=== PATIENT | male | born 1955 | race Two or more races ===

== ENCOUNTER 2018-06-04 16:06 | Inpatient (IN) | payer MEDICAID ==
[~2018-06-04] VITALS: Ht 185.4 cm; Wt 94.8 kg
[2018-06-04 16:08] VITALS: BP 119/82
[2018-06-04] MEDS: Albuterol ud Inhalation HHN SCH ×2 (16:28→17:05)
[2018-06-04] MEDS: Ipratropium 0.02% Inh Soln 2.5ml UD HHN SCH ×2 (16:28→17:05)
--- NOTE | 2018-06-04 16:36 | Emergency Room Report ---
History of Present Illness General Chief Complaint: Dyspnea/Respdistress Source: Patient, EMS Present Illness HPI 63-year-old male with a history of ESRD on Friday HD and COPD presents with shortness of breath for 1 week with associated cough with sputum production, reports it was worse during his dialysis session today, and he only received 2 hours worth of HD. He is actively getting a breathing treatment here with albuterol and ipratropium and feels improvement already. Allergies: Coded Allergies: PENICILLINS (Verified Allergy, Unknown, 06/04/18) Patient History Past Medical History: see triage record Reviewed Nursing Documentation: PMH: Agreed; PSxH: Agreed Nursing Documentation-PMH Hx Hypertension: Yes Hx Asthma: Yes Hx Dialysis: Yes Review of Systems All Other Systems: negative except mentioned in HPI Physical Exam Vital Signs Date Time Temp Pulse Resp B/P (MAP) Pulse Ox O2 Delivery O2 Flow Rate FiO2 06/04/18 16:02 86 24 117/86 100 Nasal Cannula 2.0 06/04/18 16:20 32 Sp02 EP Interpretation: reviewed, abnormal General Appearance: alert, non-toxic, mild distress Head: normocephalic Eyes: bilateral eye normal inspection, bilateral eye PERRL, bilateral eye EOMI ENT: normal ENT inspection, hearing grossly normal, normal pharynx, no angioedema, normal voice, moist mucus membranes Neck: normal inspection, full range of motion, supple, supple/symm/no masses Respiratory: chest non-tender, no rhonchi, no wheezing, decreased breath sounds , accessory muscle use, chest symmetrical, palpation of chest normal Cardiovascular #1: normal peripheral pulses, regular rate, rhythm, JVD, edema - 1+ B/L LE edema Cardiovascular #2: 2+ radial (R), 2+ radial (L) Gastrointestinal: normal inspection, non tender, soft, no mass, no guarding, no rebound Rectal: deferred Genitourinary: normal inspection, no CVA tenderness Musculoskeletal: back normal, gait/station normal, normal range of motion, non- tender, no calf tenderness Neurologic: alert, responsive, 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 Patient has long-standing tobacco use history of 40 pack/years in the past, and reports he's been diagnosed with COPD when I ask him, but he does not have a recorded documented history of this in our EMR. however, his ABG on nasal cannula oxygen reveals hyperoxia and slight metabolic acidosis with over compensatory respiratory alkalosis versus hyperventilation syndrome, inconsistent with COPD or CO2 retention, therefore steroids were not given. He may also just be fluid overloaded in need of further volume removal from HD or have CHF, will be admitted. Troponin negative but BNP elevated. NO chest pain. EKG Diagnostic Results EKG Time: 16:18 EP Interpretation: no st-t changes, LVH and TWI in lateral limb leads Rate: normal Rhythm: NSR ST Segments: no acute changes ASA given to the pt in ED: No Rhythm Strip Diag. Results Rhythm Strip Time: 16:36 EP Interpretation: yes Rate: 75 Rhythm: NSR, no PVC's, no ectopy Chest X-Ray Diagnostic Results Chest X-Ray Diagnostic Results : Chest X-Ray Ordered: Yes # of Views/Limited/Complete: 1 View Indication: Shortness of Breath EP Interpretation: Yes PA Xray: Interpretation reviewed Interpretation: no pneumothorax, other - +bibasilar opacities/effusion L>R Impression: Other - pna, effusion Electronically Signed by: Fuad Snowden MD Last Vital Signs Date Time Temp Pulse Resp B/P (MAP) Pulse Ox O2 Delivery O2 Flow Rate FiO2 06/04/18 16:31 32 06/04/18 16:20 77 20 99 Nasal Cannula 3.0 06/04/18 16:08 119/82 FUAD SNOWDEN M.D Jun 04, 2018 16:36
[2018-06-04 16:50] LABS: BASOPHILS % (AUTO) 1.7 % (0.0-2.0); EOSINOPHILS % (AUTO) 3.6 % (0.0-3.0); HEMATOCRIT 42.5 % (42.0-52.0); HEMOGLOBIN 13.4 G/DL (14.2-18.0); LYMPHOCYTES % (AUTO) 25.1 % (20.0-45.0); MEAN CORPUSCULAR VOLUME 99 FL (80-99); MONOCYTES % (AUTO) 15.6 % (1.0-10.0); NEUTROPHILS % (AUTO) 54.1 % (45.0-75.0); PLATELET COUNT 175 K/UL (150-450); RED BLOOD COUNT 4.27 M/UL (4.70-6.10); RED CELL DISTRIBUTION WIDTH 20.1 % (11.6-14.8); WHITE BLOOD COUNT 4.9 K/UL (4.8-10.8)
[2018-06-04 17:01] LABS: ANION GAP 10 mmol/L (5-15); BLOOD UREA NITROGEN 31 mg/dL (7-18); CALCIUM 8.8 MG/DL (8.5-10.1); CARBON DIOXIDE 20 MMOL/L (21-32); CHLORIDE 104 MMOL/L (98-107); CREATININE 3.9 MG/DL (0.55-1.30); POTASSIUM 5.1 MMOL/L (3.5-5.1); SODIUM 134 MMOL/L (136-145)
[2018-06-04 17:07] LABS: INR 1.1 (0.9-1.1)
[2018-06-04] MEDS ORDERED: Aspirin Baby 81mg ORAL ONE (17:15)
[2018-06-04 17:18] LABS: ALANINE AMINOTRANSFERASE 11 U/L (12-78); ALBUMIN 2.7 G/DL (3.4-5.0); ALBUMIN/GLOBULIN RATIO 0.6 (1.0-2.7); ALKALINE PHOSPHATASE 64 U/L (46-116); ASPARTATE AMINO TRANSFERASE 19 U/L (15-37); BILIRUBIN,TOTAL 0.3 MG/DL (0.2-1.0); CREATINE KINASE 43 U/L (26-308)
--- NOTE | 2018-06-04 17:28 | Diagnostic Imaging Report ---
Indication: Shortness of Technique: One view of the chest Comparison: none Findings: There are bilateral pleural effusions. There is right lung volume loss. There is mild interstitial congestion. There is atelectasis of the left lung base there is a tunneled dialysis catheter in place. The heart is enlarged. Impression: Cardiomegaly Evidence of congestive heart failure with interstitial edema and bilateral pleural effusions
[2018-06-04 18:16] VITALS: BP 111/58
[2018-06-04] MEDS ORDERED: CALCIUM ACETAT667 M1 PO (20:48)
[2018-06-04] MEDS ORDERED: VITAMIN D250000 UNI1 ORAL (20:48)
[2018-06-04] MEDS ORDERED: AZITHROMYCIN500 MG ORAL (20:48)
[2018-06-04] MEDS ORDERED: PREDNISONE20 MG ORAL (20:48)
[2018-06-04] MEDS ORDERED: RENAGEL800 MG ORAL (20:48)
[2018-06-04] MEDS ORDERED: SILVADENE20 GM TP (20:48)
[2018-06-04] MEDS ORDERED: ARANESP200 MCG/1 IV (20:48)
[2018-06-04] MEDS ORDERED: HYDRALAZIN20 MG/1 ML IVP (20:48)
[2018-06-04] MEDS ORDERED: TYLENOL EXTRA500 MG ORAL (20:48)
[2018-06-04] MEDS ORDERED: AQUAPHOR99 GM TP (20:48)
[2018-06-04] MEDS ORDERED: BUMETANIDE2 MG ORAL (20:48)
[2018-06-04] MEDS ORDERED: IPRATROPIU0.2 MG/1 M HHN (20:48)
[2018-06-04] MEDS ORDERED: HEPARIN SO5000 UNIT2 SUBQ (20:48)
[2018-06-04] MEDS ORDERED: DEPAKOTE500 MG PO (20:48)
[2018-06-04] MEDS ORDERED: ALBUTEROL2.5 MG/3 M INH (20:48)
[2018-06-04] MEDS ORDERED: HALOPERIDOL5 MG/1 M2 IM (20:48)
[2018-06-04 21:40] VITALS: BP 123/68
[2018-06-04 22:15] VITALS: BP 103/80
[2018-06-05] VITALS: BP 115/79
[2018-06-05] MEDS: Albuterol/Ipratropium 3ml neb HHN PRN ×2 (02:25→15:38)
[2018-06-05 04:00] VITALS: BP 123/87
[2018-06-05] MEDS: NovoLOG Insulin Flexpen SUBQ SCH ×4 (05:57→20:23)
[2018-06-05 08:00] VITALS: BP 118/76
[2018-06-05] MEDS: Docusate 100mg cap ORAL SCH ×2 (08:25→17:13)
[2018-06-05] MEDS: Heparin 5000 units/ml inj SUBQ SCH ×2 (08:28→20:24)
[2018-06-05 09:47] LABS: ALANINE AMINOTRANSFERASE 11 U/L (12-78); ALBUMIN 2.5 G/DL (3.4-5.0); ALBUMIN/GLOBULIN RATIO 0.6 (1.0-2.7); ALKALINE PHOSPHATASE 59 U/L (46-116); ANION GAP 13 mmol/L (5-15); ASPARTATE AMINO TRANSFERASE 13 U/L (15-37); BILIRUBIN,TOTAL 0.2 MG/DL (0.2-1.0); BLOOD UREA NITROGEN 49 mg/dL (7-18); CALCIUM 8.9 MG/DL (8.5-10.1); CARBON DIOXIDE 20 MMOL/L (21-32); CHLORIDE 104 MMOL/L (98-107); CHOLESTEROL 116 MG/DL (< 200); CREATININE 5.2 MG/DL (0.55-1.30); HDL CHOLESTEROL 41 MG/DL (40-60); POTASSIUM 5.4 MMOL/L (3.5-5.1); SODIUM 137 MMOL/L (136-145); TRIGLYCERIDES 50 MG/DL (30-150)
[2018-06-05 09:53] LABS: BASOPHILS % (AUTO) 1.8 % (0.0-2.0); EOSINOPHILS % (AUTO) 1.8 % (0.0-3.0); HEMATOCRIT 41.5 % (42.0-52.0); HEMOGLOBIN 12.8 G/DL (14.2-18.0); MEAN CORPUSCULAR VOLUME 101 FL (80-99); MONOCYTES % (AUTO) 15.2 % (1.0-10.0); NEUTROPHILS % (AUTO) 58.2 % (45.0-75.0); PLATELET COUNT 181 K/UL (150-450); RED BLOOD COUNT 4.12 M/UL (4.70-6.10); RED CELL DISTRIBUTION WIDTH 20.2 % (11.6-14.8)
[2018-06-05 12:00] VITALS: BP_SYST 121; BP_SYST 146; BP_DIAS 60; BP_DIAS 77
--- NOTE | 2018-06-05 12:04 | Consultation ---
Consult Note Assessment/Plan Renal consult dictated # [id number] Robert Lemons MD Jun 05, 2018 12:04
[2018-06-05] MEDS ORDERED: LORazepam 0.5mg tab ORAL PRN (13:30)
[2018-06-05] MEDS ORDERED: Acetaminophen 500mg (ES) tab ORAL PRN (13:30)
--- NOTE | 2018-06-05 15:38 | Consultation ---
Consult Note Consult Note DICT # [id number] Conrado Cantrell MD Jun 05, 2018 15:38
[2018-06-05 16:00] VITALS: BP_SYST 123; BP_SYST 146; BP_DIAS 60; BP_DIAS 83
[2018-06-05] MEDS ORDERED: Azithromycin 250mg tab ORAL SCH (16:00)
[2018-06-05] MEDS: Bumetanide 1mg tab ORAL SCH (17:13)
--- NOTE | 2018-06-05 18:45 | Consultation ---
DATE OF CONSULTATION: 06/05/2018 NEPHROLOGY CONSULTATION CONSULTING PHYSICIAN: Robert Lemons M.D. REFERRING PHYSICIAN: Luís Baumann M.D. REASON FOR CONSULTATION: End-stage renal disease, requiring hemodialysis. HISTORY OF PRESENT ILLNESS: This is a 63-year-old male with history of end-stage renal disease, on hemodialysis every Friday, , and Friday. I saw him during dialysis on the day of admission. He was complaining shortness of breath. He states that he has been getting short of breath for about a week and was increasing. It was thought maybe he was fluid overloaded. However even after removal more than 2.5 liters of fluid, he was still short of breath. Around 2.5 hours into dialysis, paramedics were called. The patient was brought into the emergency room. He was admitted with acute respiratory failure. PAST MEDICAL HISTORY: The patient does have history of COPD and hypertension and is on dialysis as I mentioned. SOCIAL HISTORY: The patient used to smoke a pack a day for many years, then he went to alf and he had to stop smoking. This is about 10 months ago. He lives in a [employer] and [facility]. ALLERGIES: Penicillin. REVIEW OF SYSTEMS: Complaining of dry cough and shortness of breath. PHYSICAL EXAMINATION: GENERAL: The patient is a 63-year-old male, in no acute distress. VITALS SIGNS: Blood pressure is 118/76, pulse 74, temperature 97.5, respiratory rate 20. HEENT: [place] conjunctivae. Anicteric sclerae. NECK: Supple. LUNGS: Coarse breath sounds bilaterally. HEART: S1 and S2 without murmurs or rubs ABDOMEN: Soft, nontender. EXTREMITIES: No cyanosis or edema. LABORATORY FINDINGS: CBC shows a WBC of 5000, hematocrit 41.5, hemoglobin is 12.8, and platelet is 181,000. Chemistry panel shows a serum sodium 134, potassium 5.4, chloride 104, CO2 20, BUN 49, creatinine 5.2, glucose 76. ASSESSMENT: This is a 64-year-old male, who was admitted shortness of breath, possibly chronic obstructive pulmonary disease exacerbation. The patient may have also acute bronchitis. I doubt fluid overload since ultrafiltration yesterday really did not improve his symptoms. He has history of hypertension. PLAN: The patient will be dialyzed again tomorrow. He needs to be on bronchodilators. Pulmonary consultation will be obtained. Labs will be followed and adjustment will be made in the patient's regimen. Thank you very much, Dr. Baumann for this consultation. Robert Lemons M.D. DR: Nirav JOB#: [id number] CC:
[2018-06-05] MEDS ORDERED: Albuterol ud Inhalation HHN SCH (19:00)
[2018-06-05] MEDS ORDERED: Albuterol ud Inhalation HHN PRN (19:00)
[2018-06-05] MEDS: Albuterol/Ipratropium 3ml neb HHN SCH ×2 (19:20→23:46)
[2018-06-05 20:00] VITALS: BP 125/83
--- NOTE | 2018-06-05 20:05 | Cardiology Progress Note ---
Assessment/Plan Assessment/Plan [id number] probably dcm copd on home osygen per hs esrd on hd acei if ok with renal need more uf bb if ok with pulm onc acute chf imporves entresto non a good option iwht esrd Objective Last 24 Hour Vital Signs Date Time Temp Pulse Resp B/P (MAP) Pulse Ox O2 Delivery O2 Flow Rate FiO2 06/05/18 19:20 Nasal Cannula 3.0 32 06/05/18 19:20 83 18 96 Nasal Cannula 3.0 32 06/05/18 19:20 96 Nasal Cannula 3.0 32 06/05/18 16:00 82 06/05/18 16:00 98.0 79 20 123/83 (96) 96 06/05/18 15:48 82 22 98 Nasal Cannula 3.0 32 06/05/18 15:38 84 25 97 Nasal Cannula 3.0 32 06/05/18 12:00 97.5 81 21 121/77 (92) 100 06/05/18 12:00 79 06/05/18 09:00 Nasal Cannula 2.0 Nasal Cannula 2.0 06/05/18 08:15 Nasal Cannula 2.0 28 06/05/18 08:15 95 Nasal Cannula 2.0 28 06/05/18 08:15 74 21 Nasal Cannula 2.0 28 06/05/18 08:00 97.5 76 20 118/76 (90) 97 06/05/18 08:00 74 06/05/18 04:00 74 06/05/18 04:00 96.8 81 19 123/87 (99) 97 06/05/18 02:30 89 20 99 Nasal Cannula 3.0 32 06/05/18 02:13 75 20 96 Nasal Cannula 3.0 32 06/05/18 00:00 97.3 73 18 115/79 (91) 99 06/05/18 00:00 74 06/04/18 22:23 Nasal Cannula 3.0 06/04/18 22:15 97.5 70 18 103/80 (88) 98 06/04/18 22:12 71 06/04/18 22:00 98.5 74 20 123/68 100 Nasal Cannula 2.0 87 06/04/18 21:40 98.5 87 20 123/68 100 Nasal Cannula 2.0 Intake and Output 06/04/18 06/05/18 19:00 07:00 Intake Total 150 ml 240 ml Balance 150 ml 240 ml Intake Oral 240 ml IV Total 150 ml # Voids 1 2 # Bowel Movements 1 Laboratory Tests Test 06/05/18 07:20 White Blood Count 5.0 K/UL (4.8-10.8) Red Blood Count 4.12 M/UL (4.70-6.10) L Hemoglobin 12.8 G/DL (14.2-18.0) L Hematocrit 41.5 % (42.0-52.0) L Mean Corpuscular Volume 101 FL (80-99) H Mean Corpuscular Hemoglobin 31.0 PG (27.0-31.0) Mean Corpuscular Hemoglobin Concent 30.8 G/DL (32.0-36.0) L Red Cell Distribution Width 20.2 % (11.6-14.8) H Platelet Count 181 K/UL (150-450) Mean Platelet Volume 7.6 FL (6.5-10.1) Neutrophils (%) (Auto) 58.2 % (45.0-75.0) Lymphocytes (%) (Auto) 23.0 % (20.0-45.0) Monocytes (%) (Auto) 15.2 % (1.0-10.0) H Eosinophils (%) (Auto) 1.8 % (0.0-3.0) Basophils (%) (Auto) 1.8 % (0.0-2.0) Sodium Level 137 MMOL/L (136-145) Potassium Level 5.4 MMOL/L (3.5-5.1) H Chloride Level 104 MMOL/L (98-107) Carbon Dioxide Level 20 MMOL/L (21-32) L Anion Gap 13 mmol/L (5-15) Blood Urea Nitrogen 49 mg/dL (7-18) H Creatinine 5.2 MG/DL (0.55-1.30) H Estimat Glomerular Filtration Rate 11.3 mL/min (>60) Glucose Level 76 MG/DL (74-106) Hemoglobin A1c 5.3 % (4.3-6.0) Calcium Level 8.9 MG/DL (8.5-10.1) Total Bilirubin 0.2 MG/DL (0.2-1.0) Aspartate Amino Transf (AST/SGOT) 13 U/L (15-37) L Alanine Aminotransferase (ALT/SGPT) 11 U/L (12-78) L Alkaline Phosphatase 59 U/L (46-116) Pro-B-Type Natriuretic Peptide > 99294 pg/mL (0-125) H Total Protein 6.9 G/DL (6.4-8.2) Albumin 2.5 G/DL (3.4-5.0) L Globulin 4.4 g/dL Albumin/Globulin Ratio 0.6 (1.0-2.7) L Triglycerides Level 50 MG/DL (30-150) Cholesterol Level 116 MG/DL (< 200) LDL Cholesterol 73 mg/dL (<100) HDL Cholesterol 41 MG/DL (40-60) Cholesterol/HDL Ratio 2.8 (3.3-4.4) L Thyroid Stimulating Hormone (TSH) 3.097 uiU/mL (0.358-3.740) aBldo Mcneill MD Jun 05, 2018 20:05
[2018-06-05] MEDS ORDERED: Valproic Acid 250mg/5ml Liquid ORAL SCH (21:00)
--- NOTE | 2018-06-05 21:45 | Consultation ---
DATE OF CONSULTATION: 06/05/2018 CARDIOLOGY CONSULTATION CONSULTING PHYSICIAN: Baldo Mcneill M.D. REQUESTING PHYSICIAN: Luís Baumann M.D. REASON FOR REFERRAL: Congestive heart failure. HISTORY OF PRESENT ILLNESS: This is an elderly gentleman, who has presented to the hospital because of shortness of breath. Basically, he has history of end-stage renal disease and has been on dialysis for the past 8 months to about a year or so. He has been getting increasing shortness of breath. He has several medical problems including chronic obstructive pulmonary disease for which he is on home oxygen therapy, but more recently he has had increasing episodes of shortness of breath. He is not able to lay down at home and he has 2 pillow usage dyspnea on exertion to the point that he has stopped really moving around much even with his oxygen that he has been using for some time. He had one episode of chest pain, sharp sensation in the left side of the chest that only lasted a second, otherwise, he does not have any shortness of breath. He uses 2 pillows. He does not really have any dizziness or lightheadedness on standing and he has occasional palpitations. PAST MEDICAL HISTORY: Positive for high blood pressure. Positive for end-stage renal disease, on hemodialysis. No history of heart attack. No cancer. No stroke. No hepatitis or tuberculosis. He does have asthma and emphysema as mentioned. No ulcers. He has no liver problems, thyroid problems, anemia, arthritis, HIV, or blood clots. ALLERGIES: He is allergic to penicillin. SOCIAL HISTORY: He used to smoke. He quit approximately 10 months ago. Does not drink alcoholic beverages. He denies any drug use. REVIEW OF SYSTEMS: GASTROINTESTINAL: He has had some constipation. GENITOURINARY: He still makes some urine. He is on hemodialysis 3 times a week. CONSTITUTIONAL: Negative. NEUROLOGICAL: Negative. PHYSICAL EXAMINATION: GENERAL: Shows to be elderly gentleman, in no respiratory distress, although he is somewhat tachypneic. NECK: Supple. No jugular venous distention. LUNGS: Decreased breath sounds noted bilaterally. There is decreased air movement also noted bilaterally. There are some crackles noted on the right base. CARDIAC: Regular rate and rhythm. No heaves or thrills noted. There is a faint holosystolic regurgitant murmur noted at the apex. ABDOMEN: Soft and nontender. Positive bowel sounds. EXTREMITIES: There is no clubbing, cyanosis, or edema. NEUROLOGIC: He is awake, alert, responsive, and in no apparent respiratory distress. LABORATORY VALUES: He has got a chest x-ray that shows evidence of pulmonary edema and congestive heart failure. White count of 5, hemoglobin 12.8, and platelet count of 181,000. Blood gases, pH is 7.33, pCO2 32, pO2 of 200, bicarb was 18, and 97% saturation. INR 1.1 and PTT of 56. Sodium is 137, potassium 5.4, chloride 104, bicarb 20, BUN of 49, creatinine 5.2, and a glucose of 76. Liver function tests are normal. Troponin 0.07. ProBNP is greater than 35,000. Albumin of 2.4. TSH is 3.097. Total cholesterol 116 with LDL of 73 and HDL of 43. His electrocardiogram shows sinus rhythm. The voltage criteria for left ventricular hypertrophy requires QRS widening. There is a right bundle-branch conduction defect. There is a T-wave inversion in 1 and aVL as well as V1 and V2. Thus, the left anterior fascicular block may be present. Echocardiogram shows preliminary severe LV enlargement, global hypokinesis, ejection fraction 50%, moderate right ventricular enlargement, severe mitral regurgitation, and diastolic relaxation abnormalities and pulmonary pressures in the 50s. ASSESSMENT/PLAN: 1. Congestive heart failure. 2. Chronic obstructive pulmonary disease. 3. End-stage renal disease. On hemodialysis. 4. Home oxygen therapy. 5. Probable dilated cardiomyopathy. 6. History of hypertension. PLAN: This patient was seen in cardiac consultation. Echocardiogram has been performed. Need to be confirmed. The patient has increasing shortness of breath over the past few weeks and this is not an acute event. Nevertheless, he has had increasing shortness of breath on top of his chronic obstructive pulmonary disease for which he uses oxygen that makes it difficult for him to be comfortable. He should be, at this time, treated with a combination of medications including VINCE inhibitors, if okay with Nephrology and if once his congestive heart failure resolves, he should be receiving some beta-blockers if not contraindicated from the Pulmonary point of view. Interests are unlikely to be adequate level in this patient with end-stage renal disease, and he is getting diuretics today here in the hospital with 2 mg 3 times a day although I suspect he may require more ultrafiltration to help him with that. An ischemia evaluation may be an appropriate test to do to exclude an underlying coronary disease, however, that would require further discussion. Cardiac enzymes will be checked as a matter of routine. Baldo Mcneill M.D. DR: CHRISTOS JOB#: [id number] CC:
--- NOTE | 2018-06-05 22:45 | Consultation ---
DATE OF CONSULTATION: 06/05/2018 PULMONARY CONSULTATION CONSULTING PHYSICIAN: Conrado Cantrell M.D. REFERRING PHYSICIAN: Luís Baumann M.D. REASON FOR CONSULTATION: Chronic obstructive pulmonary disease exacerbation. HISTORY OF PRESENT ILLNESS: The patient is a 63-year-old male, former smoker with a history of end-stage renal disease, on dialysis, and chronic obstructive pulmonary disease, who presented with cough, congestion, and shortness of breath for a week. Since presenting to the ER, he was afebrile with T-max 98.5, and he has been saturating well on about 2 liters of oxygen. He has otherwise been hemodynamically stable. Chest x-ray in the emergency department demonstrated mild pulmonary vascular congestion with bilateral effusions. The patient has been seen by renal and the plan for dialysis are underway. He actually states he feels better. He is not a good historian himself and some of his history is obtained from . His blood gas, 7.33///16. White count 5, hemoglobin of 12, and platelet count of 181, bicarb is 20 on the chemistry and he had a proBNP of greater than 35,000. PAST MEDICAL HISTORY: 1. End-stage renal disease on dialysis. 2. Chronic obstructive pulmonary disease. 3. Congestive heart failure. 4. Hypertension. 5. Some underlying psychiatric disorder. ALLERGIES: Penicillin. MEDICATIONS: Prior to admission medications reviewed. Current medications reviewed. SOCIAL HISTORY: He is a former smoker. Denies any current tobacco use. No drug or alcohol use per the patient. FAMILY HISTORY: Noncontributory. REVIEW OF SYSTEMS: Negative other than the history of present illness. PHYSICAL EXAMINATION: VITAL SIGNS: Temperature 97.5, pulse 76, blood pressure 118/76, respiratory 20, and saturating 97% on room air. GENERAL: He is a frail male, appears older than stated age. HEENT: Normocephalic and atraumatic. Oropharynx is clear with poor dentition. NECK: Supple without lymphadenopathy or jugular venous distention. CHEST: Distant, faint. Scattered rhonchi, fairly clear, otherwise good air movement. HEART: Regular rate and rhythm. ABDOMEN: Soft, nontender, and nondistended. EXTREMITIES: No cyanosis, clubbing. Mild edema at the ankles. ANCILLARY DATA: White count 5.9, hemoglobin 12.8, and platelet count 181. ABG 7.338/31/199/16/97. INR 1.1. Sodium 137, potassium 5.4, chloride 104, bicarbonate 20, BUN 29, creatinine 5.2, glucose 76. Hemoglobin A1c 5.3, calcium 8.9. Total bilirubin 0.2, AST 13, ALT 11, alkaline phosphatase 59. BNP greater than 35,000. Troponin negative. Albumin 2.5. Total protein 6.9. Globulin 4.4. Chest x-ray, pulmonary vascular congestion, small bilateral effusions. ASSESSMENT: The patient is a 63-year-old male, former smoker with underlying psychiatric disorder, chronic obstructive pulmonary disease, end-stage renal disease on dialysis, hypertension, presenting with shortness of breath in the setting of chronic obstructive pulmonary disease exacerbation and volume overload, plus or minus an antecedent viral URI/tracheobronchitis. PROBLEM LIST: 1. Chronic obstructive pulmonary disease with acute exacerbation. 2. Viral URI versus tracheobronchitis. 3. Hypoxemia. 4. End-stage renal disease on dialysis. 5. Likely decompensated heart failure. 6. Small bilateral pleural effusion secondary to above. 7. Prior smoker. 8. History of psychiatric disorder. TREATMENT PLAN: 1. Optimize pulmonary hygiene/mobilize as tolerated. 2. Titrate down FiO2 to keep saturations greater than 90%. 3. Mfzoo-ypg-nicaq and p.r.n. bronchodilators. 4. Prednisone 60 mg p.o. daily (today is day #1). 5. We will start azithromycin p.o. for chronic obstructive pulmonary disease exacerbation. 6. Monitor for signs of respiratory infection. 7. Monitor volumes and renal function, Bumex and dialysis per Renal. 8. Monitor effusions. 9. Aspiration precautions. 10. DVT prophylaxis with heparin subcutaneous. 11. The patient should have outpatient pulmonary evaluation to optimize inhaler regimen. Dr. Baumann, thank you for allowing me to assist in the care of your patient. If I may be of any assistance in the future, please do not hesitate to ask. Conrado Cantrell M.D. DR: Celestine JOB#: [id number] CC:
[2018-06-06] VITALS: BP 128/93
--- NOTE | 2018-06-06 | History and Physical Report ---
DATE OF ADMISSION: 06/04/2018 HISTORY: The patient is a 63-year-old gentleman with a history of end-stage renal disease, on dialysis and history of chronic obstructive pulmonary disease, who is followed by Dr. Lemons, his primary, for his dialysis. Apparently after removing 4 liters yesterday, the patient still felt short of breath and was transferred to the ER for further evaluation. He admits to increasing shortness of breath and cough over the past week although he has been afebrile. Upon evaluation in the ER, he was noted to have mild pulmonary vascular congestion and bilateral effusions. He denies any fevers or chills. No headaches. No sore throat. No abdominal pain. PAST MEDICAL HISTORY: Includes a history of end-stage renal disease, history of chronic obstructive pulmonary disease, history of congestive heart failure, history of hypertension, and history of underlying psychiatric disorder. MEDICATIONS: Please see his reconciled med list. ALLERGIES: Penicillin. SOCIAL HISTORY: The patient used to smoke for many years. Does not smoke or drink any alcohol or use any drugs currently. FAMILY HISTORY: Noncontributory. REVIEW OF SYSTEMS: A 12-point review of systems reviewed and negative except for above. PHYSICAL EXAMINATION: GENERAL: He is well developed, well nourished, currently in no apparent distress. VITAL SIGNS: Blood pressure 118/76, pulse 76, temperature 97.5, respirations 20, and saturations 97% on room air. HEENT: Head is normocephalic and atraumatic. Pupils are equal and reactive to light. Extraocular muscles are intact. Eyes are anicteric. Neck is supple. No JVP. No bruits. Throat, mucous membranes are dry . He has got poor dentition. LUNGS: He has distant breath sounds, scattered rhonchi, and crackles at the bases. HEART: Regular rate and rhythm. ABDOMEN: Soft. Positive bowel sounds. Nondistended. Nontender. EXTREMITIES: No clubbing or cyanosis. He has got trace 1+ edema in bilateral ankles. NEURO: Nonfocal. PSYCH: Normal mood and affect. LABORATORY DATA: White count 5.9, hemoglobin 12.8, and platelet count 181,000. Sodium 137, potassium 5.4, chloride 104, bicarb 20, BUN 29, creatinine 5.2, and glucose 76. BNP is greater than 35,000. Troponin was negative. Albumin 2.4. Total protein 6.9. Chest x-ray, pulmonary vascular congestion and bilateral pleural effusions. EKG noted. ASSESSMENT AND PLAN: The patient is a 63-year-old gentleman with history of congestive heart failure, chronic obstructive pulmonary disease, and end-stage renal disease, on dialysis, presents with increased shortness of breath despite taking 4 liters off dialysis per discussion with Dr. Lemons. The patient is noted to be in pulmonary vascular congestion and bilateral effusions. Also, has a history of chronic obstructive pulmonary disease. The patient will be admitted to a monitored bed. We will obtain a 2D echo and follow-up troponins. We will ask Cardiology consultation to see him. We will monitor effusions. Consider thoracentesis. I will ask also Pulmonary consultation to see him given respiratory treatments and bronchodilators. Empirically started him on Zithromax. Consider giving him some steroids as well. The patient should be on DVT and ulcer prophylaxis. Luís Baumann M.D. DR: NADINE JOB#: [id number] CC:
[2018-06-06 04:00] VITALS: BP 113/83
[2018-06-06] MEDS: ALPRAZolam 0.25mg tab ORAL PRN ×2 (05:53→17:48)
[2018-06-06] MEDS: NovoLOG Insulin Flexpen SUBQ SCH ×4 (05:55→20:50)
[2018-06-06] MEDS: Albuterol/Ipratropium 3ml neb HHN SCH ×3 (07:49→19:31)
[2018-06-06 08:00] VITALS: BP 121/82
[2018-06-06 08:35] LABS: BASOPHILS % (AUTO) 1.4 % (0.0-2.0); HEMATOCRIT 39.2 % (42.0-52.0); HEMOGLOBIN 12.3 G/DL (14.2-18.0); LYMPHOCYTES % (AUTO) 27.2 % (20.0-45.0); MEAN CORPUSCULAR VOLUME 100 FL (80-99); MONOCYTES % (AUTO) 15.3 % (1.0-10.0); NEUTROPHILS % (AUTO) 53.1 % (45.0-75.0); PLATELET COUNT 171 K/UL (150-450); RED BLOOD COUNT 3.91 M/UL (4.70-6.10); RED CELL DISTRIBUTION WIDTH 20.2 % (11.6-14.8)
[2018-06-06 08:58] LABS: ANION GAP 12 mmol/L (5-15); BLOOD UREA NITROGEN 73 mg/dL (7-18); CALCIUM 8.7 MG/DL (8.5-10.1); CARBON DIOXIDE 20 MMOL/L (21-32); CHLORIDE 103 MMOL/L (98-107); CREATININE 6.9 MG/DL (0.55-1.30); POTASSIUM 5.7 MMOL/L (3.5-5.1); SODIUM 135 MMOL/L (136-145)
[2018-06-06] MEDS ORDERED: Vitamin D 1000 IU Tab ORAL SCH (09:00)
[2018-06-06] MEDS: Docusate 100mg cap ORAL SCH ×2 (09:42→17:42)
[2018-06-06] MEDS: Bumetanide 1mg tab ORAL SCH ×2 (09:42→13:49)
[2018-06-06] MEDS: Azithromycin 250mg tab ORAL SCH (09:42)
[2018-06-06] MEDS: Heparin 5000 units/ml inj SUBQ SCH ×2 (09:44→20:56)
--- NOTE | 2018-06-06 10:33 | Pulmonology Progress Note ---
Assessment/Plan Problems: (1) Psychiatric disorder (2) ESRD on hemodialysis (3) CHF (congestive heart failure) (4) Acute decompensated heart failure (5) COPD exacerbation Assessment/Plan ASSESSMENT: The patient is a 63-year-old male, former smoker with underlying psychiatric disorder, chronic obstructive pulmonary disease, end-stage renal disease on dialysis, hypertension, presenting with shortness of breath in the setting of chronic obstructive pulmonary disease exacerbation and volume overload, plus or minus an antecedent viral URI/ tracheobronchitis. PROBLEM LIST: 1. Chronic obstructive pulmonary disease with acute exacerbation. 2. Viral URI versus tracheobronchitis. 3. Hypoxemia. 4. End-stage renal disease on dialysis. 5. CHF with severe systolic dysfunction (EF 15%) and ADHF 6. Small bilateral pleural effusion secondary to above. 7. Prior smoker. 8. History of psychiatric disorder. TREATMENT PLAN: 1. Optimize pulmonary hygiene/mobilize as tolerated. 2. Titrate down FiO2 to keep saturations greater than 90%. 3. Xzijd-vfj-qkanv and p.r.n. bronchodilators. 4. Prednisone 60 mg p.o. daily (D2). 5. PO azithromycin (D2) 6. F/U cardiology recs, medical management, plan for ischemia evaluation, ? life vest 7. Monitor volumes and renal function, Bumex and dialysis per Renal --> Plan for HD today 8. Monitor effusions. 9. Aspiration precautions. 10. DVT prophylaxis with heparin subcutaneous. 11. The patient should have outpatient pulmonary evaluation to optimize inhaler regimen. Subjective Allergies: Coded Allergies: PENICILLINS (Verified Allergy, Unknown, 06/04/18) Subjective LVEF 15% AFVSS, stable on 3L + cough + SOB no CP no F/C Objective Last 24 Hour Vital Signs Date Time Temp Pulse Resp B/P (MAP) Pulse Ox O2 Delivery O2 Flow Rate FiO2 06/06/18 09:00 Nasal Cannula 2.0 Nasal Cannula 2.0 06/06/18 08:00 91 06/06/18 08:00 97.1 91 22 121/82 (95) 100 06/06/18 07:58 84 18 98 Nasal Cannula 3.0 32 06/06/18 07:49 Nasal Cannula 3.0 32 06/06/18 07:49 82 20 97 Nasal Cannula 3.0 32 06/06/18 07:49 98 Nasal Cannula 3.0 32 12/1/18 04:00 97.8 87 20 113/83 (93) 98 06/06/18 04:00 86 06/06/18 00:00 85 06/06/18 00:00 98.8 94 20 128/93 (105) 96 06/05/18 23:56 87 18 98 Nasal Cannula 3.0 32 06/05/18 23:46 86 20 95 Nasal Cannula 3.0 32 06/05/18 21:00 Nasal Cannula 2.0 06/05/18 20:00 98.1 85 22 125/83 (97) 97 06/05/18 20:00 87 06/05/18 19:30 86 20 98 Nasal Cannula 3.0 32 06/05/18 19:20 Nasal Cannula 3.0 32 06/05/18 19:20 83 18 96 Nasal Cannula 3.0 32 06/05/18 19:20 96 Nasal Cannula 3.0 32 06/05/18 16:00 82 06/05/18 16:00 98.0 79 20 123/83 (96) 96 06/05/18 15:48 82 22 98 Nasal Cannula 3.0 32 06/05/18 15:38 84 25 97 Nasal Cannula 3.0 32 06/05/18 12:00 97.5 81 21 121/77 (92) 100 06/05/18 12:00 79 Intake and Output 06/05/18 06/06/18 19:00 07:00 Intake Total 400 ml Output Total 300 ml Balance 100 ml Intake Oral 400 ml Output Urine Total 300 ml # Voids 5 # Bowel Movements 1 1 General Appearance: no acute distress HEENT: normocephalic, atraumatic, anicteric, mucous membranes moist Respiratory/Chest: chest wall non-tender, crackles/rales Cardiovascular: normal peripheral pulses, normal rate, regular rhythm Abdomen: normal bowel sounds, soft, non tender, no organomegaly, non distended , no mass Extremities: no cyanosis, no clubbing, no edema Laboratory Tests 06/06/18 06:15: White Blood Count 5.0, Red Blood Count 3.91L, Hemoglobin 12.3L, Hematocrit 39.2L , Mean Corpuscular Volume 100H, Mean Corpuscular Hemoglobin 31.4H, Mean Corpuscular Hemoglobin Concent 31.3L, Red Cell Distribution Width 20.2H, Platelet Count 171, Mean Platelet Volume 6.8, Neutrophils (%) (Auto) 53.1, Lymphocytes (%) (Auto) 27.2, Monocytes (%) (Auto) 15.3H, Eosinophils (%) (Auto) 3.0, Basophils (%) (Auto) 1.4, Sodium Level 135L, Potassium Level 5.7H, Chloride Level 103, Carbon Dioxide Level 20L, Anion Gap 12, Blood Urea Nitrogen 73H, Creatinine 6.9H, Estimat Glomerular Filtration Rate 8.2, Glucose Level 118H , Calcium Level 8.7, Pro-B-Type Natriuretic Peptide > 11535M Current Medications Medications (Trade) Dose Ordered Sig/Cynthia Route PRN Reason Start Time Stop Time Status Last Admin Dose Admin Acetaminophen (Tylenol) 500 mg Q6H PRN ORAL Mild Pain/Temp > 100.5 06/05/18 13:30 07/05/18 13:29 06/05/18 13:52 Al Hydroxide/Mg Hydroxide (Mylanta) 30 ml BID PRN ORAL Dyspepsia 06/04/18 23:45 07/04/18 23:44 Albuterol/ Ipratropium (Albuterol/ Ipratropium) 3 ml Q4H PRN HHN Shortness of Breath 06/04/18 23:45 06/09/18 23:44 06/05/18 15:38 Albuterol/ Ipratropium (Albuterol/ Ipratropium) 3 ml Q6HRT HHN 06/05/18 19:00 06/10/18 18:59 06/06/18 07:49 Alprazolam (Xanax) 0.25 mg BID PRN ORAL For Anxiety 06/04/18 23:45 06/11/18 23:44 06/06/18 05:53 Azithromycin (Zithromax) 250 mg DAILY ORAL 06/06/18 09:00 06/13/18 08:59 06/06/18 09:42 Bumetanide (Bumex) 2 mg TID ORAL 06/05/18 18:00 07/05/18 17:59 06/06/18 09:42 Dextrose (Dextrose 50%) 25 ml Q30M PRN IV Hypoglycemia 06/04/18 23:45 07/04/18 23:44 Dextrose (Dextrose 50%) 50 ml Q30M PRN IV Hypoglycemia 06/04/18 23:45 07/04/18 23:44 Docusate Sodium (Colace) 100 mg TWICE A DAY ORAL 06/05/18 09:00 07/05/18 08:59 06/06/18 09:42 Ferrous Sulfate (Feosol) 325 mg THREE TIMES A DAY ORAL 06/05/18 18:00 07/05/18 17:59 06/06/18 09:42 Folic Acid (Folate) 1 mg DAILY ORAL 06/06/18 09:00 07/06/18 08:59 06/06/18 09:42 Heparin Sodium (Porcine) (Heparin 5000 units/ml) 5,000 units EVERY 12 HOURS SUBQ 06/05/18 09:00 07/05/18 08:59 06/06/18 09:44 Insulin Aspart (NovoLOG) BEFORE MEALS AND HS SUBQ 06/05/18 06:30 07/05/18 06:29 06/05/18 20:23 Lorazepam (Ativan) 0.5 mg HSPRN PRN ORAL For anxiety causing insomnia 06/05/18 13:30 06/12/18 13:29 06/05/18 20:24 Pantoprazole (Protonix) 40 mg DAILY ORAL 06/05/18 09:00 07/05/18 08:59 06/06/18 09:42 Prednisone (predniSONE) 60 mg DAILY ORAL 06/06/18 09:00 07/06/18 08:59 06/06/18 09:42 Risperidone (RisperDAL) 0.5 mg DAILYPRN PRN ORAL Agitation 06/05/18 13:30 07/05/18 13:29 Sevelamer Carbonate (Renvela) 800 mg THREE TIMES A DAY ORAL 06/05/18 18:00 07/05/18 17:59 06/06/18 09:42 Valproic Acid (Depakene) 15 mg EVERY 12 HOURS ORAL 06/05/18 21:00 07/05/18 20:59 UNV Vitamin D (Vitamin D) 5,000 intlu DAILY ORAL 06/06/18 09:00 07/06/18 08:59 Conrado Cantrell MD Jun 06, 2018 10:33
[2018-06-06] MEDS: Vitamin D 1000 IU Tab ORAL SCH (10:35)
[2018-06-06 12:00] VITALS: BP 126/83
--- NOTE | 2018-06-06 14:40 | Cardiology Report ---
APPROVED REPORT EXAM: Two-dimensional and M-mode echocardiogram with Doppler and color Doppler. INDICATION Shortness of breath M-Mode DIMENSIONS IVSd1.7 (0.7-1.1cm)Left Atrium (MM)3.3 (1.6-4.0cm) LVDd6.7 (3.5-5.6cm)Aortic Root3.7 (2.0-3.7cm) PWd1.5 (0.7-1.1cm)Aortic Cusp Exc.2.3 (1.5-2.0cm) LVDs6.5 (2.5-4.0cm) PWs1.9 cm Technically difficult study due to poor acoustic windows. Study quality precludes accurate assessment of regional wall motion. Severe left ventricular enlargement. Global left ventricular hypokinesis. Left ventricular ejection fraction is estimated to be 15%. Mild left ventricular hypertrophy. Large posterior pleural effusion. Mild bi-atrial enlargement. Moderate right ventricular enlargement. Mild focal aortic valve sclerosis with adequate cusp excursion. Mildly thickened mitral valve leaflets with normal excursion. Mild mitral annulus and aortic root calcification. Pulmonic valve not visualized. Normal tricuspid valve structure. IVC dilated at 2.3 cm without physiological collapse, suggestive of increased RA pressure (15 mmHg). A color flow and spectral Doppler study was performed and revealed: No aortic insufficiency. Severe eccentric mitral regurgitation. Mitral diastolic velocities suggest left ventricularpseudo-normal pattern consistent with moderate LV diastolic dysfunction (Grade II). Moderate tricuspid regurgitation. Tricuspid systolic velocities suggests peak right ventricular systolic pressure of 55 mmHg, consistent with moderate pulmonary hypertension.
--- NOTE | 2018-06-06 14:55 | Cardiology Report ---
APPROVED REPORT EKG Measurement Heart [id number] Normal sinus rhythm Left axis deviation Left ventricular hypertrophy with repolarization abnormality Consider septal wall infarct, age indeterminate. Abnormal ECG
[2018-06-06 16:00] VITALS: BP 130/89
--- NOTE | 2018-06-06 17:09 | Nephrology Progress Note ---
Assessment/Plan Problem List: (1) ESRD on hemodialysis (2) COPD exacerbation (3) CHF (congestive heart failure) (4) Acute bronchitis Plan HD tomorrow bronchodilators steroids abxs ischemic evaluation ? Subjective Subjective C/O anxiety Objective Objective Last 24 Hour Vital Signs Date Time Temp Pulse Resp B/P (MAP) Pulse Ox O2 Delivery O2 Flow Rate FiO2 06/06/18 16:00 97.3 87 18 130/89 (103) 95 06/06/18 16:00 94 06/06/18 13:31 86 20 98 Nasal Cannula 3.0 32 06/06/18 13:24 86 18 96 Nasal Cannula 3.0 32 06/06/18 12:00 97.0 83 20 126/83 (97) 98 06/06/18 12:00 79 06/06/18 09:00 Nasal Cannula 2.0 Nasal Cannula 2.0 06/06/18 08:00 91 06/06/18 08:00 97.1 91 22 121/82 (95) 100 06/06/18 07:58 84 18 98 Nasal Cannula 3.0 32 06/06/18 07:49 Nasal Cannula 3.0 32 06/06/18 07:49 82 20 97 Nasal Cannula 3.0 32 06/06/18 07:49 98 Nasal Cannula 3.0 32 06/06/18 04:00 97.8 87 20 113/83 (93) 98 06/06/18 04:00 86 06/06/18 00:00 85 06/06/18 00:00 98.8 94 20 128/93 (105) 96 06/05/18 23:56 87 18 98 Nasal Cannula 3.0 32 06/05/18 23:46 86 20 95 Nasal Cannula 3.0 32 06/05/18 21:00 Nasal Cannula 2.0 06/05/18 20:00 98.1 85 22 125/83 (97) 97 06/05/18 20:00 87 06/05/18 19:30 86 20 98 Nasal Cannula 3.0 32 06/05/18 19:20 Nasal Cannula 3.0 32 06/05/18 19:20 83 18 96 Nasal Cannula 3.0 32 06/05/18 19:20 96 Nasal Cannula 3.0 32 Intake and Output 06/05/18 06/06/18 19:00 07:00 Intake Total 400 ml Output Total 300 ml Balance 100 ml Intake Oral 400 ml Output Urine Total 300 ml # Voids 5 # Bowel Movements 1 1 Laboratory Tests 06/06/18 06:15: White Blood Count 5.0, Red Blood Count 3.91L, Hemoglobin 12.3L, Hematocrit 39.2L , Mean Corpuscular Volume 100H, Mean Corpuscular Hemoglobin 31.4H, Mean Corpuscular Hemoglobin Concent 31.3L, Red Cell Distribution Width 20.2H, Platelet Count 171, Mean Platelet Volume 6.8, Neutrophils (%) (Auto) 53.1, Lymphocytes (%) (Auto) 27.2, Monocytes (%) (Auto) 15.3H, Eosinophils (%) (Auto) 3.0, Basophils (%) (Auto) 1.4, Sodium Level 135L, Potassium Level 5.7H, Chloride Level 103, Carbon Dioxide Level 20L, Anion Gap 12, Blood Urea Nitrogen 73H, Creatinine 6.9H, Estimat Glomerular Filtration Rate 8.2, Glucose Level 118H , Calcium Level 8.7, Pro-B-Type Natriuretic Peptide > 44888C Height (Feet): 6 Height (Inches): 1.00 Weight (Pounds): 192 Cardiovascular: normal rate Respiratory/Chest: other - coarse BSs Robert Lemons MD Jun 06, 2018 17:09
[2018-06-06] MEDS ORDERED: Heparin Sod 1000 units/ml 10ml IV PRN (17:13)
--- NOTE | 2018-06-06 17:29 | Cardiology Progress Note ---
Assessment/Plan Assessment/Plan congestive heart failure, acute on chronic, with severe systolic LV dysfunction , plus COPD, smoker in the past he is on dialysis probably will need ischemia work up not a candidate for ACEI due to ESRD and not for b-blockers due ot severe COPD Subjective Subjective the patient is still short of breath, but less than yesterday has less cough denies chest pain Objective Last 24 Hour Vital Signs Date Time Temp Pulse Resp B/P (MAP) Pulse Ox O2 Delivery O2 Flow Rate FiO2 06/06/18 16:00 97.3 87 18 130/89 (103) 95 06/06/18 16:00 94 06/06/18 13:31 86 20 98 Nasal Cannula 3.0 32 06/06/18 13:24 86 18 96 Nasal Cannula 3.0 32 06/06/18 12:00 97.0 83 20 126/83 (97) 98 06/06/18 12:00 79 06/06/18 09:00 Nasal Cannula 2.0 Nasal Cannula 2.0 06/06/18 08:00 91 06/06/18 08:00 97.1 91 22 121/82 (95) 100 06/06/18 07:58 84 18 98 Nasal Cannula 3.0 32 06/06/18 07:49 Nasal Cannula 3.0 32 06/06/18 07:49 82 20 97 Nasal Cannula 3.0 32 06/06/18 07:49 98 Nasal Cannula 3.0 32 06/06/18 04:00 97.8 87 20 113/83 (93) 98 06/06/18 04:00 86 06/06/18 00:00 85 06/06/18 00:00 98.8 94 20 128/93 (105) 96 06/05/18 23:56 87 18 98 Nasal Cannula 3.0 32 06/05/18 23:46 86 20 95 Nasal Cannula 3.0 32 06/05/18 21:00 Nasal Cannula 2.0 06/05/18 20:00 98.1 85 22 125/83 (97) 97 06/05/18 20:00 87 06/05/18 19:30 86 20 98 Nasal Cannula 3.0 32 06/05/18 19:20 Nasal Cannula 3.0 32 06/05/18 19:20 83 18 96 Nasal Cannula 3.0 32 06/05/18 19:20 96 Nasal Cannula 3.0 32 General Appearance: moderate distress EENT: PERRL/EOMI Neck: JVD Rhythm: NSR Cardiovascular: systolic murmur - on LSB Respiratory/Chest: crackles/rales Abdomen: non tender Extremities: no swelling Intake and Output 06/05/18 06/06/18 18:59 06:59 Intake Total 400 ml Output Total 300 ml Balance 100 ml Intake Oral 400 ml Output Urine Total 300 ml # Voids 5 # Bowel Movements 1 1 Laboratory Tests Test 06/06/18 06:15 White Blood Count 5.0 K/UL (4.8-10.8) Red Blood Count 3.91 M/UL (4.70-6.10) L Hemoglobin 12.3 G/DL (14.2-18.0) L Hematocrit 39.2 % (42.0-52.0) L Mean Corpuscular Volume 100 FL (80-99) H Mean Corpuscular Hemoglobin 31.4 PG (27.0-31.0) H Mean Corpuscular Hemoglobin Concent 31.3 G/DL (32.0-36.0) L Red Cell Distribution Width 20.2 % (11.6-14.8) H Platelet Count 171 K/UL (150-450) Mean Platelet Volume 6.8 FL (6.5-10.1) Neutrophils (%) (Auto) 53.1 % (45.0-75.0) Lymphocytes (%) (Auto) 27.2 % (20.0-45.0) Monocytes (%) (Auto) 15.3 % (1.0-10.0) H Eosinophils (%) (Auto) 3.0 % (0.0-3.0) Basophils (%) (Auto) 1.4 % (0.0-2.0) Sodium Level 135 MMOL/L (136-145) L Potassium Level 5.7 MMOL/L (3.5-5.1) H Chloride Level 103 MMOL/L (98-107) Carbon Dioxide Level 20 MMOL/L (21-32) L Anion Gap 12 mmol/L (5-15) Blood Urea Nitrogen 73 mg/dL (7-18) H Creatinine 6.9 MG/DL (0.55-1.30) H Estimat Glomerular Filtration Rate 8.2 mL/min (>60) Glucose Level 118 MG/DL (74-106) H Calcium Level 8.7 MG/DL (8.5-10.1) Pro-B-Type Natriuretic Peptide > 80668 pg/mL (0-125) H Zo Olivas MD Jun 06, 2018 17:29
--- NOTE | 2018-06-06 18:06 | General Progress Note ---
Assessment/Plan Assessment/Plan chf effusion cardiomyopathy EF 15% COPD renal failure dialysis dependent htn psyche disorder dialysis diiuresis cards fup 'pulmonary hygiene consider thoracentesis Subjective Allergies: Coded Allergies: PENICILLINS (Verified Allergy, Unknown, 06/04/18) Subjective breathing better no cp Objective Last 24 Hour Vital Signs Date Time Temp Pulse Resp B/P (MAP) Pulse Ox O2 Delivery O2 Flow Rate FiO2 06/06/18 16:00 97.3 87 18 130/89 (103) 95 06/06/18 16:00 94 06/06/18 13:31 86 20 98 Nasal Cannula 3.0 32 06/06/18 13:24 86 18 96 Nasal Cannula 3.0 32 06/06/18 12:00 97.0 83 20 126/83 (97) 98 06/06/18 12:00 79 06/06/18 09:00 Nasal Cannula 2.0 Nasal Cannula 2.0 06/06/18 08:00 91 06/06/18 08:00 97.1 91 22 121/82 (95) 100 06/06/18 07:58 84 18 98 Nasal Cannula 3.0 32 06/06/18 07:49 Nasal Cannula 3.0 32 06/06/18 07:49 82 20 97 Nasal Cannula 3.0 32 06/06/18 07:49 98 Nasal Cannula 3.0 32 06/06/18 04:00 97.8 87 20 113/83 (93) 98 06/06/18 04:00 86 06/06/18 00:00 85 06/06/18 00:00 98.8 94 20 128/93 (105) 96 06/05/18 23:56 87 18 98 Nasal Cannula 3.0 32 06/05/18 23:46 86 20 95 Nasal Cannula 3.0 32 06/05/18 21:00 Nasal Cannula 2.0 06/05/18 20:00 98.1 85 22 125/83 (97) 97 06/05/18 20:00 87 06/05/18 19:30 86 20 98 Nasal Cannula 3.0 32 06/05/18 19:20 Nasal Cannula 3.0 32 06/05/18 19:20 83 18 96 Nasal Cannula 3.0 32 06/05/18 19:20 96 Nasal Cannula 3.0 32 Intake and Output 06/05/18 06/06/18 18:59 06:59 Intake Total 400 ml Output Total 300 ml Balance 100 ml Intake Oral 400 ml Output Urine Total 300 ml # Voids 5 # Bowel Movements 1 1 Laboratory Tests 06/06/18 06:15: White Blood Count 5.0, Red Blood Count 3.91L, Hemoglobin 12.3L, Hematocrit 39.2L , Mean Corpuscular Volume 100H, Mean Corpuscular Hemoglobin 31.4H, Mean Corpuscular Hemoglobin Concent 31.3L, Red Cell Distribution Width 20.2H, Platelet Count 171, Mean Platelet Volume 6.8, Neutrophils (%) (Auto) 53.1, Lymphocytes (%) (Auto) 27.2, Monocytes (%) (Auto) 15.3H, Eosinophils (%) (Auto) 3.0, Basophils (%) (Auto) 1.4, Sodium Level 135L, Potassium Level 5.7H, Chloride Level 103, Carbon Dioxide Level 20L, Anion Gap 12, Blood Urea Nitrogen 73H, Creatinine 6.9H, Estimat Glomerular Filtration Rate 8.2, Glucose Level 118H , Calcium Level 8.7, Pro-B-Type Natriuretic Peptide > 70849H Height (Feet): 6 Height (Inches): 1.00 Weight (Pounds): 192 General Appearance: WD/WN, no apparent distress Cardiovascular: normal rate Respiratory/Chest: decreased breath sounds Abdomen: soft Objective 1 plus edema bilaterally Luís Baumann MD Jun 06, 2018 18:06
[2018-06-06 20:00] VITALS: BP 136/79
[2018-06-06] MEDS: Valproic Acid 250mg/5ml Liquid ORAL SCH (20:53)
[2018-06-07] VITALS: BP 131/72
[2018-06-07] MEDS: Albuterol/Ipratropium 3ml neb HHN SCH ×4 (01:36→18:55)
[2018-06-07 04:00] VITALS: BP 127/82
[2018-06-07] MEDS: NovoLOG Insulin Flexpen SUBQ SCH ×4 (06:28→20:34)
[2018-06-07 08:00] VITALS: BP 117/81
[2018-06-07 08:15] LABS: BASOPHILS % (AUTO) 0.6 % (0.0-2.0); EOSINOPHILS % (AUTO) 0.2 % (0.0-3.0); HEMATOCRIT 40.2 % (42.0-52.0); HEMOGLOBIN 12.7 G/DL (14.2-18.0); MEAN CORPUSCULAR VOLUME 101 FL (80-99); MONOCYTES % (AUTO) 11.1 % (1.0-10.0); NEUTROPHILS % (AUTO) 73.2 % (45.0-75.0); PLATELET COUNT 167 K/UL (150-450); RED BLOOD COUNT 3.99 M/UL (4.70-6.10); RED CELL DISTRIBUTION WIDTH 20.3 % (11.6-14.8); WHITE BLOOD COUNT 5.4 K/UL (4.8-10.8)
[2018-06-07 09:04] LABS: ANION GAP 15 mmol/L (5-15); BLOOD UREA NITROGEN 97 mg/dL (7-18); CALCIUM 8.9 MG/DL (8.5-10.1); CARBON DIOXIDE 17 MMOL/L (21-32); CHLORIDE 103 MMOL/L (98-107); CREATININE 8.2 MG/DL (0.55-1.30); PHOSPHORUS 6.1 MG/DL (2.5-4.9); SODIUM 135 MMOL/L (136-145)
[2018-06-07 09:09] LABS: POTASSIUM 6.1 MMOL/L (3.5-5.1)
--- NOTE | 2018-06-07 10:42 | Pulmonology Progress Note ---
Assessment/Plan Problems: (1) Psychiatric disorder (2) ESRD on hemodialysis (3) CHF (congestive heart failure) (4) Acute decompensated heart failure (5) COPD exacerbation Assessment/Plan ASSESSMENT: The patient is a 63-year-old male, former smoker with underlying psychiatric disorder, chronic obstructive pulmonary disease, end-stage renal disease on dialysis, hypertension, presenting with shortness of breath in the setting of chronic obstructive pulmonary disease exacerbation and volume overload, plus or minus an antecedent viral URI/ tracheobronchitis. PROBLEM LIST: 1. Chronic obstructive pulmonary disease with acute exacerbation. 2. Viral URI versus tracheobronchitis. 3. Hypoxemia. 4. End-stage renal disease on dialysis. 5. CHF with severe systolic dysfunction (EF 15%) and ADHF 6. Small bilateral pleural effusion secondary to above. 7. Prior smoker. 8. History of psychiatric disorder. TREATMENT PLAN: 1. Optimize pulmonary hygiene/mobilize as tolerated. 2. Titrate down FiO2 to keep saturations greater than 90%. 3. Qdllq-qpe-bddrs and p.r.n. bronchodilators. 4. Prednisone 60 mg p.o. daily (D3). 5. PO azithromycin (D3) 6. F/U cardiology recs, medical management, ? plan for ischemia evaluation, ? life vest - NO PULMONARY CONTRAINDICATION TO B-AGGIE USE FOR HF 7. Monitor volumes and renal function, Bumex and dialysis per Renal 8. Monitor effusions. CXR in am 9. Aspiration precautions. 10. DVT prophylaxis with heparin subcutaneous. 11. The patient should have outpatient pulmonary evaluation to optimize inhaler regimen. Subjective Allergies: Coded Allergies: PENICILLINS (Verified Allergy, Unknown, 06/04/18) Subjective Seen during HD, getting 3L off AFVSS, stable on 3L Less cough + SOB no CP no F/C Objective Last 24 Hour Vital Signs Date Time Temp Pulse Resp B/P (MAP) Pulse Ox O2 Delivery O2 Flow Rate FiO2 06/07/18 09:00 Nasal Cannula 2.0 Nasal Cannula 2.0 06/07/18 08:00 96.0 79 22 117/81 (93) 99 06/07/18 08:00 77 06/07/18 07:34 97 Nasal Cannula 3.0 32 06/07/18 07:34 Nasal Cannula 3.0 32 06/07/18 07:15 79 18 98 Nasal Cannula 3.0 32 06/07/18 07:11 74 20 98 Nasal Cannula 3.0 32 06/07/18 04:00 79 06/07/18 04:00 97.1 79 22 127/82 (97) 98 06/07/18 01:47 80 20 99 Nasal Cannula 3.0 32 06/07/18 01:36 72 18 98 Nasal Cannula 3.0 32 06/07/18 00:00 76 06/07/18 00:00 98.1 85 18 131/72 (91) 97 81 06/06/18 21:00 Nasal Cannula 2.0 Nasal Cannula 2.0 06/06/18 20:00 84 06/06/18 20:00 97.3 95 19 136/79 (98) 95 06/06/18 19:45 86 20 97 Nasal Cannula 3.0 32 06/06/18 19:31 87 18 96 Nasal Cannula 3.0 32 06/06/18 19:31 96 Nasal Cannula 3.0 32 06/06/18 19:31 Nasal Cannula 3.0 32 06/06/18 16:00 97.3 87 18 130/89 (103) 95 06/06/18 16:00 94 06/06/18 13:31 86 20 98 Nasal Cannula 3.0 32 06/06/18 13:24 86 18 96 Nasal Cannula 3.0 32 06/06/18 12:00 97.0 83 20 126/83 (97) 98 06/06/18 12:00 79 Intake and Output 06/06/18 06/07/18 19:00 07:00 Intake Total 680 ml 240 ml Output Total 1100 ml 800 ml Balance -420 ml -560 ml Intake Oral 680 ml 240 ml Output Urine Total 1100 ml 800 ml # Voids 8 5 # Bowel Movements 1 General Appearance: no acute distress, cachetic HEENT: normocephalic, atraumatic, anicteric, mucous membranes moist Respiratory/Chest: chest wall non-tender, lungs clear, normal breath sounds - but decreased @ bases, other - R CS tunneled cath Cardiovascular: normal peripheral pulses, normal rate, regular rhythm Abdomen: normal bowel sounds, soft, non tender, no organomegaly, non distended , no mass Extremities: no cyanosis, no clubbing, no edema Microbiology Date/Time Source Procedure Growth Status 06/04/18 17:22 Rectum VRE Culture - Final Enterococcus Faecalis - Vre Complete 06/04/18 17:22 Rectum - Final NO CARBAPENEM-RESISTANT ENTEROBACTERI... Complete Laboratory Tests 06/07/18 06:30: White Blood Count 5.4, Red Blood Count 3.99L, Hemoglobin 12.7L, Hematocrit 40.2L , Mean Corpuscular Volume 101H, Mean Corpuscular Hemoglobin 31.8H, Mean Corpuscular Hemoglobin Concent 31.6L, Red Cell Distribution Width 20.3H, Platelet Count 167, Mean Platelet Volume 7.3, Neutrophils (%) (Auto) 73.2, Lymphocytes (%) (Auto) 15.0L, Monocytes (%) (Auto) 11.1H, Eosinophils (%) (Auto ) 0.2, Basophils (%) (Auto) 0.6, Sodium Level 135L, Potassium Level 6.1*H, Chloride Level 103, Carbon Dioxide Level 17L, Anion Gap 15, Blood Urea Nitrogen 97H, Creatinine 8.2H, Estimat Glomerular Filtration Rate 6.7, Glucose Level 101 , Calcium Level 8.9, Phosphorus Level 6.1H Current Medications Medications (Trade) Dose Ordered Sig/Cynthia Route PRN Reason Start Time Stop Time Status Last Admin Dose Admin Acetaminophen (Tylenol) 500 mg Q6H PRN ORAL Mild Pain/Temp > 100.5 06/05/18 13:30 07/05/18 13:29 06/05/18 13:52 Al Hydroxide/Mg Hydroxide (Mylanta) 30 ml BID PRN ORAL Dyspepsia 06/04/18 23:45 07/04/18 23:44 Albumin Human 100 ml @ 200 mls/hr PRN PRN IV sbp<90 during hd 06/06/18 17:13 06/08/18 23:59 Albuterol/ Ipratropium (Albuterol/ Ipratropium) 3 ml Q4H PRN HHN Shortness of Breath 06/04/18 23:45 06/09/18 23:44 06/05/18 15:38 Albuterol/ Ipratropium (Albuterol/ Ipratropium) 3 ml Q6HRT HHN 06/05/18 19:00 06/10/18 18:59 06/07/18 07:34 Alprazolam (Xanax) 0.25 mg BID PRN ORAL For Anxiety 06/04/18 23:45 12/6/18 23:44 06/06/18 17:48 Azithromycin (Zithromax) 250 mg DAILY ORAL 06/06/18 09:00 06/13/18 08:59 06/06/18 09:42 Dextrose (Dextrose 50%) 25 ml Q30M PRN IV Hypoglycemia 06/04/18 23:45 07/04/18 23:44 Dextrose (Dextrose 50%) 50 ml Q30M PRN IV Hypoglycemia 06/04/18 23:45 07/04/18 23:44 Docusate Sodium (Colace) 100 mg TWICE A DAY ORAL 06/05/18 09:00 07/05/18 08:59 06/06/18 17:42 Ferrous Sulfate (Feosol) 325 mg THREE TIMES A DAY ORAL 06/05/18 18:00 07/05/18 17:59 06/06/18 17:42 Folic Acid (Folate) 1 mg DAILY ORAL 06/06/18 09:00 07/06/18 08:59 06/06/18 09:42 Heparin Sodium (Porcine) (Heparin 5000 units/ml) 5,000 units EVERY 12 HOURS SUBQ 06/05/18 09:00 07/05/18 08:59 06/06/18 20:56 Heparin Sodium (Porcine) (Heparin Sod 1000 units/ml 10ml) 2,000 unit ONCE PRN IV DIALYSIS 06/06/18 17:13 06/08/18 23:59 Insulin Aspart (NovoLOG) BEFORE MEALS AND HS SUBQ 06/05/18 06:30 07/05/18 06:29 06/06/18 17:45 Lorazepam (Ativan) 0.5 mg HSPRN PRN ORAL For anxiety causing insomnia 06/05/18 13:30 06/12/18 13:29 06/05/18 20:24 Pantoprazole (Protonix) 40 mg DAILY ORAL 06/05/18 09:00 07/05/18 08:59 06/06/18 09:42 Prednisone (predniSONE) 60 mg DAILY ORAL 06/06/18 09:00 07/06/18 08:59 06/06/18 09:42 Risperidone (RisperDAL) 0.5 mg DAILYPRN PRN ORAL Agitation 06/05/18 13:30 07/05/18 13:29 Sevelamer Carbonate (Renvela) 800 mg THREE TIMES A DAY ORAL 06/05/18 18:00 07/05/18 17:59 06/06/18 17:42 Valproic Acid (Depakene) 750 mg EVERY 12 HOURS ORAL 06/06/18 21:00 07/05/18 20:59 06/06/18 20:53 Vitamin D (Vitamin D) 5,000 intlu DAILY ORAL 06/06/18 09:00 07/06/18 08:59 06/06/18 10:35 Conrado Cantrell MD Jun 07, 2018 10:41
--- NOTE | 2018-06-07 11:43 | Nephrology Progress Note ---
Assessment/Plan Problem List: (1) ESRD on hemodialysis (2) COPD exacerbation (3) CHF (congestive heart failure) (4) Acute bronchitis Plan HD again on friday bronchodilators steroids abxs ischemic evaluation ? Brooks inhibitors are not contraindicated in ESRD pts Discussed with HD RN----> 3 lit removed Subjective Subjective feels better just had HD Objective Objective Last 24 Hour Vital Signs Date Time Temp Pulse Resp B/P (MAP) Pulse Ox O2 Delivery O2 Flow Rate FiO2 06/07/18 09:00 Nasal Cannula 2.0 Nasal Cannula 2.0 06/07/18 08:00 96.0 79 22 117/81 (93) 99 06/07/18 08:00 77 06/07/18 07:34 97 Nasal Cannula 3.0 32 06/07/18 07:34 Nasal Cannula 3.0 32 06/07/18 07:15 79 18 98 Nasal Cannula 3.0 32 06/07/18 07:11 74 20 98 Nasal Cannula 3.0 32 06/07/18 04:00 79 06/07/18 04:00 97.1 79 22 127/82 (97) 98 06/07/18 01:47 80 20 99 Nasal Cannula 3.0 32 06/07/18 01:36 72 18 98 Nasal Cannula 3.0 32 06/07/18 00:00 76 06/07/18 00:00 98.1 85 18 131/72 (91) 97 81 06/06/18 21:00 Nasal Cannula 2.0 Nasal Cannula 2.0 06/06/18 20:00 84 06/06/18 20:00 97.3 95 19 136/79 (98) 95 06/06/18 19:45 86 20 97 Nasal Cannula 3.0 32 06/06/18 19:31 87 18 96 Nasal Cannula 3.0 32 06/06/18 19:31 96 Nasal Cannula 3.0 32 06/06/18 19:31 Nasal Cannula 3.0 32 06/06/18 16:00 97.3 87 18 130/89 (103) 95 06/06/18 16:00 94 06/06/18 13:31 86 20 98 Nasal Cannula 3.0 32 06/06/18 13:24 86 18 96 Nasal Cannula 3.0 32 06/06/18 12:00 97.0 83 20 126/83 (97) 98 06/06/18 12:00 79 Intake and Output 06/06/18 06/07/18 19:00 07:00 Intake Total 680 ml 240 ml Output Total 1100 ml 800 ml Balance -420 ml -560 ml Intake Oral 680 ml 240 ml Output Urine Total 1100 ml 800 ml # Voids 8 5 # Bowel Movements 1 Laboratory Tests 06/07/18 06:30: White Blood Count 5.4, Red Blood Count 3.99L, Hemoglobin 12.7L, Hematocrit 40.2L , Mean Corpuscular Volume 101H, Mean Corpuscular Hemoglobin 31.8H, Mean Corpuscular Hemoglobin Concent 31.6L, Red Cell Distribution Width 20.3H, Platelet Count 167, Mean Platelet Volume 7.3, Neutrophils (%) (Auto) 73.2, Lymphocytes (%) (Auto) 15.0L, Monocytes (%) (Auto) 11.1H, Eosinophils (%) (Auto ) 0.2, Basophils (%) (Auto) 0.6, Sodium Level 135L, Potassium Level 6.1*H, Chloride Level 103, Carbon Dioxide Level 17L, Anion Gap 15, Blood Urea Nitrogen 97H, Creatinine 8.2H, Estimat Glomerular Filtration Rate 6.7, Glucose Level 101 , Calcium Level 8.9, Phosphorus Level 6.1H Height (Feet): 6 Height (Inches): 1.00 Weight (Pounds): 195 Cardiovascular: normal rate Respiratory/Chest: lungs clear Extremities: trace edema Robert Lemons MD Jun 07, 2018 11:43
[2018-06-07] MEDS: Azithromycin 250mg tab ORAL SCH (11:54)
[2018-06-07] MEDS: Vitamin D 1000 IU Tab ORAL SCH (11:54)
[2018-06-07] MEDS: Valproic Acid 250mg/5ml Liquid ORAL SCH ×2 (11:55→20:41)
[2018-06-07] MEDS: Docusate 100mg cap ORAL SCH ×2 (11:55→17:38)
[2018-06-07] MEDS: Heparin 5000 units/ml inj SUBQ SCH ×2 (11:56→20:46)
[2018-06-07 12:00] VITALS: BP 133/63
[2018-06-07] MEDS: ALPRAZolam 0.25mg tab ORAL PRN ×2 (12:02→20:41)
--- NOTE | 2018-06-07 14:07 | Cardiology Progress Note ---
Assessment/Plan Assessment/Plan congestive heart failure, acute on chronic, with severe systolic LV dysfunction , plus COPD, smoker in the past he is on dialysis probably will need ischemia work up not a candidate for ACEI due to ESRD and not for b-blockers due ot severe COPD will d/w Dr Mcneill if non invasive ischemic work up should be ordered ( stress nuclear) Subjective Subjective the patient is still short of breath, but less than yesterday has less cough still has orthopnea very weak Objective Last 24 Hour Vital Signs Date Time Temp Pulse Resp B/P (MAP) Pulse Ox O2 Delivery O2 Flow Rate FiO2 06/07/18 12:54 73 16 98 Nasal Cannula 3.0 32 06/07/18 12:47 82 18 97 Nasal Cannula 3.0 32 06/07/18 12:00 96.0 68 22 133/63 (86) 94 06/07/18 12:00 78 06/07/18 09:00 Nasal Cannula 2.0 Nasal Cannula 2.0 06/07/18 08:00 96.0 79 22 117/81 (93) 99 06/07/18 08:00 77 06/07/18 07:34 97 Nasal Cannula 3.0 32 06/07/18 07:34 Nasal Cannula 3.0 32 06/07/18 07:15 79 18 98 Nasal Cannula 3.0 32 06/07/18 07:11 74 20 98 Nasal Cannula 3.0 32 06/07/18 04:00 79 06/07/18 04:00 97.1 79 22 127/82 (97) 98 06/07/18 01:47 80 20 99 Nasal Cannula 3.0 32 06/07/18 01:36 72 18 98 Nasal Cannula 3.0 32 06/07/18 00:00 76 06/07/18 00:00 98.1 85 18 131/72 (91) 97 81 06/06/18 21:00 Nasal Cannula 2.0 Nasal Cannula 2.0 06/06/18 20:00 84 06/06/18 20:00 97.3 95 19 136/79 (98) 95 06/06/18 19:45 86 20 97 Nasal Cannula 3.0 32 06/06/18 19:31 87 18 96 Nasal Cannula 3.0 32 06/06/18 19:31 96 Nasal Cannula 3.0 32 06/06/18 19:31 Nasal Cannula 3.0 32 06/06/18 16:00 97.3 87 18 130/89 (103) 95 06/06/18 16:00 94 General Appearance: other - ill appearing EENT: PERRL/EOMI Neck: JVD Rhythm: NSR Cardiovascular: regular rhythm Respiratory/Chest: crackles/rales, rhonchi - bilaterally Abdomen: soft Intake and Output 06/06/18 06/07/18 19:00 07:00 Intake Total 680 ml 240 ml Output Total 1100 ml 800 ml Balance -420 ml -560 ml Intake Oral 680 ml 240 ml Output Urine Total 1100 ml 800 ml # Voids 8 5 # Bowel Movements 1 Laboratory Tests Test 06/07/18 06:30 White Blood Count 5.4 K/UL (4.8-10.8) Red Blood Count 3.99 M/UL (4.70-6.10) L Hemoglobin 12.7 G/DL (14.2-18.0) L Hematocrit 40.2 % (42.0-52.0) L Mean Corpuscular Volume 101 FL (80-99) H Mean Corpuscular Hemoglobin 31.8 PG (27.0-31.0) H Mean Corpuscular Hemoglobin Concent 31.6 G/DL (32.0-36.0) L Red Cell Distribution Width 20.3 % (11.6-14.8) H Platelet Count 167 K/UL (150-450) Mean Platelet Volume 7.3 FL (6.5-10.1) Neutrophils (%) (Auto) 73.2 % (45.0-75.0) Lymphocytes (%) (Auto) 15.0 % (20.0-45.0) L Monocytes (%) (Auto) 11.1 % (1.0-10.0) H Eosinophils (%) (Auto) 0.2 % (0.0-3.0) Basophils (%) (Auto) 0.6 % (0.0-2.0) Sodium Level 135 MMOL/L (136-145) L Potassium Level 6.1 MMOL/L (3.5-5.1) *H Chloride Level 103 MMOL/L (98-107) Carbon Dioxide Level 17 MMOL/L (21-32) L Anion Gap 15 mmol/L (5-15) Blood Urea Nitrogen 97 mg/dL (7-18) H Creatinine 8.2 MG/DL (0.55-1.30) H Estimat Glomerular Filtration Rate 6.7 mL/min (>60) Glucose Level 101 MG/DL (74-106) Calcium Level 8.9 MG/DL (8.5-10.1) Phosphorus Level 6.1 MG/DL (2.5-4.9) H Microbiology Date/Time Source Procedure Growth Status 06/04/18 17:22 Nasal Nares MRSA Culture - Final NO METHICILLIN RESISTANT STAPH AUREUS... Complete 06/04/18 17:22 Rectum VRE Culture - Final Enterococcus Faecalis - Vre Complete 06/04/18 17:22 Rectum - Final NO CARBAPENEM-RESISTANT ENTEROBACTERI... Complete Zo Olivas MD Jun 07, 2018 14:07
[2018-06-07] MEDS ORDERED: Tubing IV Secondary IV ONE (15:15)
[2018-06-07 16:00] VITALS: BP 130/81
[2018-06-07 20:00] VITALS: BP 127/78
--- NOTE | 2018-06-07 20:52 | General Progress Note ---
Assessment/Plan Assessment/Plan chf effusion cardiomyopathy EF 15% COPD renal failure dialysis dependent htn psyche disorder dialysis diiuresis cards fup 'pulmonary hygiene dvt and ulcer prophylaxis Subjective Allergies: Coded Allergies: PENICILLINS (Verified Allergy, Unknown, 06/04/18) Subjective breathing better no chest paingetting dialysis Objective Last 24 Hour Vital Signs Date Time Temp Pulse Resp B/P (MAP) Pulse Ox O2 Delivery O2 Flow Rate FiO2 06/07/18 19:11 96 Nasal Cannula 3.0 32 06/07/18 19:11 Nasal Cannula 3.0 32 06/07/18 19:11 74 18 97 Nasal Cannula 3.0 32 06/07/18 18:55 91 18 95 Nasal Cannula 3.0 32 06/07/18 16:00 97.6 94 20 130/81 (97) 99 06/07/18 16:00 96 06/07/18 12:54 73 16 98 Nasal Cannula 3.0 32 06/07/18 12:47 82 18 97 Nasal Cannula 3.0 32 06/07/18 12:00 96.0 68 22 133/63 (86) 94 06/07/18 12:00 78 06/07/18 09:00 Nasal Cannula 2.0 Nasal Cannula 2.0 06/07/18 08:00 96.0 79 22 117/81 (93) 99 06/07/18 08:00 77 06/07/18 07:34 97 Nasal Cannula 3.0 32 06/07/18 07:34 Nasal Cannula 3.0 32 06/07/18 07:15 79 18 98 Nasal Cannula 3.0 32 06/07/18 07:11 74 20 98 Nasal Cannula 3.0 32 06/07/18 04:00 79 06/07/18 04:00 97.1 79 22 127/82 (97) 98 06/07/18 01:47 80 20 99 Nasal Cannula 3.0 32 06/07/18 01:36 72 18 98 Nasal Cannula 3.0 32 06/07/18 00:00 76 06/07/18 00:00 98.1 85 18 131/72 (91) 97 81 06/06/18 21:00 Nasal Cannula 2.0 Nasal Cannula 2.0 Intake and Output 06/06/18 06/07/18 18:59 06:59 Intake Total 680 ml 240 ml Output Total 1100 ml 800 ml Balance -420 ml -560 ml Intake Oral 680 ml 240 ml Output Urine Total 1100 ml 800 ml # Voids 8 5 # Bowel Movements 1 Laboratory Tests 06/07/18 06:30: White Blood Count 5.4, Red Blood Count 3.99L, Hemoglobin 12.7L, Hematocrit 40.2L , Mean Corpuscular Volume 101H, Mean Corpuscular Hemoglobin 31.8H, Mean Corpuscular Hemoglobin Concent 31.6L, Red Cell Distribution Width 20.3H, Platelet Count 167, Mean Platelet Volume 7.3, Neutrophils (%) (Auto) 73.2, Lymphocytes (%) (Auto) 15.0L, Monocytes (%) (Auto) 11.1H, Eosinophils (%) (Auto ) 0.2, Basophils (%) (Auto) 0.6, Sodium Level 135L, Potassium Level 6.1*H, Chloride Level 103, Carbon Dioxide Level 17L, Anion Gap 15, Blood Urea Nitrogen 97H, Creatinine 8.2H, Estimat Glomerular Filtration Rate 6.7, Glucose Level 101 , Calcium Level 8.9, Phosphorus Level 6.1H Height (Feet): 6 Height (Inches): 1.00 Weight (Pounds): 195 General Appearance: WD/WN, no apparent distress Neck: supple Cardiovascular: normal rate Respiratory/Chest: lungs clear Abdomen: soft Objective 1 plus edema bilaterally Luís Baumann MD Jun 07, 2018 20:52
[2018-06-07] MEDS: Lexiscan 0.4mg/5ml syringe IV SCH (21:30)
[2018-06-08] VITALS: BP 131/81
[2018-06-08] MEDS: Albuterol/Ipratropium 3ml neb HHN SCH ×4 (01:18→19:38)
[2018-06-08 04:00] VITALS: BP 112/64
[2018-06-08] MEDS: NovoLOG Insulin Flexpen SUBQ SCH ×4 (06:29→21:00)
[2018-06-08 08:00] VITALS: BP 120/72
[2018-06-08] MEDS: Azithromycin 250mg tab ORAL SCH (09:04)
[2018-06-08] MEDS: Docusate 100mg cap ORAL SCH ×2 (09:04→17:03)
[2018-06-08] MEDS: Valproic Acid 250mg/5ml Liquid ORAL SCH ×2 (09:04→20:57)
[2018-06-08] MEDS: Heparin 5000 units/ml inj SUBQ SCH ×2 (09:06→21:01)
--- NOTE | 2018-06-08 09:29 | Pulmonology Progress Note ---
Assessment/Plan Problems: (1) Psychiatric disorder (2) ESRD on hemodialysis (3) CHF (congestive heart failure) (4) Acute decompensated heart failure (5) COPD exacerbation Assessment/Plan ASSESSMENT: The patient is a 63-year-old male, former smoker with underlying psychiatric disorder, chronic obstructive pulmonary disease, end-stage renal disease on dialysis, hypertension, presenting with shortness of breath in the setting of chronic obstructive pulmonary disease exacerbation and volume overload, plus or minus an antecedent viral URI/ tracheobronchitis. PROBLEM LIST: 1. Chronic obstructive pulmonary disease with acute exacerbation. 2. Viral URI versus tracheobronchitis. 3. Hypoxemia. 4. End-stage renal disease on dialysis. 5. CHF with severe systolic dysfunction (EF 15%) and ADHF 6. Small bilateral pleural effusion secondary to above. 7. Prior smoker. 8. History of psychiatric disorder. TREATMENT PLAN: 1. Optimize pulmonary hygiene/mobilize as tolerated. 2. Titrate down FiO2 to keep saturations greater than 90%. 3. Tpgkr-peo-eqily and p.r.n. bronchodilators. 4. Prednisone 60 mg p.o. daily (D4). 5. PO azithromycin (D4) 6. F/U cardiology recs, medical management, plan for NM stress test if patient amenable, ? life vest - NO PULMONARY CONTRAINDICATION TO B-AGGIE USE FOR HF 7. Monitor volumes and renal function, Bumex and dialysis per Renal 8. Monitor effusions. CXR pending 9. Aspiration precautions. 10. DVT prophylaxis with heparin subcutaneous. 11. The patient should have outpatient pulmonary evaluation to optimize inhaler regimen. Subjective Allergies: Coded Allergies: PENICILLINS (Verified Allergy, Unknown, 06/04/18) Subjective IO inaccurate, fluid removed during HD not reported AFVSS, stable on 3L Less cough + SOB no CP no F/C Planned for NM stress test but declining Objective Last 24 Hour Vital Signs Date Time Temp Pulse Resp B/P (MAP) Pulse Ox O2 Delivery O2 Flow Rate FiO2 06/08/18 07:53 82 18 99 Nasal Cannula 3.0 32 06/08/18 07:41 80 18 99 Nasal Cannula 3.0 32 06/08/18 07:40 Nasal Cannula 3.0 32 06/08/18 07:40 99 Nasal Cannula 3.0 32 06/08/18 04:00 98.4 95 20 112/64 (80) 96 12/3/18 04:00 84 06/08/18 01:35 87 18 98 Nasal Cannula 3.0 32 06/08/18 01:18 87 18 97 Nasal Cannula 3.0 32 06/08/18 00:00 87 06/08/18 00:00 97.7 87 22 131/81 (98) 96 06/07/18 21:00 Nasal Cannula 2.0 Nasal Cannula 2.0 06/07/18 20:00 97.5 104 20 127/78 (94) 98 06/07/18 20:00 104 06/07/18 19:11 96 Nasal Cannula 3.0 32 06/07/18 19:11 Nasal Cannula 3.0 32 06/07/18 19:11 74 18 97 Nasal Cannula 3.0 32 06/07/18 18:55 91 18 95 Nasal Cannula 3.0 32 06/07/18 16:00 97.6 94 20 130/81 (97) 99 06/07/18 16:00 96 06/07/18 12:54 73 16 98 Nasal Cannula 3.0 32 06/07/18 12:47 82 18 97 Nasal Cannula 3.0 32 06/07/18 12:00 96.0 68 22 133/63 (86) 94 06/07/18 12:00 78 Intake and Output 06/07/18 06/08/18 19:00 07:00 Intake Total 240 ml 400 ml Output Total 800 ml Balance -560 ml 400 ml Intake Oral 240 ml 400 ml Output Urine Total 800 ml # Voids 5 # Bowel Movements 1 General Appearance: no acute distress, cachetic HEENT: normocephalic, atraumatic, anicteric, mucous membranes moist Respiratory/Chest: chest wall non-tender, lungs clear - but decreased @ bases, normal breath sounds, no respiratory distress Cardiovascular: normal peripheral pulses, normal rate, regular rhythm Abdomen: normal bowel sounds, soft, non tender, no organomegaly, non distended , no mass Extremities: no cyanosis, no clubbing, no edema Laboratory Tests 06/07/18 23:05: Troponin I 0.031 Current Medications Medications (Trade) Dose Ordered Sig/Cynthia Route PRN Reason Start Time Stop Time Status Last Admin Dose Admin Acetaminophen (Tylenol) 500 mg Q6H PRN ORAL Mild Pain/Temp > 100.5 06/05/18 13:30 07/05/18 13:29 06/05/18 13:52 Al Hydroxide/Mg Hydroxide (Mylanta) 30 ml BID PRN ORAL Dyspepsia 06/04/18 23:45 07/04/18 23:44 Albumin Human 100 ml @ 200 mls/hr PRN PRN IV sbp<90 during hd 06/06/18 17:13 06/08/18 23:59 Albuterol/ Ipratropium (Albuterol/ Ipratropium) 3 ml Q4H PRN HHN Shortness of Breath 06/04/18 23:45 06/09/18 23:44 06/05/18 15:38 Albuterol/ Ipratropium (Albuterol/ Ipratropium) 3 ml Q6HRT HHN 06/05/18 19:00 06/10/18 18:59 06/08/18 01:18 Alprazolam (Xanax) 0.25 mg BID PRN ORAL For Anxiety 06/04/18 23:45 06/11/18 23:44 06/07/18 20:41 Azithromycin (Zithromax) 250 mg DAILY ORAL 06/06/18 09:00 06/13/18 08:59 06/08/18 09:04 Dextrose (Dextrose 50%) 25 ml Q30M PRN IV Hypoglycemia 06/04/18 23:45 07/04/18 23:44 Dextrose (Dextrose 50%) 50 ml Q30M PRN IV Hypoglycemia 06/04/18 23:45 07/04/18 23:44 Docusate Sodium (Colace) 100 mg TWICE A DAY ORAL 06/05/18 09:00 07/05/18 08:59 06/08/18 09:04 Ferrous Sulfate (Feosol) 325 mg THREE TIMES A DAY ORAL 06/05/18 18:00 07/05/18 17:59 06/08/18 09:04 Folic Acid (Folate) 1 mg DAILY ORAL 06/06/18 09:00 07/06/18 08:59 06/08/18 09:03 Heparin Sodium (Porcine) (Heparin 5000 units/ml) 5,000 units EVERY 12 HOURS SUBQ 06/05/18 09:00 07/05/18 08:59 06/08/18 09:06 Heparin Sodium (Porcine) (Heparin Sod 1000 units/ml 10ml) 2,000 unit ONCE PRN IV DIALYSIS 06/06/18 17:13 06/08/18 23:59 Insulin Aspart (NovoLOG) BEFORE MEALS AND HS SUBQ 06/05/18 06:30 07/05/18 06:29 06/06/18 17:45 Lorazepam (Ativan) 0.5 mg HSPRN PRN ORAL For anxiety causing insomnia 06/05/18 13:30 06/12/18 13:29 06/05/18 20:24 Pantoprazole (Protonix) 40 mg DAILY ORAL 06/05/18 09:00 07/05/18 08:59 06/08/18 09:04 Prednisone (predniSONE) 60 mg DAILY ORAL 06/06/18 09:00 07/06/18 08:59 06/08/18 09:04 Regadenoson (Lexiscan) 0.4 mg ONCE IV 06/07/18 21:30 06/08/18 23:59 Risperidone (RisperDAL) 0.5 mg DAILYPRN PRN ORAL Agitation 06/05/18 13:30 07/05/18 13:29 Sevelamer Carbonate (Renvela) 800 mg THREE TIMES A DAY ORAL 06/05/18 18:00 07/05/18 17:59 06/08/18 09:04 Valproic Acid (Depakene) 750 mg EVERY 12 HOURS ORAL 06/06/18 21:00 07/05/18 20:59 06/08/18 09:04 Vitamin D (Vitamin D) 5,000 intlu DAILY ORAL 06/06/18 09:00 07/06/18 08:59 06/07/18 11:54 Conrado Cantrell MD Jun 08, 2018 09:29
[2018-06-08] MEDS: ALPRAZolam 0.25mg tab ORAL PRN ×2 (09:48→21:01)
[2018-06-08] MEDS: Vitamin D 1000 IU Tab ORAL SCH (09:48)
--- NOTE | 2018-06-08 11:32 | Diagnostic Imaging Report ---
Indication: Shortness of breath Technique: One view of the chest Comparison: 06/04/2018 Findings: Bilateral pleural effusions persist, may be slightly greater on the right. Right lung volume loss persists. Right jugular tunneled dialysis catheter is again demonstrated. Cardiomegaly persists. Borderline interstitial congestive changes appear slightly improved Impression: Over 4 days, suggestion of increasing left pleural effusion, unchanged right pleural effusion. Improved minimal interstitial congestion Cardiomegaly
--- NOTE | 2018-06-08 11:55 | Nephrology Progress Note ---
Assessment/Plan Problem List: (1) ESRD on hemodialysis (2) COPD exacerbation (3) CHF (congestive heart failure) (4) Acute bronchitis Plan HD in AM bronchodilators steroids abxs ischemic evaluation ? Add benazepril Subjective Subjective feels better but still SOB Objective Objective Last 24 Hour Vital Signs Date Time Temp Pulse Resp B/P (MAP) Pulse Ox O2 Delivery O2 Flow Rate FiO2 06/08/18 09:00 Nasal Cannula 2.0 Nasal Cannula 2.0 06/08/18 08:00 97.9 78 24 120/72 (88) 96 06/08/18 07:53 82 18 99 Nasal Cannula 3.0 32 06/08/18 07:41 80 18 99 Nasal Cannula 3.0 32 06/08/18 07:40 Nasal Cannula 3.0 32 06/08/18 07:40 99 Nasal Cannula 3.0 32 06/08/18 04:00 98.4 95 20 112/64 (80) 96 06/08/18 04:00 84 06/08/18 01:35 87 18 98 Nasal Cannula 3.0 32 06/08/18 01:18 87 18 97 Nasal Cannula 3.0 32 06/08/18 00:00 87 06/08/18 00:00 97.7 87 22 131/81 (98) 96 06/07/18 21:00 Nasal Cannula 2.0 Nasal Cannula 2.0 06/07/18 20:00 97.5 104 20 127/78 (94) 98 06/07/18 20:00 104 06/07/18 19:11 96 Nasal Cannula 3.0 32 06/07/18 19:11 Nasal Cannula 3.0 32 06/07/18 19:11 74 18 97 Nasal Cannula 3.0 32 06/07/18 18:55 91 18 95 Nasal Cannula 3.0 32 06/07/18 16:00 97.6 94 20 130/81 (97) 99 06/07/18 16:00 96 06/07/18 12:54 73 16 98 Nasal Cannula 3.0 32 06/07/18 12:47 82 18 97 Nasal Cannula 3.0 32 06/07/18 12:00 96.0 68 22 133/63 (86) 94 06/07/18 12:00 78 Intake and Output 06/07/18 06/08/18 19:00 07:00 Intake Total 240 ml 400 ml Output Total 800 ml Balance -560 ml 400 ml Intake Oral 240 ml 400 ml Output Urine Total 800 ml # Voids 5 # Bowel Movements 1 Laboratory Tests 06/07/18 23:05: Troponin I 0.031 Height (Feet): 6 Height (Inches): 1.00 Weight (Pounds): 197 Cardiovascular: normal rate Respiratory/Chest: lungs clear, rhonchi - bilaterally Extremities: other - no edema Robert Lemons MD Jun 08, 2018 11:55
[2018-06-08] MEDS ORDERED: Heparin Sod 1000 units/ml 10ml IV PRN (11:59)
[2018-06-08 12:00] VITALS: BP 126/77
[2018-06-08] MEDS ORDERED: Heparin 5000 units/ml inj INJ PRN (12:00)
[2018-06-08] MEDS: Benazepril 10mg tab ORAL SCH (12:22)
--- NOTE | 2018-06-08 13:09 | Diagnostic Imaging Report ---
APPROVED REPORT CPT Code: 31654 Present Symptoms Comments: BILATERAL LEGS PAIN. BILATERAL: Imaging reveals a patent deep venous system bilaterally. There is no evidence of thrombus within the femoral, popliteal or tibial segments. The greater saphenous veins are also within normal limits. Doppler indicates normal spontaneous flow within these segments.
[2018-06-08 16:00] VITALS: BP 113/67
--- NOTE | 2018-06-08 19:30 | Cardiology Progress Note ---
Assessment/Plan Assessment/Plan 1. Congestive heart failure. 2. Chronic obstructive pulmonary disease. 3. End-stage renal disease. On hemodialysis. 4. Home oxygen therapy. 5. Probable dilated cardiomyopathy. 6. History of hypertension. 7. Sig MR now on acei refused lexiscan perfusion imaging will start on coreg 3.125 mg bid dialysis fluid adn na restriction in future if he agrees needs ischemia eval Subjective Cardiovascular: Denies: chest pain, lightheadedness, palpitations Respiratory: Denies: shortness of breath - better Gastrointestinal/Abdominal: Denies: abdominal pain Genitourinary: Denies: burning Objective Last 24 Hour Vital Signs Date Time Temp Pulse Resp B/P (MAP) Pulse Ox O2 Delivery O2 Flow Rate FiO2 06/08/18 16:00 97.5 81 21 113/67 (82) 94 06/08/18 16:00 89 06/08/18 14:31 80 18 99 Nasal Cannula 3.0 32 06/08/18 14:20 93 18 96 Nasal Cannula 3.0 32 06/08/18 12:22 126/77 06/08/18 12:00 97.5 92 21 126/77 (93) 96 06/08/18 12:00 83 06/08/18 09:00 Nasal Cannula 2.0 Nasal Cannula 2.0 06/08/18 08:00 97.9 78 24 120/72 (88) 96 06/08/18 08:00 82 06/08/18 07:53 82 18 99 Nasal Cannula 3.0 32 06/08/18 07:41 80 18 99 Nasal Cannula 3.0 32 06/08/18 07:40 Nasal Cannula 3.0 32 06/08/18 07:40 99 Nasal Cannula 3.0 32 06/08/18 04:00 98.4 95 20 112/64 (80) 96 06/08/18 04:00 84 06/08/18 01:35 87 18 98 Nasal Cannula 3.0 32 06/08/18 01:18 87 18 97 Nasal Cannula 3.0 32 06/08/18 00:00 87 06/08/18 00:00 97.7 87 22 131/81 (98) 96 06/07/18 21:00 Nasal Cannula 2.0 Nasal Cannula 2.0 06/07/18 20:00 97.5 104 20 127/78 (94) 98 06/07/18 20:00 104 General Appearance: no apparent distress, alert Neck: supple Cardiovascular: regular rhythm Respiratory/Chest: lungs clear Abdomen: normal bowel sounds, non tender, soft Extremities: non-tender, no swelling Intake and Output 06/07/18 06/08/18 19:00 07:00 Intake Total 240 ml 400 ml Output Total 800 ml Balance -560 ml 400 ml Intake Oral 240 ml 400 ml Output Urine Total 800 ml # Voids 5 # Bowel Movements 1 Laboratory Tests Test 06/07/18 23:05 Troponin I 0.031 ng/mL (0.000-0.056) Baldo Mcneill MD Jun 08, 2018 19:30
[2018-06-08 20:00] VITALS: BP 120/80
[2018-06-08] MEDS: Lexiscan 0.4mg/5ml syringe IV SCH (21:30)
--- NOTE | 2018-06-08 23:35 | General Progress Note ---
Assessment/Plan Assessment/Plan chf effusion cardiomyopathy EF 15% COPD renal failure dialysis dependent htn psyche disorder dialysis diiuresis cards fup stress test today consider lifepack on discharge 'pulmonary hygiene on abx on steroids dvt and ulcer prophylaxis Subjective Allergies: Coded Allergies: PENICILLINS (Verified Allergy, Unknown, 06/04/18) Subjective breathing better no chest pain to get stress test today Objective Last 24 Hour Vital Signs Date Time Temp Pulse Resp B/P (MAP) Pulse Ox O2 Delivery O2 Flow Rate FiO2 06/08/18 20:57 80 113/67 06/08/18 20:00 80 06/08/18 19:45 95 20 99 Nasal Cannula 3.0 32 06/08/18 19:40 94 20 98 Nasal Cannula 3.0 32 06/08/18 19:38 Nasal Cannula 3.0 32 06/08/18 19:34 98 Nasal Cannula 3.0 32 06/08/18 16:00 97.5 81 21 113/67 (82) 94 06/08/18 16:00 89 06/08/18 14:31 80 18 99 Nasal Cannula 3.0 32 06/08/18 14:20 93 18 96 Nasal Cannula 3.0 32 06/08/18 12:22 126/77 06/08/18 12:00 97.5 92 21 126/77 (93) 96 06/08/18 12:00 83 06/08/18 09:00 Nasal Cannula 2.0 Nasal Cannula 2.0 06/08/18 08:00 97.9 78 24 120/72 (88) 96 06/08/18 08:00 82 06/08/18 07:53 82 18 99 Nasal Cannula 3.0 32 06/08/18 07:41 80 18 99 Nasal Cannula 3.0 32 06/08/18 07:40 Nasal Cannula 3.0 32 06/08/18 07:40 99 Nasal Cannula 3.0 32 06/08/18 04:00 98.4 95 20 112/64 (80) 96 06/08/18 04:00 84 06/08/18 01:35 87 18 98 Nasal Cannula 3.0 32 06/08/18 01:18 87 18 97 Nasal Cannula 3.0 32 06/08/18 00:00 87 06/08/18 00:00 97.7 87 22 131/81 (98) 96 Intake and Output 06/07/18 06/08/18 18:59 06:59 Intake Total 240 ml 400 ml Output Total 800 ml Balance -560 ml 400 ml Intake Oral 240 ml 400 ml Output Urine Total 800 ml # Voids 5 # Bowel Movements 1 Height (Feet): 6 Height (Inches): 1.00 Weight (Pounds): 197 General Appearance: WD/WN, no apparent distress Cardiovascular: normal rate Respiratory/Chest: lungs clear Objective 1 plus edema bilaterally Luís Baumann MD Jun 08, 2018 23:35
[2018-06-09] VITALS: BP 125/80
[2018-06-09] MEDS: Albuterol/Ipratropium 3ml neb HHN SCH ×4 (00:56→19:38)
[2018-06-09 04:00] VITALS: BP 113/74
[2018-06-09] MEDS: NovoLOG Insulin Flexpen SUBQ SCH ×4 (06:02→20:53)
[2018-06-09 07:06] LABS: BASOPHILS % (AUTO) 0.4 % (0.0-2.0); HEMATOCRIT 37.9 % (42.0-52.0); HEMOGLOBIN 12.2 G/DL (14.2-18.0); MEAN CORPUSCULAR VOLUME 100 FL (80-99); MONOCYTES % (AUTO) 7.6 % (1.0-10.0); PLATELET COUNT 195 K/UL (150-450); RED BLOOD COUNT 3.77 M/UL (4.70-6.10); RED CELL DISTRIBUTION WIDTH 19.9 % (11.6-14.8); WHITE BLOOD COUNT 6.4 K/UL (4.8-10.8)
[2018-06-09 07:09] LABS: ANION GAP 10 mmol/L (5-15); BLOOD UREA NITROGEN 104 mg/dL (7-18); CALCIUM 8.3 MG/DL (8.5-10.1); CARBON DIOXIDE 21 MMOL/L (21-32); CHLORIDE 103 MMOL/L (98-107); CREATININE 7.1 MG/DL (0.55-1.30); PHOSPHORUS 6.8 MG/DL (2.5-4.9); SODIUM 135 MMOL/L (136-145)
[2018-06-09 07:16] LABS: POTASSIUM 6.4 MMOL/L (3.5-5.1)
[2018-06-09 08:00] VITALS: BP 113/69
[2018-06-09] MEDS: Heparin 5000 units/ml inj SUBQ SCH ×2 (09:00→21:05)
[2018-06-09] MEDS: Benazepril 10mg tab ORAL SCH (09:00)
[2018-06-09] MEDS: Azithromycin 250mg tab ORAL SCH (09:09)
[2018-06-09] MEDS: Docusate 100mg cap ORAL SCH ×2 (09:09→17:24)
[2018-06-09] MEDS: ALPRAZolam 0.25mg tab ORAL PRN ×2 (09:10→21:00)
[2018-06-09] MEDS: Vitamin D 1000 IU Tab ORAL SCH (09:11)
[2018-06-09] MEDS: Valproic Acid 250mg/5ml Liquid ORAL SCH ×2 (09:14→20:58)
--- NOTE | 2018-06-09 11:25 | Consultation ---
Consult Note Consult Note Cardiac EP Full consult dictated #[id number] Oliva Etienne MD Jun 09, 2018 11:25
[2018-06-09 12:00] VITALS: BP 118/88
--- NOTE | 2018-06-09 14:26 | Nephrology Progress Note ---
Assessment/Plan Problem List: (1) ESRD on hemodialysis (2) COPD exacerbation (3) CHF (congestive heart failure) (4) Acute bronchitis Assessment hyperkalemia Plan HD today bronchodilators steroids abxs Discussed with Dr Mcneill. refused stress test. Discussed with WILLIAM low K diet Subjective Subjective feels better Objective Objective Last 24 Hour Vital Signs Date Time Temp Pulse Resp B/P (MAP) Pulse Ox O2 Delivery O2 Flow Rate FiO2 06/09/18 13:01 69 18 99 Nasal Cannula 3.0 32 06/09/18 12:48 73 18 95 Nasal Cannula 3.0 32 06/09/18 12:00 97.3 74 18 118/88 (98) 99 06/09/18 12:00 68 06/09/18 09:16 65 113/69 06/09/18 09:00 113/69 06/09/18 09:00 Nasal Cannula 2.0 Nasal Cannula 2.0 06/09/18 08:00 97.6 65 20 113/69 (84) 94 06/09/18 08:00 73 06/09/18 06:57 Nasal Cannula 06/09/18 06:57 Nasal Cannula 06/09/18 06:56 98 Nasal Cannula 3.0 32 06/09/18 06:56 Nasal Cannula 3.0 32 06/09/18 04:00 98.1 74 20 113/74 (87) 99 06/09/18 04:00 79 06/09/18 01:03 77 20 99 Nasal Cannula 3.0 32 06/09/18 00:55 76 20 97 Nasal Cannula 3.0 32 06/09/18 00:00 73 06/09/18 00:00 97.6 76 20 125/80 (95) 98 06/08/18 21:00 Nasal Cannula 2.0 Nasal Cannula 2.0 06/08/18 20:57 80 113/67 06/08/18 20:00 97.5 82 22 120/80 (93) 96 06/08/18 20:00 80 06/08/18 19:45 95 20 99 Nasal Cannula 3.0 32 06/08/18 19:40 94 20 98 Nasal Cannula 3.0 32 06/08/18 19:38 Nasal Cannula 3.0 32 06/08/18 19:34 98 Nasal Cannula 3.0 32 06/08/18 16:00 97.5 81 21 113/67 (82) 94 12/3/18 16:00 89 06/08/18 14:31 80 18 99 Nasal Cannula 3.0 32 Intake and Output 06/08/18 06/09/18 19:00 07:00 Intake Total 400 ml Output Total 750 ml Balance -750 ml 400 ml Intake Oral 400 ml Output Urine Total 750 ml # Voids 3 # Bowel Movements 1 Laboratory Tests 06/09/18 05:20: White Blood Count 6.4, Red Blood Count 3.77L, Hemoglobin 12.2L, Hematocrit 37.9L , Mean Corpuscular Volume 100H, Mean Corpuscular Hemoglobin 32.3H, Mean Corpuscular Hemoglobin Concent 32.2, Red Cell Distribution Width 19.9H, Platelet Count 195, Mean Platelet Volume 6.7, Neutrophils (%) (Auto) 78.0H, Lymphocytes (%) (Auto) 14.0L, Monocytes (%) (Auto) 7.6, Eosinophils (%) (Auto) 0.0, Basophils (%) (Auto) 0.4, Sodium Level 135L, Potassium Level 6.4*H, Chloride Level 103, Carbon Dioxide Level 21, Anion Gap 10, Blood Urea Nitrogen 104H, Creatinine 7.1H, Estimat Glomerular Filtration Rate 7.9, Glucose Level 89 , Calcium Level 8.3L, Phosphorus Level 6.8H Height (Feet): 6 Height (Inches): 1.00 Weight (Pounds): 199 Cardiovascular: normal rate Respiratory/Chest: other - coarse BSs Robert Lemons MD Jun 09, 2018 14:26
--- NOTE | 2018-06-09 14:55 | Pulmonology Progress Note ---
Assessment/Plan Problems: (1) Psychiatric disorder (2) ESRD on hemodialysis (3) CHF (congestive heart failure) (4) Acute decompensated heart failure (5) COPD exacerbation Assessment/Plan ASSESSMENT: The patient is a 63-year-old male, former smoker with underlying psychiatric disorder, chronic obstructive pulmonary disease, end-stage renal disease on dialysis, hypertension, presenting with shortness of breath in the setting of chronic obstructive pulmonary disease exacerbation and volume overload, plus or minus an antecedent viral URI/ tracheobronchitis. PROBLEM LIST: 1. Chronic obstructive pulmonary disease with acute exacerbation. 2. Viral URI versus tracheobronchitis. 3. Hypoxemia. 4. End-stage renal disease on dialysis. 5. CHF with severe systolic dysfunction (EF 15%) and ADHF 6. Small bilateral pleural effusion secondary to above. 7. Prior smoker. 8. History of psychiatric disorder. TREATMENT PLAN: 1. Optimize pulmonary hygiene/mobilize as tolerated. 2. Titrate down FiO2 to keep saturations greater than 90%. 3. [id number] and p.r.n. bronchodilators. 4. Complete Prednisone 60 mg p.o. daily (D5). 5. Complete PO azithromycin (D5) 6. F/U cardiology recs, medical management, declines NM stress test if patient amenable, ? life vest - NO PULMONARY CONTRAINDICATION TO B-AGGIE USE FOR HF 7. Monitor volumes and renal function, Bumex and dialysis per Renal 8. Monitor effusions 9. Aspiration precautions. 10. DVT prophylaxis with heparin subcutaneous. 11. The patient should have outpatient pulmonary evaluation to optimize inhaler regimen. Subjective Allergies: Coded Allergies: PENICILLINS (Verified Allergy, Unknown, 06/04/18) Subjective IO inaccurate, awaiting HD, refused stress test AFVSS, stable on 3L Less cough + SOB no CP no F/C Objective Last 24 Hour Vital Signs Date Time Temp Pulse Resp B/P (MAP) Pulse Ox O2 Delivery O2 Flow Rate FiO2 06/09/18 13:01 69 18 99 Nasal Cannula 3.0 32 06/09/18 12:48 73 18 95 Nasal Cannula 3.0 32 06/09/18 12:00 97.3 74 18 118/88 (98) 99 06/09/18 12:00 68 06/09/18 09:16 65 113/69 06/09/18 09:00 113/69 06/09/18 09:00 Nasal Cannula 2.0 Nasal Cannula 2.0 06/09/18 08:00 97.6 65 20 113/69 (84) 94 06/09/18 08:00 73 06/09/18 06:57 Nasal Cannula 06/09/18 06:57 Nasal Cannula 06/09/18 06:56 98 Nasal Cannula 3.0 32 06/09/18 06:56 Nasal Cannula 3.0 32 06/09/18 04:00 98.1 74 20 113/74 (87) 99 06/09/18 04:00 79 06/09/18 01:03 77 20 99 Nasal Cannula 3.0 32 06/09/18 00:55 76 20 97 Nasal Cannula 3.0 32 06/09/18 00:00 73 06/09/18 00:00 97.6 76 20 125/80 (95) 98 06/08/18 21:00 Nasal Cannula 2.0 Nasal Cannula 2.0 06/08/18 20:57 80 113/67 06/08/18 20:00 97.5 82 22 120/80 (93) 96 06/08/18 20:00 80 06/08/18 19:45 95 20 99 Nasal Cannula 3.0 32 06/08/18 19:40 94 20 98 Nasal Cannula 3.0 32 06/08/18 19:38 Nasal Cannula 3.0 32 06/08/18 19:34 98 Nasal Cannula 3.0 32 06/08/18 16:00 97.5 81 21 113/67 (82) 94 06/08/18 16:00 89 Intake and Output 06/08/18 06/09/18 19:00 07:00 Intake Total 400 ml Output Total 750 ml Balance -750 ml 400 ml Intake Oral 400 ml Output Urine Total 750 ml # Voids 3 # Bowel Movements 1 General Appearance: WD/WN, no acute distress HEENT: normocephalic, atraumatic, anicteric, mucous membranes moist Respiratory/Chest: chest wall non-tender, lungs clear, normal breath sounds, no respiratory distress, no accessory muscle use Cardiovascular: normal peripheral pulses, normal rate, regular rhythm Abdomen: normal bowel sounds, soft, non tender, no organomegaly, non distended , no mass Extremities: no cyanosis, no clubbing, no edema Laboratory Tests 06/09/18 05:20: White Blood Count 6.4, Red Blood Count 3.77L, Hemoglobin 12.2L, Hematocrit 37.9L , Mean Corpuscular Volume 100H, Mean Corpuscular Hemoglobin 32.3H, Mean Corpuscular Hemoglobin Concent 32.2, Red Cell Distribution Width 19.9H, Platelet Count 195, Mean Platelet Volume 6.7, Neutrophils (%) (Auto) 78.0H, Lymphocytes (%) (Auto) 14.0L, Monocytes (%) (Auto) 7.6, Eosinophils (%) (Auto) 0.0, Basophils (%) (Auto) 0.4, Sodium Level 135L, Potassium Level 6.4*H, Chloride Level 103, Carbon Dioxide Level 21, Anion Gap 10, Blood Urea Nitrogen 104H, Creatinine 7.1H, Estimat Glomerular Filtration Rate 7.9, Glucose Level 89 , Calcium Level 8.3L, Phosphorus Level 6.8H Current Medications Medications (Trade) Dose Ordered Sig/Cynthia Route PRN Reason Start Time Stop Time Status Last Admin Dose Admin Acetaminophen (Tylenol) 500 mg Q6H PRN ORAL Mild Pain/Temp > 100.5 06/05/18 13:30 07/05/18 13:29 06/05/18 13:52 Al Hydroxide/Mg Hydroxide (Mylanta) 30 ml BID PRN ORAL Dyspepsia 06/04/18 23:45 07/04/18 23:44 Albuterol/ Ipratropium (Albuterol/ Ipratropium) 3 ml Q4H PRN HHN Shortness of Breath 06/04/18 23:45 06/09/18 23:44 06/05/18 15:38 Albuterol/ Ipratropium (Albuterol/ Ipratropium) 3 ml Q6HRT HHN 06/05/18 19:00 06/10/18 18:59 06/09/18 12:48 Alprazolam (Xanax) 0.25 mg BID PRN ORAL For Anxiety 06/04/18 23:45 06/11/18 23:44 06/09/18 09:10 Azithromycin (Zithromax) 250 mg DAILY ORAL 06/06/18 09:00 06/13/18 08:59 06/09/18 09:09 Benazepril HCl (Lotensin) 10 mg DAILY ORAL 06/08/18 11:58 07/08/18 11:57 06/08/18 12:22 Carvedilol (Coreg) 3.125 mg EVERY 12 HOURS ORAL 06/08/18 21:00 07/08/18 20:59 06/09/18 09:16 Dextrose (Dextrose 50%) 25 ml Q30M PRN IV Hypoglycemia 06/04/18 23:45 07/04/18 23:44 Dextrose (Dextrose 50%) 50 ml Q30M PRN IV Hypoglycemia 06/04/18 23:45 07/04/18 23:44 Docusate Sodium (Colace) 100 mg TWICE A DAY ORAL 06/05/18 09:00 07/05/18 08:59 06/09/18 09:09 Ferrous Sulfate (Feosol) 325 mg THREE TIMES A DAY ORAL 06/05/18 18:00 07/05/18 17:59 06/09/18 14:19 Folic Acid (Folate) 1 mg DAILY ORAL 06/06/18 09:00 07/06/18 08:59 06/09/18 09:09 Heparin Sodium (Porcine) (Heparin 5000 units/ml) 5,000 units EVERY 12 HOURS SUBQ 06/05/18 09:00 07/05/18 08:59 06/08/18 21:01 Heparin Sodium (Porcine) (Heparin 5000 units/ml) 5,000 units POSTHD PRN INJ POST HD 06/08/18 12:00 06/09/18 23:59 Heparin Sodium (Porcine) (Heparin Sod 1000 units/ml 10ml) 2,000 unit ONCE PRN IV DIALYSIS 06/08/18 11:59 06/09/18 23:59 Insulin Aspart (NovoLOG) BEFORE MEALS AND HS SUBQ 06/05/18 06:30 07/05/18 06:29 06/06/18 17:45 Lorazepam (Ativan) 0.5 mg HSPRN PRN ORAL For anxiety causing insomnia 06/05/18 13:30 06/12/18 13:29 06/05/18 20:24 Pantoprazole (Protonix) 40 mg DAILY ORAL 06/05/18 09:00 07/05/18 08:59 06/09/18 09:11 Prednisone (predniSONE) 60 mg DAILY ORAL 06/06/18 09:00 07/06/18 08:59 06/09/18 09:10 Risperidone (RisperDAL) 0.5 mg DAILYPRN PRN ORAL Agitation 06/05/18 13:30 07/05/18 13:29 Sevelamer Carbonate (Renvela) 800 mg THREE TIMES A DAY ORAL 06/05/18 18:00 07/05/18 17:59 06/09/18 09:12 Sodium Chloride 1,000 ml @ 500 mls/hr Q2H PRN IVLG sbp<90 during hd 06/08/18 11:59 06/10/18 23:59 Valproic Acid (Depakene) 750 mg EVERY 12 HOURS ORAL 06/06/18 21:00 07/05/18 20:59 06/09/18 09:14 Vitamin D (Vitamin D) 5,000 intlu DAILY ORAL 06/06/18 09:00 07/06/18 08:59 06/09/18 09:11 Conrado Cantrell MD Jun 09, 2018 14:55
[2018-06-09 16:00] VITALS: BP 110/77
[2018-06-09 20:00] VITALS: BP 130/82
--- NOTE | 2018-06-09 20:06 | Cardiology Progress Note ---
Assessment/Plan Assessment/Plan 1. Congestive heart failure. 2. Chronic obstructive pulmonary disease. 3. End-stage renal disease. On hemodialysis. 4. Home oxygen therapy. 5. Probable dilated cardiomyopathy. 6. History of hypertension. 7. Sig MR now on acei refused lexiscan perfusion imaging yest i again discussed with him to day still declines on coreg 3.125 mg bid dialysis fluid adn na restriction in future if he agrees needs ischemia eval as outpt i asked dr james to see re icd he refused with her and still decliens with me i have explaind to help him survive sudden cardiac but he adamnently declines Subjective Cardiovascular: Denies: chest pain Respiratory: Reports: shortness of breath Gastrointestinal/Abdominal: Denies: abdominal pain Genitourinary: Denies: burning Objective Last 24 Hour Vital Signs Date Time Temp Pulse Resp B/P (MAP) Pulse Ox O2 Delivery O2 Flow Rate FiO2 06/09/18 19:45 77 20 99 Nasal Cannula 3.0 32 06/09/18 19:37 Nasal Cannula 3.0 32 06/09/18 19:37 77 20 97 Nasal Cannula 3.0 32 06/09/18 19:36 97 Nasal Cannula 3.0 32 06/09/18 16:00 97.6 61 20 110/77 (88) 98 06/09/18 16:00 64 06/09/18 13:01 69 18 99 Nasal Cannula 3.0 32 06/09/18 12:48 73 18 95 Nasal Cannula 3.0 32 06/09/18 12:00 97.3 74 18 118/88 (98) 99 06/09/18 12:00 68 06/09/18 09:16 65 113/69 06/09/18 09:00 113/69 06/09/18 09:00 Nasal Cannula 2.0 Nasal Cannula 2.0 06/09/18 08:00 97.6 65 20 113/69 (84) 94 06/09/18 08:00 73 06/09/18 06:57 Nasal Cannula 06/09/18 06:57 Nasal Cannula 06/09/18 06:56 98 Nasal Cannula 3.0 32 06/09/18 06:56 Nasal Cannula 3.0 32 06/09/18 04:00 98.1 74 20 113/74 (87) 99 06/09/18 04:00 79 06/09/18 01:03 77 20 99 Nasal Cannula 3.0 32 06/09/18 00:55 76 20 97 Nasal Cannula 3.0 32 06/09/18 00:00 73 06/09/18 00:00 97.6 76 20 125/80 (95) 98 06/08/18 21:00 Nasal Cannula 2.0 Nasal Cannula 2.0 06/08/18 20:57 80 113/67 General Appearance: no apparent distress, alert Neck: supple Cardiovascular: normal rate Respiratory/Chest: decreased breath sounds Abdomen: normal bowel sounds, non tender, soft Extremities: no swelling Intake and Output 06/08/18 06/09/18 19:00 07:00 Intake Total 400 ml Output Total 750 ml Balance -750 ml 400 ml Intake Oral 400 ml Output Urine Total 750 ml # Voids 3 # Bowel Movements 1 Laboratory Tests Test 06/09/18 05:20 White Blood Count 6.4 K/UL (4.8-10.8) Red Blood Count 3.77 M/UL (4.70-6.10) L Hemoglobin 12.2 G/DL (14.2-18.0) L Hematocrit 37.9 % (42.0-52.0) L Mean Corpuscular Volume 100 FL (80-99) H Mean Corpuscular Hemoglobin 32.3 PG (27.0-31.0) H Mean Corpuscular Hemoglobin Concent 32.2 G/DL (32.0-36.0) Red Cell Distribution Width 19.9 % (11.6-14.8) H Platelet Count 195 K/UL (150-450) Mean Platelet Volume 6.7 FL (6.5-10.1) Neutrophils (%) (Auto) 78.0 % (45.0-75.0) H Lymphocytes (%) (Auto) 14.0 % (20.0-45.0) L Monocytes (%) (Auto) 7.6 % (1.0-10.0) Eosinophils (%) (Auto) 0.0 % (0.0-3.0) Basophils (%) (Auto) 0.4 % (0.0-2.0) Sodium Level 135 MMOL/L (136-145) L Potassium Level 6.4 MMOL/L (3.5-5.1) *H Chloride Level 103 MMOL/L (98-107) Carbon Dioxide Level 21 MMOL/L (21-32) Anion Gap 10 mmol/L (5-15) Blood Urea Nitrogen 104 mg/dL (7-18) H Creatinine 7.1 MG/DL (0.55-1.30) H Estimat Glomerular Filtration Rate 7.9 mL/min (>60) Glucose Level 89 MG/DL (74-106) Calcium Level 8.3 MG/DL (8.5-10.1) L Phosphorus Level 6.8 MG/DL (2.5-4.9) H Baldo Mcneill MD Jun 09, 2018 20:06
--- NOTE | 2018-06-09 23:17 | General Progress Note ---
Assessment/Plan Assessment/Plan chf effusion cardiomyopathy EF 15% COPD renal failure dialysis dependent htn psyche disorder dialysis diiuresis cards fup patient refused stress test rulout ischemic cuae of CM consider EP evaluation for defibrillator consider lifepack on discharge 'pulmonary hygiene on abx on steroids dvt and ulcer prophylaxis Subjective Allergies: Coded Allergies: PENICILLINS (Verified Allergy, Unknown, 06/04/18) Subjective breathing better no chest pain patient refused stress test Objective Last 24 Hour Vital Signs Date Time Temp Pulse Resp B/P (MAP) Pulse Ox O2 Delivery O2 Flow Rate FiO2 06/09/18 21:00 Nasal Cannula 2.0 Nasal Cannula 2.0 06/09/18 20:58 75 130/82 06/09/18 20:00 75 06/09/18 20:00 97.3 75 19 130/82 (98) 97 06/09/18 19:45 77 20 99 Nasal Cannula 3.0 32 06/09/18 19:37 Nasal Cannula 3.0 32 06/09/18 19:37 77 20 97 Nasal Cannula 3.0 32 06/09/18 19:36 97 Nasal Cannula 3.0 32 06/09/18 16:00 97.6 61 20 110/77 (88) 98 06/09/18 16:00 64 06/09/18 13:01 69 18 99 Nasal Cannula 3.0 32 06/09/18 12:48 73 18 95 Nasal Cannula 3.0 32 06/09/18 12:00 97.3 74 18 118/88 (98) 99 06/09/18 12:00 68 06/09/18 09:16 65 113/69 06/09/18 09:00 113/69 06/09/18 09:00 Nasal Cannula 2.0 Nasal Cannula 2.0 06/09/18 08:00 97.6 65 20 113/69 (84) 94 06/09/18 08:00 73 06/09/18 06:57 Nasal Cannula 06/09/18 06:57 Nasal Cannula 06/09/18 06:56 98 Nasal Cannula 3.0 32 06/09/18 06:56 Nasal Cannula 3.0 32 06/09/18 04:00 98.1 74 20 113/74 (87) 99 06/09/18 04:00 79 06/09/18 01:03 77 20 99 Nasal Cannula 3.0 32 06/09/18 00:55 76 20 97 Nasal Cannula 3.0 32 06/09/18 00:00 73 06/09/18 00:00 97.6 76 20 125/80 (95) 98 Intake and Output 06/08/18 06/09/18 19:00 07:00 Intake Total 400 ml Output Total 750 ml Balance -750 ml 400 ml Intake Oral 400 ml Output Urine Total 750 ml # Voids 3 # Bowel Movements 1 Laboratory Tests 06/09/18 05:20: White Blood Count 6.4, Red Blood Count 3.77L, Hemoglobin 12.2L, Hematocrit 37.9L , Mean Corpuscular Volume 100H, Mean Corpuscular Hemoglobin 32.3H, Mean Corpuscular Hemoglobin Concent 32.2, Red Cell Distribution Width 19.9H, Platelet Count 195, Mean Platelet Volume 6.7, Neutrophils (%) (Auto) 78.0H, Lymphocytes (%) (Auto) 14.0L, Monocytes (%) (Auto) 7.6, Eosinophils (%) (Auto) 0.0, Basophils (%) (Auto) 0.4, Sodium Level 135L, Potassium Level 6.4*H, Chloride Level 103, Carbon Dioxide Level 21, Anion Gap 10, Blood Urea Nitrogen 104H, Creatinine 7.1H, Estimat Glomerular Filtration Rate 7.9, Glucose Level 89 , Calcium Level 8.3L, Phosphorus Level 6.8H Height (Feet): 6 Height (Inches): 1.00 Weight (Pounds): 199 General Appearance: WD/WN, no apparent distress Neck: normal inspection Cardiovascular: normal rate Respiratory/Chest: lungs clear Abdomen: soft Objective 1 plus edema bilaterally Luís Baumann MD Jun 09, 2018 23:17
[2018-06-10] VITALS (7 sets, daily range): BP systolic 111–178; BP diastolic 64–78
[2018-06-10] MEDS: Albuterol/Ipratropium 3ml neb HHN SCH ×3 (01:00→13:03)
--- NOTE | 2018-06-10 02:45 | Consultation ---
DATE OF CONSULTATION: 06/09/2018 CARDIAC ELECTROPHYSIOLOGY CONSULT CONSULTING PHYSICIAN: Oliva Etienne M.D. REQUESTING PHYSICIAN: Baldo Mcneill M.D. REASON FOR CONSULTATION: Consideration for ICD placement. HISTORY OF PRESENT ILLNESS: The patient is a 63-year-old white male with a history of longstanding hypertension, COPD, and end-stage renal disease, on hemodialysis for about the past year who was admitted on 06/04/2018 with increasing shortness of breath. He reports about a one week, history of shortness of breath with mild activity, two- to three-pillow orthopnea, and sharp left-sided chest pain. He noted minimal peripheral edema. He had no PND. He presented to the emergency room and was found to be in congestive heart failure with chest x-ray showing pulmonary edema. ProBNP greater than 35,000. Troponin was minimally elevated at 0.07 and echo showed severe left ventricular enlargement, generalized hypokinesis, and an EF of 15%. There was also moderate right ventricular enlargement. Doppler showed severe mitral regurgitation. He was admitted and he is being treated with medical therapy as well as dialysis. Cardiac electrophysiology evaluation was requested for consideration for ICD placement. PAST MEDICAL HISTORY: As noted above. History of COPD; history of end-stage renal disease, on hemodialysis for about the past year; and history of hypertension. CURRENT MEDICATIONS: Carvedilol 3.125 mg every 12 hours, subcutaneous heparin 5000 units post hemodialysis, benazepril 10 mg daily, valproic acid 750 mg q.12 h., folic acid 1 mg daily, vitamin D 5000 units daily, prednisone 60 mg daily, azithromycin 250 mg daily, albuterol and ipratropium nebulizer q.6 h. p.r.n., iron sulfate 325 mg three times daily, Renvela 800 mg three times daily, Tylenol p.r.n., Risperdal 0.5 mg daily p.r.n., Protonix 40 mg daily, Colace 100 mg twice daily, and insulin sliding scale. ALLERGIES: Penicillin. SOCIAL HISTORY: The patient has a one-half pack per day smoking history for about 40 years, but stopped smoking one year ago. He has no history of alcohol or drug abuse. FAMILY HISTORY: Negative for premature coronary artery disease. PHYSICAL EXAMINATION: VITAL SIGNS: Blood pressure is 113/69, pulse 73 and regular, respirations 20, and afebrile. GENERAL: Alert and well-developed white male, in no acute distress. HEENT: Normocephalic and atraumatic. Pupils are equal, round, and reactive to light. Sclerae anicteric. Oral mucosa are moist. Edentulous. NECK: Supple. There is no jugular venous distention. Carotid pulses are 2+ bilaterally without bruits. LUNGS: Minimal basilar crackles, left greater than right. HEART: Regular rate and rhythm. S1 and S2 with a 2/6 holosystolic murmur at the apex. No S3. PMI is laterally displaced. ABDOMEN: Soft, nontender, and nondistended. Liver edge palpable at the costal margin. EXTREMITIES: No cyanosis, clubbing, or edema. Lower extremity pulses are 2+ bilaterally. DIAGNOSTIC DATA: EKG shows sinus rhythm, rate of 70 beats per minute, axis -45 degrees and left ventricular hypertrophy with nonspecific IVCD, QRS duration 120 milliseconds. LABORATORY DATA: Hemoglobin 12, hematocrit 37, white blood count 6400, and platelets 195,000. Potassium 6.4, sodium 135, chloride 103, bicarb 21, BUN 104, creatinine 7.1, and troponin 0.031. [place] [address]. Chest x-ray shows tunneled right jugular dialysis catheter; cardiomegaly; bilateral pleural effusions, right greater than left; and interstitial edema. ASSESSMENT AND RECOMMENDATIONS: The patient is a 63-year-old man with a history of hypertension, end-stage renal disease on hemodialysis for the past year, and history of chronic obstructive pulmonary disease, was admitted with decompensated systolic congestive heart failure. The duration and etiology of his cardiomyopathy is not known. He has been started on appropriate medical therapy with VINCE inhibitors and carvedilol. He will undergo fluid removal with dialysis. A stress nuclear study has been ordered to evaluate possible ischemia as cause of his cardiomyopathy, however, he is currently refusing testing. With regard to ICD placement, he may be a candidate for a biventricular ICD given the IVCD, however, he has a new diagnosis of cardiomyopathy, he would need a trial of optimal medical therapy for three months prior to considering ICD placement. I discussed defibrillator placement with him briefly and he currently would decline this intervention even if EF remains low after a trial of a guideline-directed medical therapy. I will discuss his situation further with you. Thank you for allowing me to participate in his care. Oliva Etienne M.D. DR: RENETTA JOB#: [id number] CC:
[2018-06-10] MEDS: NovoLOG Insulin Flexpen SUBQ SCH ×4 (06:10→21:00)
[2018-06-10] MEDS: Valproic Acid 250mg/5ml Liquid ORAL SCH ×2 (08:32→21:38)
[2018-06-10] MEDS: Vitamin D 1000 IU Tab ORAL SCH (08:32)
[2018-06-10] MEDS: ALPRAZolam 0.25mg tab ORAL PRN (08:33)
[2018-06-10] MEDS: Docusate 100mg cap ORAL SCH ×2 (08:33→17:47)
[2018-06-10] MEDS: Benazepril 10mg tab ORAL SCH (08:34)
[2018-06-10] MEDS: Heparin 5000 units/ml inj SUBQ SCH ×2 (08:42→21:39)
--- NOTE | 2018-06-10 11:24 | Nephrology Progress Note ---
Assessment/Plan Problem List: (1) ESRD on hemodialysis (2) COPD exacerbation (3) CHF (congestive heart failure) (4) Acute bronchitis Assessment hyperkalemia Plan Discussed with Dr Pastor STORM today Subjective Subjective feels better Objective Objective Last 24 Hour Vital Signs Date Time Temp Pulse Resp B/P (MAP) Pulse Ox O2 Delivery O2 Flow Rate FiO2 06/10/18 09:00 Nasal Cannula 2.0 Nasal Cannula 2.0 06/10/18 08:34 122/75 06/10/18 08:33 70 122/75 06/10/18 08:00 97.1 70 20 122/75 (91) 96 06/10/18 08:00 69 06/10/18 07:11 82 18 99 Nasal Cannula 3.0 32 06/10/18 07:10 97 Nasal Cannula 3.0 32 06/10/18 07:10 Nasal Cannula 3.0 32 06/10/18 07:04 84 20 97 Nasal Cannula 3.0 32 06/10/18 04:00 98.1 70 19 130/77 (94) 97 06/10/18 04:00 70 06/10/18 01:33 Nasal Cannula 3.0 32 06/10/18 01:32 Nasal Cannula 3.0 32 06/10/18 00:00 65 06/10/18 00:00 97.0 65 18 133/78 (96) 97 06/09/18 21:00 Nasal Cannula 2.0 Nasal Cannula 2.0 06/09/18 20:58 75 130/82 06/09/18 20:00 75 06/09/18 20:00 97.3 75 19 130/82 (98) 97 06/09/18 19:45 77 20 99 Nasal Cannula 3.0 32 06/09/18 19:37 Nasal Cannula 3.0 32 06/09/18 19:37 77 20 97 Nasal Cannula 3.0 32 06/09/18 19:36 97 Nasal Cannula 3.0 32 06/09/18 16:00 97.6 61 20 110/77 (88) 98 06/09/18 16:00 64 06/09/18 13:01 69 18 99 Nasal Cannula 3.0 32 06/09/18 12:48 73 18 95 Nasal Cannula 3.0 32 06/09/18 12:00 97.3 74 18 118/88 (98) 99 06/09/18 12:00 68 Intake and Output 06/09/18 06/10/18 19:00 07:00 Intake Total 420 ml 480 ml Output Total 250 ml 600 ml Balance 170 ml -120 ml Intake Oral 420 ml Other 480 ml Output Urine Total 250 ml 600 ml # Voids 1 # Bowel Movements 2 Height (Feet): 6 Height (Inches): 1.00 Weight (Pounds): 202 Cardiovascular: normal rate Respiratory/Chest: lungs clear Robert Lemons MD Jun 10, 2018 11:24
--- NOTE | 2018-06-10 12:21 | Pulmonology Progress Note ---
Assessment/Plan Problems: (1) Psychiatric disorder (2) ESRD on hemodialysis (3) CHF (congestive heart failure) (4) Acute decompensated heart failure (5) COPD exacerbation Assessment/Plan ASSESSMENT: The patient is a 63-year-old male, former smoker with underlying psychiatric disorder, chronic obstructive pulmonary disease, end-stage renal disease on dialysis, hypertension, presenting with shortness of breath in the setting of chronic obstructive pulmonary disease exacerbation and volume overload, plus or minus an antecedent viral URI/ tracheobronchitis. PROBLEM LIST: 1. Chronic obstructive pulmonary disease with acute exacerbation. 2. Viral URI versus tracheobronchitis. 3. Hypoxemia. 4. End-stage renal disease on dialysis. 5. CHF with severe systolic dysfunction (EF 15%) and ADHF 6. Small bilateral pleural effusion secondary to above. 7. Prior smoker. 8. History of psychiatric disorder. TREATMENT PLAN: 1. Optimize pulmonary hygiene/mobilize as tolerated. 2. Titrate down FiO2 to keep saturations greater than 90%. Patient desaturates on RA to 80%, need 2L O2 via NC to keep SaO2 @ 90% 3. Phqbl-eey-ophbv and p.r.n. bronchodilators. 4. S/P PRED x 5 days, off steroids 5. S/P AZITHRO x 5 days, off Abx 6. F/U cardiology recs, medical management, declines NM stress test, awaiting life vest - NO PULMONARY CONTRAINDICATION TO B-AGGIE USE FOR HF 7. Monitor volumes and renal function, Bumex and dialysis per Renal 8. Monitor effusions 9. Aspiration precautions. 10. DVT prophylaxis with heparin subcutaneous. 11. The patient should have outpatient pulmonary evaluation to optimize inhaler regimen. Subjective Allergies: Coded Allergies: PENICILLINS (Verified Allergy, Unknown, 06/04/18) Subjective IO inaccurate, S/P HD, refused stress test AFVSS, stable on 3L Less cough + SOB no CP no F/C Objective Last 24 Hour Vital Signs Date Time Temp Pulse Resp B/P (MAP) Pulse Ox O2 Delivery O2 Flow Rate FiO2 06/10/18 09:00 Nasal Cannula 2.0 Nasal Cannula 2.0 06/10/18 08:34 122/75 06/10/18 08:33 70 122/75 06/10/18 08:00 97.1 70 20 122/75 (91) 96 06/10/18 08:00 69 12/5/18 07:11 82 18 99 Nasal Cannula 3.0 32 06/10/18 07:10 97 Nasal Cannula 3.0 32 06/10/18 07:10 Nasal Cannula 3.0 32 06/10/18 07:04 84 20 97 Nasal Cannula 3.0 32 06/10/18 04:00 98.1 70 19 130/77 (94) 97 06/10/18 04:00 70 06/10/18 01:33 Nasal Cannula 3.0 32 06/10/18 01:32 Nasal Cannula 3.0 32 06/10/18 00:00 65 06/10/18 00:00 97.0 65 18 133/78 (96) 97 06/09/18 21:00 Nasal Cannula 2.0 Nasal Cannula 2.0 06/09/18 20:58 75 130/82 06/09/18 20:00 75 06/09/18 20:00 97.3 75 19 130/82 (98) 97 06/09/18 19:45 77 20 99 Nasal Cannula 3.0 32 06/09/18 19:37 Nasal Cannula 3.0 32 06/09/18 19:37 77 20 97 Nasal Cannula 3.0 32 06/09/18 19:36 97 Nasal Cannula 3.0 32 06/09/18 16:00 97.6 61 20 110/77 (88) 98 06/09/18 16:00 64 06/09/18 13:01 69 18 99 Nasal Cannula 3.0 32 06/09/18 12:48 73 18 95 Nasal Cannula 3.0 32 Intake and Output 06/09/18 06/10/18 19:00 07:00 Intake Total 420 ml 480 ml Output Total 250 ml 600 ml Balance 170 ml -120 ml Intake Oral 420 ml Other 480 ml Output Urine Total 250 ml 600 ml # Voids 1 # Bowel Movements 2 General Appearance: no acute distress, cachetic HEENT: normocephalic, atraumatic, anicteric, mucous membranes moist Respiratory/Chest: chest wall non-tender, lungs clear, normal breath sounds, no respiratory distress, no accessory muscle use Cardiovascular: normal peripheral pulses, normal rate, regular rhythm Abdomen: normal bowel sounds, soft, non tender, no organomegaly, non distended , no mass Extremities: no cyanosis, no clubbing, no edema Current Medications Medications (Trade) Dose Ordered Sig/Cynthia Route PRN Reason Start Time Stop Time Status Last Admin Dose Admin Acetaminophen (Tylenol) 500 mg Q6H PRN ORAL Mild Pain/Temp > 100.5 06/05/18 13:30 07/05/18 13:29 06/05/18 13:52 Al Hydroxide/Mg Hydroxide (Mylanta) 30 ml BID PRN ORAL Dyspepsia 06/04/18 23:45 07/04/18 23:44 06/09/18 21:54 Albuterol/ Ipratropium (Albuterol/ Ipratropium) 3 ml Q6HRT HHN 06/05/18 19:00 06/10/18 18:59 06/10/18 07:10 Alprazolam (Xanax) 0.25 mg BID PRN ORAL For Anxiety 06/04/18 23:45 06/11/18 23:44 06/10/18 08:33 Benazepril HCl (Lotensin) 10 mg DAILY ORAL 06/08/18 11:58 07/08/18 11:57 06/10/18 08:34 Carvedilol (Coreg) 3.125 mg EVERY 12 HOURS ORAL 06/08/18 21:00 07/08/18 20:59 06/10/18 08:33 Dextrose (Dextrose 50%) 25 ml Q30M PRN IV Hypoglycemia 06/04/18 23:45 07/04/18 23:44 Dextrose (Dextrose 50%) 50 ml Q30M PRN IV Hypoglycemia 06/04/18 23:45 07/04/18 23:44 Docusate Sodium (Colace) 100 mg TWICE A DAY ORAL 06/05/18 09:00 07/05/18 08:59 06/10/18 08:33 Ferrous Sulfate (Feosol) 325 mg THREE TIMES A DAY ORAL 06/05/18 18:00 07/05/18 17:59 06/10/18 08:32 Folic Acid (Folate) 1 mg DAILY ORAL 06/06/18 09:00 07/06/18 08:59 06/10/18 08:33 Heparin Sodium (Porcine) (Heparin 5000 units/ml) 5,000 units EVERY 12 HOURS SUBQ 06/05/18 09:00 07/05/18 08:59 06/10/18 08:42 Insulin Aspart (NovoLOG) BEFORE MEALS AND HS SUBQ 06/05/18 06:30 07/05/18 06:29 06/06/18 17:45 Lorazepam (Ativan) 0.5 mg HSPRN PRN ORAL For anxiety causing insomnia 06/05/18 13:30 06/12/18 13:29 06/05/18 20:24 Pantoprazole (Protonix) 40 mg DAILY ORAL 06/05/18 09:00 07/05/18 08:59 06/10/18 08:32 Risperidone (RisperDAL) 0.5 mg DAILYPRN PRN ORAL Agitation 06/05/18 13:30 07/05/18 13:29 Sevelamer Carbonate (Renvela) 800 mg THREE TIMES A DAY ORAL 06/05/18 18:00 07/05/18 17:59 06/10/18 08:32 Sodium Chloride 1,000 ml @ 500 mls/hr Q2H PRN IVLG sbp<90 during hd 06/08/18 11:59 06/10/18 23:59 Valproic Acid (Depakene) 750 mg EVERY 12 HOURS ORAL 06/06/18 21:00 07/05/18 20:59 06/10/18 08:32 Vitamin D (Vitamin D) 5,000 intlu DAILY ORAL 06/06/18 09:00 07/06/18 08:59 06/10/18 08:32 Conrado Cantrell MD Jun 10, 2018 12:21
[2018-06-11] VITALS: BP 118/78
[2018-06-11 04:00] VITALS: BP 116/73
[2018-06-11] MEDS: NovoLOG Insulin Flexpen SUBQ SCH ×3 (06:30→16:30)
[2018-06-11 08:00] VITALS: BP 116/78
[2018-06-11] MEDS: Valproic Acid 250mg/5ml Liquid ORAL SCH (08:35)
[2018-06-11] MEDS: Docusate 100mg cap ORAL SCH ×2 (08:35→17:50)
[2018-06-11] MEDS: Vitamin D 1000 IU Tab ORAL SCH (08:36)
[2018-06-11] MEDS: Heparin 5000 units/ml inj SUBQ SCH (08:37)
[2018-06-11] MEDS: ALPRAZolam 0.25mg tab ORAL PRN ×2 (08:40→17:50)
[2018-06-11] MEDS: Benazepril 10mg tab ORAL SCH (09:00)
--- NOTE | 2018-06-11 11:25 | Pulmonology Progress Note ---
Assessment/Plan Problems: (1) Psychiatric disorder (2) ESRD on hemodialysis (3) CHF (congestive heart failure) (4) Acute decompensated heart failure (5) COPD exacerbation Assessment/Plan ASSESSMENT: The patient is a 63-year-old male, former smoker with underlying psychiatric disorder, chronic obstructive pulmonary disease, end-stage renal disease on dialysis, hypertension, presenting with shortness of breath in the setting of chronic obstructive pulmonary disease exacerbation and volume overload, plus or minus an antecedent viral URI/ tracheobronchitis. PROBLEM LIST: 1. Chronic obstructive pulmonary disease with acute exacerbation. 2. Viral URI versus tracheobronchitis. 3. Hypoxemia. 4. End-stage renal disease on dialysis. 5. CHF with severe systolic dysfunction (EF 15%) and ADHF 6. Small bilateral pleural effusion secondary to above. 7. Prior smoker. 8. History of psychiatric disorder. TREATMENT PLAN: 1. Optimize pulmonary hygiene/mobilize as tolerated. 2. Titrate down FiO2 to keep saturations greater than 90%. Patient desaturates on RA to 80%, need 2L O2 via NC to keep SaO2 @ 90% 3. Rfmsx-gzq-zqysh and p.r.n. bronchodilators. 4. S/P PRED x 5 days, off steroids 5. S/P AZITHRO x 5 days, off Abx 6. F/U cardiology recs, medical management, declines NM stress test, awaiting life vest - NO PULMONARY CONTRAINDICATION TO B-AGGIE USE FOR HF 7. Monitor volumes and renal function, Bumex and dialysis per Renal 8. Monitor effusions 9. Aspiration precautions. 10. DVT prophylaxis with heparin subcutaneous. 11. The patient should have outpatient pulmonary evaluation to optimize inhaler regimen. Subjective Allergies: Coded Allergies: PENICILLINS (Verified Allergy, Unknown, 06/04/18) Subjective IO inaccurate, awaiting HD AFVSS, stable O2 needs Less cough + SOB no CP no F/C Objective Last 24 Hour Vital Signs Date Time Temp Pulse Resp B/P (MAP) Pulse Ox O2 Delivery O2 Flow Rate FiO2 06/11/18 09:00 Nasal Cannula 2.0 06/11/18 09:00 67 116/57 06/11/18 09:00 116/57 06/11/18 08:00 97.1 63 22 116/78 (91) 94 06/11/18 08:00 67 06/11/18 04:00 63 06/11/18 04:00 97.4 63 18 116/73 (87) 97 06/11/18 00:00 97.7 73 18 118/78 (91) 97 06/11/18 00:00 73 06/10/18 21:45 64 178/75 (109) 06/10/18 21:39 63 106/73 06/10/18 21:00 Nasal Cannula 2.0 06/10/18 20:30 97.9 64 20 176/74 (108) 97 06/10/18 20:00 Nasal Cannula 3.0 32 06/10/18 20:00 96 Nasal Cannula 3.0 32 06/10/18 20:00 74 06/10/18 20:00 Nasal Cannula 3.0 32 06/10/18 20:00 Nasal Cannula 3.0 32 06/10/18 16:00 66 06/10/18 16:00 97.2 69 22 111/64 (80) 98 06/10/18 13:00 78 18 98 Nasal Cannula 3.0 32 06/10/18 12:55 76 18 96 Nasal Cannula 3.0 32 06/10/18 12:00 97.1 66 20 115/72 (86) 96 06/10/18 12:00 73 Intake and Output 06/10/18 06/11/18 18:59 06:59 Intake Total 1060 ml 240 ml Output Total 400 ml Balance 1060 ml -160 ml Intake Oral 1060 ml Other 240 ml Output Urine Total 400 ml # Voids 5 2 # Bowel Movements 2 1 General Appearance: WD/WN, no acute distress HEENT: normocephalic, atraumatic, anicteric, mucous membranes moist Respiratory/Chest: chest wall non-tender, lungs clear - but distant, normal breath sounds, no respiratory distress Cardiovascular: normal peripheral pulses, normal rate, regular rhythm Abdomen: normal bowel sounds, soft, non tender, no organomegaly, non distended , no mass Extremities: no cyanosis, no clubbing, no edema Current Medications Medications (Trade) Dose Ordered Sig/Cynthia Route PRN Reason Start Time Stop Time Status Last Admin Dose Admin Acetaminophen (Tylenol) 500 mg Q6H PRN ORAL Mild Pain/Temp > 100.5 06/05/18 13:30 07/05/18 13:29 06/05/18 13:52 Al Hydroxide/Mg Hydroxide (Mylanta) 30 ml BID PRN ORAL Dyspepsia 06/04/18 23:45 07/04/18 23:44 06/09/18 21:54 Alprazolam (Xanax) 0.25 mg BID PRN ORAL For Anxiety 06/04/18 23:45 06/11/18 23:44 06/11/18 08:40 Benazepril HCl (Lotensin) 10 mg DAILY ORAL 06/08/18 11:58 07/08/18 11:57 06/10/18 08:34 Carvedilol (Coreg) 3.125 mg EVERY 12 HOURS ORAL 06/08/18 21:00 07/08/18 20:59 06/10/18 21:39 Dextrose (Dextrose 50%) 25 ml Q30M PRN IV Hypoglycemia 06/04/18 23:45 07/04/18 23:44 Dextrose (Dextrose 50%) 50 ml Q30M PRN IV Hypoglycemia 06/04/18 23:45 07/04/18 23:44 Docusate Sodium (Colace) 100 mg TWICE A DAY ORAL 06/05/18 09:00 07/05/18 08:59 06/10/18 17:47 Ferrous Sulfate (Feosol) 325 mg THREE TIMES A DAY ORAL 06/05/18 18:00 07/05/18 17:59 06/11/18 08:36 Folic Acid (Folate) 1 mg DAILY ORAL 06/06/18 09:00 07/06/18 08:59 06/11/18 08:35 Heparin Sodium (Porcine) (Heparin 5000 units/ml) 5,000 units EVERY 12 HOURS SUBQ 06/05/18 09:00 07/05/18 08:59 06/10/18 21:39 Insulin Aspart (NovoLOG) BEFORE MEALS AND HS SUBQ 06/05/18 06:30 07/05/18 06:29 06/06/18 17:45 Lorazepam (Ativan) 0.5 mg HSPRN PRN ORAL For anxiety causing insomnia 06/05/18 13:30 06/12/18 13:29 06/05/18 20:24 Pantoprazole (Protonix) 40 mg DAILY ORAL 06/05/18 09:00 07/05/18 08:59 06/11/18 08:37 Risperidone (RisperDAL) 0.5 mg DAILYPRN PRN ORAL Agitation 06/05/18 13:30 07/05/18 13:29 Sevelamer Carbonate (Renvela) 800 mg THREE TIMES A DAY ORAL 06/05/18 18:00 07/05/18 17:59 06/11/18 08:36 Valproic Acid (Depakene) 750 mg EVERY 12 HOURS ORAL 06/06/18 21:00 07/05/18 20:59 06/11/18 08:35 Vitamin D (Vitamin D) 5,000 intlu DAILY ORAL 06/06/18 09:00 07/06/18 08:59 06/11/18 08:36 Conrado Cantrell MD Jun 11, 2018 11:25
[2018-06-11 12:00] VITALS: BP 123/70
--- NOTE | 2018-06-11 12:00 | Nephrology Progress Note ---
Assessment/Plan Problem List: (1) ESRD on hemodialysis (2) COPD exacerbation (3) CHF (congestive heart failure) (4) Acute bronchitis Assessment hyperkalemia Plan HD today DC after HD Discussed with dr Mcneill Subjective Subjective In NAD Objective Objective Last 24 Hour Vital Signs Date Time Temp Pulse Resp B/P (MAP) Pulse Ox O2 Delivery O2 Flow Rate FiO2 06/11/18 09:00 Nasal Cannula 2.0 06/11/18 09:00 67 116/57 06/11/18 09:00 116/57 06/11/18 08:00 97.1 63 22 116/78 (91) 94 06/11/18 08:00 67 06/11/18 04:00 63 06/11/18 04:00 97.4 63 18 116/73 (87) 97 06/11/18 00:00 97.7 73 18 118/78 (91) 97 06/11/18 00:00 73 06/10/18 21:45 64 178/75 (109) 06/10/18 21:39 63 106/73 06/10/18 21:00 Nasal Cannula 2.0 06/10/18 20:30 97.9 64 20 176/74 (108) 97 06/10/18 20:00 Nasal Cannula 3.0 32 06/10/18 20:00 96 Nasal Cannula 3.0 32 06/10/18 20:00 74 06/10/18 20:00 Nasal Cannula 3.0 32 06/10/18 20:00 Nasal Cannula 3.0 32 06/10/18 16:00 66 06/10/18 16:00 97.2 69 22 111/64 (80) 98 06/10/18 13:00 78 18 98 Nasal Cannula 3.0 32 06/10/18 12:55 76 18 96 Nasal Cannula 3.0 32 06/10/18 12:00 97.1 66 20 115/72 (86) 96 06/10/18 12:00 73 Intake and Output 06/10/18 06/11/18 19:00 07:00 Intake Total 1060 ml 240 ml Output Total 400 ml Balance 1060 ml -160 ml Intake Oral 1060 ml Other 240 ml Output Urine Total 400 ml # Voids 5 2 # Bowel Movements 2 1 Height (Feet): 6 Height (Inches): 1.00 Weight (Pounds): 209 Cardiovascular: normal rate Respiratory/Chest: lungs clear Extremities: other - no edema Robert Lemons MD Jun 11, 2018 12:00
[2018-06-11 16:00] VITALS: BP 109/73
[2018-06-11] MEDS ORDERED: DEPAKOTE250 MG PO (17:01)
[2018-06-11] MEDS ORDERED: BENAZEPRIL HCL5 MG ORAL (17:03)
[2018-06-11] MEDS ORDERED: COREG3.125 MG ORAL (17:04)
[2018-06-11] MEDS ORDERED: FOLIC ACID1 M1 PO (17:05)
[2018-06-11] MEDS ORDERED: ASPIRIN81 MG ORAL (17:07)
[2018-06-11] MEDS ORDERED: PANTOPRAZOLE SO40 MG ORAL (17:07)
[2018-06-11] MEDS ORDERED: CALCIUM ACETAT667 MG PO (17:08)
[2018-06-11 20:00] VITALS: BP 118/73
--- NOTE | 2018-06-11 22:07 | General Progress Note ---
Assessment/Plan Assessment/Plan chf effusion cardiomyopathy EF 15% COPD renal failure dialysis dependent htn psyche disorder dialysis diiuresis cards fup patient refused stress test rulout ischemic cause of CM seen by dr jyotsna quevedo consider lifepack on discharge 'pulmonary hygiene on abx on steroids dvt and ulcer prophylaxis dc after dialysis and life vest placement cleared by dr pb phelps and dayami Subjective Allergies: Coded Allergies: PENICILLINS (Verified Allergy, Unknown, 06/04/18) Subjective this note reflects my visit on 06/10, breathing better no chest pain patient refused stress test, dev stock patient cleared to be discharged understands risk of sudden increase morbidity and mortality by not having stress test done, awaiting life vest placment and awaiting dialysis before discahrge Objective Last 24 Hour Vital Signs Date Time Temp Pulse Resp B/P (MAP) Pulse Ox O2 Delivery O2 Flow Rate FiO2 06/11/18 20:00 97.0 73 19 118/73 (88) 98 06/11/18 20:00 68 06/11/18 16:00 97.5 72 19 109/73 (85) 98 06/11/18 16:00 73 06/11/18 12:00 97.2 67 19 123/70 (87) 94 06/11/18 12:00 75 06/11/18 09:00 Nasal Cannula 2.0 06/11/18 09:00 67 116/57 06/11/18 09:00 116/57 06/11/18 08:00 97.1 63 22 116/78 (91) 94 06/11/18 08:00 67 06/11/18 04:00 63 06/11/18 04:00 97.4 63 18 116/73 (87) 97 06/11/18 00:00 97.7 73 18 118/78 (91) 97 06/11/18 00:00 73 Intake and Output 06/10/18 06/11/18 18:59 06:59 Intake Total 1060 ml 240 ml Output Total 400 ml Balance 1060 ml -160 ml Intake Oral 1060 ml Other 240 ml Output Urine Total 400 ml # Voids 5 2 # Bowel Movements 2 1 Height (Feet): 6 Height (Inches): 1.00 Weight (Pounds): 209 General Appearance: WD/WN, no apparent distress Neck: supple Cardiovascular: normal rate Respiratory/Chest: lungs clear Objective 1 plus edema bilaterally Luís Baumann MD Jun 11, 2018 22:07
--- NOTE | 2018-06-12 12:16 | Discharge Summary ---
Discharge Summary Discharge Summary _ DATE OF ADMISSION: 06/04/2018 DATE OF DISCHARGE: 06/11/2018 CONSULTANTS: Dr. Robert Mcneill BRIEF HOSPITAL COURSE: Patient is a 63-year-old male, with history of end-stage renal disease on hemodialysis, history of chronic obstructive pulmonary disease, apparently while at the dialysis center, felt short of breath and was transferred to ED for further evaluation. He admitted to increased shortness of breath and cough for the past week. He denied fever or chills. No headache. No sore throat. No abdominal pain. On evaluation at ED, vital signs were stable. Blood work did not show any leukocytoses, hemoglobin was 13, hematocrit 42. BUN was 31, creatinine 3.9. BNP was greater than 35,000. Blood gas showed hypoxemia. Troponin was negative. EKG showed normal sinus rhythm with no acute changes. Chest x-ray showed evidence of congestive heart failure with interstitial edema and bilateral pleural effusions. He was then admitted for evaluation of pulmonary vascular congestion and bilateral pleural effusions. He was started empirically on Zithromax. He was given respiratory treatment with bronchodilators. [employer] Engineer was consulted. He was started on prednisone 60 mg daily. He was seen by artificial breeding distributor. Echocardiogram done showed ventricular hypokinesis with left ventricular ejection fraction 15%. There was severe mitral regurgitation, moderate tricuspid regurgitation, grade 2 diastolic dysfunction, and right ventricular systolic pressure of 55 consistent with moderate pulmonary hypertension. Venous duplex of lower extremity was negative for acute DVT. He was eventually started on VINCE inhibitor and Coreg. He was continued on inpatient hemodialysis. He was given Bumex. He was placed on fluid and sodium restriction. Patient was advised ischemic workup, however, refused Lexiscan perfusion imaging. Patient was counseled regarding need to undergo stress test to rule out ischemic cause of cardiomyopathy, however, patient still refused. [place] Farmer was consulted for possible ICD placement was recommended trial of optimal medical therapy for 3 months prior to ICD placement. Still patient was adamant and does not want any intervention done. Patient will need LifeVest upon discharge. LifeVest was ordered, however patient refused. Patient was cleared for discharge. Was informed about the risks of sudden and increase morbility and mortality without having the stress test, and LifeVest. FINAL DIAGNOSES: Acute decompensated heart failure with severe systolic dysfunction New onset severe cardiomyopathy Acute COPD exacerbation End-stage renal disease on hemodialysis Hypertension Psychiatric disorder Prior smoker Significant mitral regurgitation Acute bronchitis DISPOSITION: Patient was discharged back to assisted living. DISCHARGE MEDICATIONS: Refer to Discharge Medication List. DISCHARGE INSTRUCTIONS: Follow up with PCP in a week. I have been assigned to dictate discharge summary on this account, and I was not involved in the patient's management. Judy Franklin NP Jun 12, 2018 12:16
== END 2018-06-11 20:00 | DRG 194 ==
LOC: EDBD 16:06 → EMR 17:29 → 2E 17:31 → EDBEDREQ 19:12
PROC: 5A1D70Z Performance of Urinary Filtration, Intermittent, Less than 6 Hours Per Day (ICD-10-PCS; principal; 2018-06-07)
DX: I13.2 Hypertensive heart and chronic kidney disease with heart failure and with stage 5 chronic kidney disease, or end stage renal disease (principal); I27.20 Pulmonary hypertension, unspecified; I42.0 Dilated cardiomyopathy; N18.6 End stage renal disease; I36.1 Nonrheumatic tricuspid (valve) insufficiency; J44.0 Chronic obstructive pulmonary disease with (acute) lower respiratory infection; I50.23 Acute on chronic systolic (congestive) heart failure; Z99.2 Dependence on renal dialysis; Z87.891 Personal history of nicotine dependence; I34.0 Nonrheumatic mitral (valve) insufficiency; J20.9 Acute bronchitis, unspecified; F99 Mental disorder, not otherwise specified; Z88.0 Allergy status to penicillin; J44.1 Chronic obstructive pulmonary disease with (acute) exacerbation; R09.02 Hypoxemia
CPT/HCPCS: 36415; 36600; 71045; 80048; 80053; 80061; 82550; 82553; 82803; 82962; 83036; 83880; 84100; 84443; 84484; 85025; 85610; 85730; 87081; 93005; 93306; 93970; 94640; 94664; 94760; 96365; 99284; J1815; J2785; J7620

== ENCOUNTER 2018-06-22 19:27 | Inpatient (IN) | payer MEDICAID ==
[~2018-06-22] VITALS: Ht 177.8 cm; Wt 63.0 kg
[~2018-06-22 19:27] MED LIST: ALBUTEROL2.5 MG/3 M INH; AQUAPHOR99 GM TP; ARANESP200 MCG/1 IV; ASPIRIN81 MG ORAL; AZITHROMYCIN500 MG ORAL; BENAZEPRIL HCL5 MG ORAL; BUMETANIDE2 MG ORAL; CALCIUM ACETAT667 M1 PO; CALCIUM ACETAT667 MG PO; COREG3.125 MG ORAL; DEPAKOTE250 MG PO; DEPAKOTE500 MG PO; FOLIC ACID1 M1 PO; HALOPERIDOL5 MG/1 M2 IM; HEPARIN SO5000 UNIT2 SUBQ; HYDRALAZIN20 MG/1 ML IVP; IPRATROPIU0.2 MG/1 M HHN; PANTOPRAZOLE SO40 MG ORAL; PREDNISONE20 MG ORAL; RENAGEL800 MG ORAL; SILVADENE20 GM TP; TYLENOL EXTRA500 MG ORAL; VITAMIN D250000 UNI1 ORAL
[2018-06-22 19:28] VITALS: BP 109/75
--- NOTE | 2018-06-22 20:42 | Emergency Room Report ---
History of Present Illness General Chief Complaint: Chest Pain Source: Patient, EMS Present Illness HPI 63-year-old male with a history of hypertension, ESRD on Friday hemodialysis, presents with chest pain while sitting at his [facility] facility, he reports is midsternal, with decision shortness of breath, reports the pain was a gnawing type pain, nonradiating, his given aspirin and nitroglycerin prior to arrival, he does report feeling much improvement in his pain after these interventions. Eyes hemoptysis cough, syncope, any other symptoms, and reports his last dialysis session with Friday he is due for his next one tomorrow. Allergies: Coded Allergies: PENICILLINS (Verified Allergy, Unknown, 06/04/18) TOMATO (Unverified Allergy, Unknown, 06/22/18) Patient History Past Medical History: see triage record Reviewed Nursing Documentation: PMH: Agreed; PSxH: Agreed Nursing Documentation-PMH Past Medical History: No History, Except For Hx Hypertension: Yes Hx Asthma: Yes Hx COPD: Yes Hx Diabetes: Yes Hx Cancer: No Hx Gastrointestinal Problems: No Hx Dialysis: Yes - [facility] History Of Psychiatric Problem: Yes Hx Neurological Problems: No Review of Systems All Other Systems: negative except mentioned in HPI Physical Exam Vital Signs Date Time Temp Pulse Resp B/P (MAP) Pulse Ox O2 Delivery O2 Flow Rate FiO2 06/22/18 19:19 97.5 69 18 109/75 95 Room Air Sp02 EP Interpretation: reviewed, normal General Appearance: no apparent distress, alert, non-toxic Head: normocephalic Eyes: bilateral eye normal inspection, bilateral eye PERRL, bilateral eye EOMI ENT: normal ENT inspection, hearing grossly normal, normal pharynx, no angioedema, normal voice, moist mucus membranes Neck: normal inspection, full range of motion, supple, supple/symm/no masses Respiratory: chest non-tender, lungs clear, normal breath sounds, chest symmetrical, palpation of chest normal Cardiovascular #1: normal peripheral pulses, regular rate, rhythm, other - R chest vascath site c/d/i, no erythema/warmth/breakdown Cardiovascular #2: 2+ radial (R), 2+ radial (L) Gastrointestinal: normal inspection, non tender, soft, no mass, no guarding, no rebound Rectal: deferred Genitourinary: normal inspection, no CVA tenderness Musculoskeletal: back normal, gait/station normal, normal range of motion, non- tender, no calf tenderness Neurologic: alert, responsive, wedger and gluer III-XII nml as tested, motor strength/tone normal, sensory intact, speech normal Psychiatric: judgement/insight normal, memory normal, mood/affect normal Skin: normal color, no rash, warm/dry, normal turgor Lymphatic: no adenopathy Procedures Critical Care Time Critical Care Time 55 minutes of critical care time excluding all procedures due to life- threatening elevated potassium with abnormal ekg Medical Decision Making Diagnostic Impression: Primary Impression: ESRD on hemodialysis Additional Impressions: Pleural effusion Hyperkalemia ER Course Patient with multiple medical problems including ESRD, presenting with dyspnea, chest congestion, chest x-ray shows fluid overload with left-sided effusion, EKG with bifascicular block, patient not with active chest pain, did receive aspirin and nitroglycerin prior to arrival, pain is not consistent with PE, do not suspect PE, suspect fluid overload, will admit for rule out MN, possible ACS , possible fluid overload from yesterday. Given hyperkalemia treatment meds, Dr. Lemons contacted to dialyze, Dr. Baumann to admit to ICU. EKG Diagnostic Results EKG Time: 19:21 EP Interpretation: no stemi Rate: normal Rhythm: NSR ST Segments: no acute changes ASA given to the pt in ED: Yes Rhythm Strip Diag. Results Rhythm Strip Time: 20:40 EP Interpretation: yes Rate: 67 Rhythm: NSR, no PVC's, no ectopy Chest X-Ray Diagnostic Results Chest X-Ray Diagnostic Results : Chest X-Ray Ordered: Yes # of Views/Limited/Complete: 1 View Indication: Chest Pain EP Interpretation: Yes Interpretation: no consolidation, no pneumothorax, other - L sided effusion Impression: Other - L sided effusion, pulm vasc congestion Electronically Signed by: Fuad Saab Md Last Vital Signs Date Time Temp Pulse Resp B/P (MAP) Pulse Ox O2 Delivery O2 Flow Rate FiO2 06/22/18 19:28 69 18 Room Air 06/22/18 19:28 97.5 109/75 95 Disposition: ADMITTED INPATIENT Condition: Critical Signed Out To: FUAD Luo M.D Jun 22, 2018 20:42
[2018-06-22 20:44] LABS: BASOPHILS % (AUTO) 1.9 % (0.0-2.0); EOSINOPHILS % (AUTO) 5.1 % (0.0-3.0); HEMATOCRIT 36.2 % (42.0-52.0); HEMOGLOBIN 11.6 G/DL (14.2-18.0); LYMPHOCYTES % (AUTO) 22.8 % (20.0-45.0); MEAN CORPUSCULAR VOLUME 99 FL (80-99); MONOCYTES % (AUTO) 8.2 % (1.0-10.0); NEUTROPHILS % (AUTO) 61.9 % (45.0-75.0); PLATELET COUNT 161 K/UL (150-450); RED BLOOD COUNT 3.65 M/UL (4.70-6.10)
[2018-06-22 21:14] LABS: INR 1.1 (0.9-1.1)
[2018-06-22 21:30] LABS: ALANINE AMINOTRANSFERASE 61 U/L (12-78); ALBUMIN 2.6 G/DL (3.4-5.0); ALBUMIN/GLOBULIN RATIO 0.7 (1.0-2.7); ALKALINE PHOSPHATASE 89 U/L (46-116); ANION GAP 12 mmol/L (5-15); ASPARTATE AMINO TRANSFERASE 54 U/L (15-37); BILIRUBIN,TOTAL 0.4 MG/DL (0.2-1.0); BLOOD UREA NITROGEN 70 mg/dL (7-18); CALCIUM 8.4 MG/DL (8.5-10.1); CARBON DIOXIDE 21 MMOL/L (21-32); CHLORIDE 102 MMOL/L (98-107); CREATININE 6.2 MG/DL (0.55-1.30); SODIUM 135 MMOL/L (136-145)
[2018-06-22 21:36] LABS: POTASSIUM 6.7 MMOL/L (3.5-5.1)
[2018-06-22] MEDS ORDERED: Insulin Human Regular 100units/ml 3ml IV ONE (21:45)
[2018-06-22] MEDS ORDERED: Sodium Bicarbonate 50ml Carp IV ONE (21:45)
[2018-06-22] MEDS ORDERED: Sodium Polystyrene Sulfonate 15gm Powder ORAL ONE (21:45)
[2018-06-22] MEDS ORDERED: Calcium Gluconate 1gm/10ml vial IVP ONE (21:45)
[2018-06-22] MEDS ORDERED: Sodium Polystyrene Sulfonate 15gm Powder ONE (22:14)
[2018-06-22] MEDS ORDERED: Heparin Sod 1000 units/ml 10ml IV ONE (22:15)
[2018-06-23 02:05] VITALS: BP 126/85
[2018-06-23] MEDS ORDERED: Ipratropium 0.02% Inh Soln 2.5ml UD HHN PRN (02:30)
[2018-06-23] MEDS: Albuterol ud Inhalation HHN SCH ×6 (03:32→22:30)
[2018-06-23 04:00] VITALS: BP 148/100
[2018-06-23 04:57] LABS: BASOPHILS % (AUTO) 1.6 % (0.0-2.0); EOSINOPHILS % (AUTO) 4.4 % (0.0-3.0); HEMATOCRIT 37.2 % (42.0-52.0); HEMOGLOBIN 11.7 G/DL (14.2-18.0); LYMPHOCYTES % (AUTO) 20.3 % (20.0-45.0); MEAN CORPUSCULAR VOLUME 100 FL (80-99); MONOCYTES % (AUTO) 10.7 % (1.0-10.0); NEUTROPHILS % (AUTO) 62.9 % (45.0-75.0); PLATELET COUNT 169 K/UL (150-450); RED BLOOD COUNT 3.73 M/UL (4.70-6.10); RED CELL DISTRIBUTION WIDTH 18.3 % (11.6-14.8); WHITE BLOOD COUNT 6.6 K/UL (4.8-10.8)
[2018-06-23 05:39] LABS: ALANINE AMINOTRANSFERASE 60 U/L (12-78); ALBUMIN 2.7 G/DL (3.4-5.0); ALBUMIN/GLOBULIN RATIO 0.7 (1.0-2.7); ALKALINE PHOSPHATASE 93 U/L (46-116); ANION GAP 15 mmol/L (5-15); ASPARTATE AMINO TRANSFERASE 28 U/L (15-37); BILIRUBIN,TOTAL 0.3 MG/DL (0.2-1.0); BLOOD UREA NITROGEN 72 mg/dL (7-18); CALCIUM 8.7 MG/DL (8.5-10.1); CARBON DIOXIDE 18 MMOL/L (21-32); CHLORIDE 103 MMOL/L (98-107); CREATININE 6.6 MG/DL (0.55-1.30); POTASSIUM 5.1 MMOL/L (3.5-5.1); SODIUM 136 MMOL/L (136-145)
[2018-06-23] MEDS: Bumetanide 1mg tab ORAL SCH ×3 (08:55→17:37)
[2018-06-23 08:57] VITALS: BP 148/100
[2018-06-23] MEDS ORDERED: Aspirin Baby 81mg ORAL SCH (09:00)
[2018-06-23] MEDS ORDERED: Benazepril 10mg tab ORAL SCH (09:00)
[2018-06-23] MEDS ORDERED: Depakote 500mg tab ORAL SCH (09:00)
--- NOTE | 2018-06-23 09:29 | Diagnostic Imaging Report ---
Indication: Chest pain Technique: One view of the chest Comparison: 06/08/2018 Findings: There are bilateral pleural effusions, appearing similar on the right, smaller on the left as compared to prior study. There is minimal interstitial congestion. The heart is enlarged. There is a right jugular tunneled dialysis catheter Impression: Bilateral pleural effusions and borderline interstitial congestion, as described. Note the left pleural fluid is decreased from prior study of 06/08/2018; other findings are similar.
[2018-06-23] MEDS: Calcium Acetate 667mg Tab ORAL SCH ×3 (09:53→17:37)
[2018-06-23] MEDS: Heparin 5000 units/ml inj SUBQ SCH ×2 (09:54→20:30)
[2018-06-23] MEDS: Valproic Acid 250mg/5ml Liquid ORAL SCH ×2 (09:57→20:27)
[2018-06-23 12:00] VITALS: BP 151/100
--- NOTE | 2018-06-23 13:13 | Cardiology Progress Note ---
Assessment/Plan Assessment/Plan chf cm probably non ischemic esrd on hd copd on oxygen at [facility] [facility] na fluid restiction d/w pt not sure if able to toelrate acei due to hyeprkalemia will d/w dr stock need [facility] if bp allow and if ok with dr sánchez and if his bp allows at risk for recurrent addmission [id number] Objective Last 24 Hour Vital Signs Date Time Temp Pulse Resp B/P (MAP) Pulse Ox O2 Delivery O2 Flow Rate FiO2 06/23/18 12:00 97.5 74 20 151/100 (117) 100 06/23/18 12:00 Nasal Cannula 2.0 06/23/18 11:18 77 22 99 Nasal Cannula 3.0 32 06/23/18 11:14 77 22 98 Nasal Cannula 3.0 32 06/23/18 10:56 Nasal Cannula 3.0 06/23/18 08:57 97.6 76 24 148/100 (116) 98 06/23/18 08:34 Nasal Cannula 3.0 06/23/18 08:00 Nasal Cannula 2.0 06/23/18 08:00 79 06/23/18 07:16 74 22 99 Nasal Cannula 3.0 32 06/23/18 07:14 76 22 Nasal Cannula 3.0 32 06/23/18 07:13 96 Nasal Cannula 3.0 32 06/23/18 07:12 Nasal Cannula 3.0 32 06/23/18 07:11 74 22 96 Nasal Cannula 3.0 32 06/23/18 04:00 97.6 76 24 148/100 (116) 98 06/23/18 04:00 Nasal Cannula 2.0 06/23/18 03:43 73 18 100 Nasal Cannula 3.0 32 06/23/18 03:32 77 18 98 Nasal Cannula 3.0 32 06/23/18 03:21 71 06/23/18 02:08 78 06/23/18 02:05 Nasal Cannula 2.0 06/23/18 02:05 97.4 79 24 126/85 (99) 98 06/22/18 19:35 97.5 87 18 109/75 95 Room Air 06/22/18 19:28 69 18 Room Air 06/22/18 19:28 97.5 87 18 109/75 95 Room Air 06/22/18 19:19 97.5 69 18 109/75 95 Room Air Intake and Output 06/22/18 06/23/18 19:00 07:00 Intake Total 0 ml Balance 0 ml Intake Oral 0 ml # Voids 2 # Bowel Movements 6 Laboratory Tests Test 06/22/18 20:20 06/23/18 03:00 White Blood Count 6.0 K/UL (4.8-10.8) 6.6 K/UL (4.8-10.8) Red Blood Count 3.65 M/UL (4.70-6.10) L 3.73 M/UL (4.70-6.10) L Hemoglobin 11.6 G/DL (14.2-18.0) L 11.7 G/DL (14.2-18.0) L Hematocrit 36.2 % (42.0-52.0) L 37.2 % (42.0-52.0) L Mean Corpuscular Volume 99 FL (80-99) 100 FL (80-99) H Mean Corpuscular Hemoglobin 31.7 PG (27.0-31.0) H 31.4 PG (27.0-31.0) H Mean Corpuscular Hemoglobin Concent 32.0 G/DL (32.0-36.0) 31.5 G/DL (32.0-36.0) L Red Cell Distribution Width 18.0 % (11.6-14.8) H 18.3 % (11.6-14.8) H Platelet Count 161 K/UL (150-450) 169 K/UL (150-450) Mean Platelet Volume 7.3 FL (6.5-10.1) 7.9 FL (6.5-10.1) Neutrophils (%) (Auto) 61.9 % (45.0-75.0) 62.9 % (45.0-75.0) Lymphocytes (%) (Auto) 22.8 % (20.0-45.0) 20.3 % (20.0-45.0) Monocytes (%) (Auto) 8.2 % (1.0-10.0) 10.7 % (1.0-10.0) H Eosinophils (%) (Auto) 5.1 % (0.0-3.0) H 4.4 % (0.0-3.0) H Basophils (%) (Auto) 1.9 % (0.0-2.0) 1.6 % (0.0-2.0) Prothrombin Time 12.0 SEC (9.30-11.50) H Prothromb Time International Ratio 1.1 (0.9-1.1) Activated Partial Thromboplast Time 29 SEC (23-33) Sodium Level 135 MMOL/L (136-145) L 136 MMOL/L (136-145) Potassium Level 6.7 MMOL/L (3.5-5.1) *H 5.1 MMOL/L (3.5-5.1) Chloride Level 102 MMOL/L (98-107) 103 MMOL/L (98-107) Carbon Dioxide Level 21 MMOL/L (21-32) 18 MMOL/L (21-32) L Anion Gap 12 mmol/L (5-15) 15 mmol/L (5-15) Blood Urea Nitrogen 70 mg/dL (7-18) H 72 mg/dL (7-18) H Creatinine 6.2 MG/DL (0.55-1.30) H 6.6 MG/DL (0.55-1.30) H Estimat Glomerular Filtration Rate 9.2 mL/min (>60) 8.6 mL/min (>60) Glucose Level 87 MG/DL (74-106) 81 MG/DL (74-106) Calcium Level 8.4 MG/DL (8.5-10.1) L 8.7 MG/DL (8.5-10.1) Total Bilirubin 0.4 MG/DL (0.2-1.0) 0.3 MG/DL (0.2-1.0) Aspartate Amino Transf (AST/SGOT) 54 U/L (15-37) H 28 U/L (15-37) Alanine Aminotransferase (ALT/SGPT) 61 U/L (12-78) 60 U/L (12-78) Alkaline Phosphatase 89 U/L (46-116) 93 U/L (46-116) Troponin I 0.031 ng/mL (0.000-0.056) Pro-B-Type Natriuretic Peptide > 08240 pg/mL (0-125) H Total Protein 6.5 G/DL (6.4-8.2) 6.5 G/DL (6.4-8.2) Albumin 2.6 G/DL (3.4-5.0) L 2.7 G/DL (3.4-5.0) L Globulin 3.9 g/dL 3.8 g/dL Albumin/Globulin Ratio 0.7 (1.0-2.7) L 0.7 (1.0-2.7) L Microbiology Date/Time Source Procedure Growth Status 06/22/18 21:20 Rectum Received Baldo Mcneill MD Jun 23, 2018 13:13
--- NOTE | 2018-06-23 14:27 | Consultation ---
Consult Note Assessment/Plan Renal consult dictated # [id number] Robert Lemons MD Jun 23, 2018 14:27
[2018-06-23] MEDS ORDERED: Nephrovite tab (Rena-Vite) ORAL SCH (14:30)
[2018-06-23] MEDS ORDERED: Heparin Sod 1000 units/ml 10ml IV PRN (15:00)
[2018-06-23 16:00] VITALS: BP 138/99
--- NOTE | 2018-06-23 16:00 | Cardiology Report ---
APPROVED REPORT EKG Measurement Heart [id number] Sinus rhythm with occasional premature ventricular complexes Possible Left atrial enlargement Right bundle branch block Left anterior fascicular block Bifascicular block Left ventricular hypertrophy Cannot rule out Septal infarct, age undetermined Abnormal ECG
--- NOTE | 2018-06-23 16:02 | Pulmonology Progress Note ---
Assessment/Plan Assessment/Plan Pulmonary Consultation Note HPI 63-year-old male with a history of COPD, Cardiomyopathy, CHF, hypertension, ESRD on Friday hemodialysis, presents with chest pain while sitting at his detention facility, he reports is midsternal, with decision shortness of breath, reports the pain was a gnawing type pain, nonradiating, his given aspirin and nitroglycerin prior to arrival, he does report feeling much improvement in his pain after these interventions. Eyes hemoptysis cough, syncope, any other symptoms, and reports his last dialysis session with Friday he is due for his next one tomorrow. Allergies: Coded Allergies: PENICILLINS (Verified Allergy, Unknown, 06/04/18) TOMATO (Unverified Allergy, Unknown, 06/22/18) Past Medical History: COPD, Cardiomyopathy, CHF, hypertension, ESRD All Other Systems: negative except mentioned in HPI Physical Exam Vital Signs Noted Date Time Temp Pulse Resp B/P (MAP) Pulse Ox O2 Delivery O2 Flow Rate FiO2 06/22/18 19:28 69 18 Room Air 06/22/18 19:28 97.5 109/75 95 General Appearance: no apparent distress, alert, non-toxic Head: normocephalic Eyes: bilateral eye normal inspection, bilateral eye PERRL, bilateral eye EOMI ENT: normal ENT inspection, hearing grossly normal, normal pharynx, no angioedema, normal voice, moist mucus membranes Neck: normal inspection, full range of motion, supple, supple/symm/no masses Respiratory: chest non-tender, lungs clear, normal breath sounds, chest symmetrical, palpation of chest normal Cardiovascular #1: normal peripheral pulses, regular rate, rhythm, other - R chest vascath site c/d/i, no erythema/warmth/breakdown Cardiovascular #2: 2+ radial (R), 2+ radial (L) Gastrointestinal: normal inspection, non tender, soft, no mass, no guarding, no rebound Rectal: deferred Genitourinary: normal inspection, no CVA tenderness Musculoskeletal: back normal, gait/station normal, normal range of motion, non- tender, no calf tenderness Neurologic: alert, responsive, 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 as tested, motor strength/tone normal, sensory intact, speech normal Psychiatric: judgement/insight normal, memory normal, mood/affect normal Skin: normal color, no rash, warm/dry, normal turgor Lymphatic: no adenopathy Impression: ESRD on hemodialysis Volume overload on CXR Pleural effusion 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 Hyperkalemia Plan Dialyse per Renal HHN O2 PRN 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 Monitor labs EKG Time: 19:21 EP Interpretation: no stemi Rate: normal Rhythm: NSR ST Segments: no acute changes Chest X-Ray no consolidation, no pneumothorax, other - L sided effusion Impression: Other - L sided effusion, pulm vasc congestion Subjective ROS Limited/Unobtainable: No Respiratory: Reports: shortness of breath Allergies: Coded Allergies: PENICILLINS (Verified Allergy, Unknown, 06/04/18) TOMATO (Unverified Allergy, Unknown, 06/22/18) Objective Last 24 Hour Vital Signs Date Time Temp Pulse Resp B/P (MAP) Pulse Ox O2 Delivery O2 Flow Rate FiO2 06/23/18 15:54 82 06/23/18 15:33 74 20 99 Nasal Cannula 3.0 32 06/23/18 15:13 79 20 98 Nasal Cannula 3.0 32 06/23/18 12:00 97.5 74 20 151/100 (117) 100 06/23/18 12:00 Nasal Cannula 2.0 06/23/18 12:00 93 06/23/18 11:18 77 22 99 Nasal Cannula 3.0 32 06/23/18 11:14 77 22 98 Nasal Cannula 3.0 32 06/23/18 10:56 Nasal Cannula 3.0 06/23/18 08:57 97.6 76 24 148/100 (116) 98 06/23/18 08:34 Nasal Cannula 3.0 06/23/18 08:00 Nasal Cannula 2.0 06/23/18 08:00 79 06/23/18 07:16 74 22 99 Nasal Cannula 3.0 32 06/23/18 07:14 76 22 Nasal Cannula 3.0 32 06/23/18 07:13 96 Nasal Cannula 3.0 32 06/23/18 07:12 Nasal Cannula 3.0 32 06/23/18 07:11 74 22 96 Nasal Cannula 3.0 32 06/23/18 04:00 97.6 76 24 148/100 (116) 98 06/23/18 04:00 Nasal Cannula 2.0 06/23/18 03:43 73 18 100 Nasal Cannula 3.0 32 06/23/18 03:32 77 18 98 Nasal Cannula 3.0 32 06/23/18 03:21 71 06/23/18 02:08 78 06/23/18 02:05 Nasal Cannula 2.0 06/23/18 02:05 97.4 79 24 126/85 (99) 98 06/22/18 19:35 97.5 87 18 109/75 95 Room Air 06/22/18 19:28 69 18 Room Air 06/22/18 19:28 97.5 87 18 109/75 95 Room Air 06/22/18 19:19 97.5 69 18 109/75 95 Room Air Intake and Output 06/22/18 06/23/18 19:00 07:00 Intake Total 0 ml Balance 0 ml Intake Oral 0 ml # Voids 2 # Bowel Movements 6 Microbiology Date/Time Source Procedure Growth Status 06/22/18 21:20 Rectum Received Laboratory Tests 06/22/18 20:20: White Blood Count 6.0, Red Blood Count 3.65L, Hemoglobin 11.6L, Hematocrit 36.2L , Mean Corpuscular Volume 99, Mean Corpuscular Hemoglobin 31.7H, Mean Corpuscular Hemoglobin Concent 32.0, Red Cell Distribution Width 18.0H, Platelet Count 161, Mean Platelet Volume 7.3, Neutrophils (%) (Auto) 61.9, Lymphocytes (%) (Auto) 22.8, Monocytes (%) (Auto) 8.2, Eosinophils (%) (Auto) 5.1H, Basophils (%) (Auto) 1.9, Prothrombin Time 12.0H, Prothromb Time International Ratio 1.1, Activated Partial Thromboplast Time 29, Sodium Level 135L, Potassium Level 6.7*H, Chloride Level 102, Carbon Dioxide Level 21, Anion Gap 12, Blood Urea Nitrogen 70H, Creatinine 6.2H, Estimat Glomerular Filtration Rate 9.2, Glucose Level 87, Calcium Level 8.4L, Total Bilirubin 0.4, Aspartate Amino Transf (AST/SGOT) 54H, Alanine Aminotransferase (ALT/SGPT) 61, Alkaline Phosphatase 89, Troponin I 0.031, Pro-B-Type Natriuretic Peptide > 17309U, Total Protein 6.5, Albumin 2.6L, Globulin 3.9, Albumin/Globulin Ratio 0.7L 06/23/18 03:00: White Blood Count 6.6, Red Blood Count 3.73L, Hemoglobin 11.7L, Hematocrit 37.2L , Mean Corpuscular Volume 100H, Mean Corpuscular Hemoglobin 31.4H, Mean Corpuscular Hemoglobin Concent 31.5L, Red Cell Distribution Width 18.3H, Platelet Count 169, Mean Platelet Volume 7.9, Neutrophils (%) (Auto) 62.9, Lymphocytes (%) (Auto) 20.3, Monocytes (%) (Auto) 10.7H, Eosinophils (%) (Auto) 4.4H, Basophils (%) (Auto) 1.6, Sodium Level 136, Potassium Level 5.1, Chloride Level 103, Carbon Dioxide Level 18L, Anion Gap 15, Blood Urea Nitrogen 72H, Creatinine 6.6H, Estimat Glomerular Filtration Rate 8.6, Glucose Level 81, Calcium Level 8.7, Total Bilirubin 0.3, Aspartate Amino Transf (AST/SGOT) 28, Alanine Aminotransferase (ALT/SGPT) 60, Alkaline Phosphatase 93, Total Protein 6.5, Albumin 2.7L, Globulin 3.8, Albumin/Globulin Ratio 0.7L 06/23/18 13:45: Troponin I 0.024 Current Medications Medications (Trade) Dose Ordered Sig/Cynthia Route PRN Reason Start Time Stop Time Status Last Admin Dose Admin Acetaminophen (Tylenol) 500 mg Q6H PRN ORAL For Pain 06/23/18 02:30 07/23/18 02:29 Albuterol Sulfate (Proventil) 2.5 mg Q4H HHN 06/23/18 02:30 06/28/18 02:29 06/23/18 15:13 Aspirin (ASA) 81 mg DAILY ORAL 06/23/18 09:00 07/23/18 08:59 06/23/18 09:52 Benazepril HCl (Lotensin) 10 mg DAILY ORAL 06/23/18 09:00 07/23/18 08:59 Bumetanide (Bumex) 2 mg TID ORAL 06/23/18 09:00 07/23/18 08:59 06/23/18 12:17 Calcium Acetate (Phoslo) 1,334 mg TID ORAL 06/23/18 09:00 07/23/18 08:59 06/23/18 12:17 Carvedilol (Coreg) 3.125 mg EVERY 12 HOURS ORAL 06/23/18 09:00 07/23/18 08:59 Chlorhexidine Gluconate (Antonia-Hex 2%) 1 applic DAILY@2000 TOPIC 06/23/18 20:00 07/23/18 19:59 Folic Acid (Folate) 1 mg DAILY ORAL 06/23/18 09:00 07/23/18 08:59 06/23/18 09:52 Heparin Sodium (Porcine) (Heparin 5000 units/ml) 5,000 units EVERY 12 HOURS SUBQ 06/23/18 09:00 07/23/18 08:59 06/23/18 09:54 Heparin Sodium (Porcine) (Heparin Sod 1000 units/ml 10ml) 500 unit ONCE PRN IV FOR HD USE ONLY 06/23/18 15:00 06/25/18 23:59 Hydralazine HCl (Apresoline) 10 mg Q6HR PRN IV BLOOD PRESSURE 06/23/18 02:30 07/23/18 02:29 Ipratropium [place] (Atrovent) 500 mcg Q4H PRN HHN Shortness of Breath 06/23/18 02:30 06/28/18 02:29 Pantoprazole (Protonix) 40 mg DAILY ORAL 06/23/18 09:00 07/23/18 08:59 06/23/18 09:52 Sodium Chloride 1,000 ml @ 500 mls/hr Q2H PRN IVLG sbp<90 during hd 06/23/18 15:00 06/25/18 23:59 Valproic Acid (Depakene) 750 mg EVERY 12 HOURS ORAL 06/23/18 09:30 07/23/18 09:29 06/23/18 09:57 Vitamin B Complex/ Vit C/Folic Acid (Nephrovite) 1 tab DAILY ORAL 06/23/18 14:30 07/23/18 14:29 06/23/18 15:07 Gagan Yousif MD Jun 23, 2018 16:02
--- NOTE | 2018-06-23 18:45 | Consultation ---
DATE OF CONSULTATION: 06/23/2018 CARDIOLOGY CONSULTATION CONSULTING PHYSICIAN: Baldo Mcneill M.D. REFERRING PHYSICIAN: Luís Baumann M.D. REASON FOR REFERRAL: Shortness of breath. HISTORY OF PRESENT ILLNESS: This is an elderly gentleman, who is known to me. He is actually middle-aged 63-year-old. He has end-stage renal disease, on hemodialysis. He came into the hospital because of shortness of breath and chest pain. Apparently, shortness of breath, he is not able to lay down flat. He has to have 3 or 4 pillows to be able to make that. He apparently had some chest pains at the facility as well as coming into the hospital with midsternal chest pain. He did receive some nitroglycerin and aspirin prior to the evaluation. He does not have any chest pain at this time. No dizziness or lightheadedness on standing. No heart pounding or palpitations. PAST MEDICAL HISTORY: Positive for history of recently diagnosed cardiomyopathy with congestive heart failure acute on chronic, systolic bilateral pleural effusions, bilateral infiltrates, chronic obstructive pulmonary disease on home oxygen therapy, end-stage renal disease, on hemodialysis, hyperkalemia, cardiomyopathy felt to be nonischemic, no reversible defect, 12% fixed defect, the degree of fixed defect was much less than the one would expect with his cardiomyopathy, therefore, it was felt that he is in probably myopathic process as well. He is basically noncompliant with several issues. SOCIAL HISTORY: Extensive history of smoking although this time he does not smoke and does not drink alcohol. REVIEW OF SYSTEMS: GASTROINTESTINAL: Denies. GENITOURINARY: He does make any urine. PULMONARY: Positive for coughing. CONSTITUTIONAL: Negative. NEUROLOGIC: Negative. PHYSICAL EXAMINATION: GENERAL: Shows to be elderly gentleman, in no respiratory distress. HEENT: Unremarkable. NECK: Supple. No jugular venous distention. No abdominojugular reflux noted. LUNGS: Crackles noted at the left base. CARDIAC: Regular rate and rhythm. No heaves or thrills noted. ABDOMEN: Soft and nontender. Positive bowel sounds. EXTREMITIES: There is 1 to 2+ edema of the lower extremities on the right side. NEUROLOGICAL: He is awake, alert, responsive, and in no distress. LABORATORY AND DIAGNOSTIC DATA: White count of 6.2, hemoglobin 11.7, and platelet count of 169,000. Sodium is 136, potassium 5.1, chloride 103, bicarb of 18, BUN 72, creatinine 6.6, and a glucose of 81. All troponins are again negative. ProBNP was greater than 35,000 in line with renal failure. His potassium at the time of his admission was 6.7 yesterday. His INR was 1.1 and PTT of 29. He had a chest x-ray performed in the emergency room that showed bilateral pleural effusions and borderline interstitial congestion as described, but the pleural effusion improved compared to prior level on 06/08/2018. Did have showed basically sinus rhythm with intraventricular conduction delay and a premature atrial complexes noted with some T-wave inversion in V1 and V2 and in direct comparison with prior electrocardiogram back on 06/04/2018, it really does not appear to be any changes on the present EKG. ASSESSMENT AND PLAN: 1. Atypical chest pain. 2. Cardiomyopathy systolic, felt to be probably nonischemic. 3. End-stage renal disease, on hemodialysis. 4. Hyperkalemia. 5. Chronic obstructive pulmonary disease. 6. Dietary indiscretion. 7. Recent pneumonia. PLAN: Dr. Baumann, this patient was seen in cardiac consultation. I had an extensive discussion with the patient regarding the need for compliance with a low-sodium and fluid-restricted diet. Previously, he has had a myocardial perfusion imaging that showed a fixed defect but no reversible defect. It was felt that the patient has a nonischemic cardiomyopathy. He was started on some VINCE inhibitors and beta-blockers. His potassium, however, was a bit on the high side when he presented to the emergency room . Not sure if that medication can be continued. We need to discuss that with Dr. Lemons. In light of the fact that he is somewhat noncompliant, I have explained to him that he will have recurrent hospitalization or sensation of not feeling good because of shortness of breath until he is compliant with the fluid sodium restriction. Dietary restriction avoiding the cold cuts, salty food, and canned food were all discussed with the patient. He will have a repeat cardiac tests as a matter of routine because of his symptom of chest pain. However, his perfusion imaging was recently performed and it did not show any significant abnormality. His cardiac enzymes last night was the same as it was the last time he came in to the hospital on 06/07/2018. Repeat level will be checked. Baldo Mcneill M.D. DR: CHRISTOS JOB#: [id number] CC:
[2018-06-23 20:00] VITALS: BP 141/89
[2018-06-23] MEDS ORDERED: Dyna-Hex 2% Top Sol 2oz TOPIC SCH (20:00)
--- NOTE | 2018-06-23 20:00 | Consultation ---
DATE OF CONSULTATION: 06/23/2018 NEPHROLOGY CONSULTATION CONSULTING PHYSICIAN: Robert Lemons M.D. REFERRING PHYSICIAN: Luís Baumann M.D. REASON FOR CONSULTATION: End-stage renal disease, requiring hemodialysis. HISTORY OF PRESENT ILLNESS: This is a 63-year-old male, who was just recently admitted to [facility] for shortness of breath. Prior to that, he was also at [facility]. He has a combination of end-stage renal disease, severe cardiomyopathy with ejection fraction of 15%, and COPD, who is on home oxygen. He was admitted again last night with shortness of breath and was dialyzed this morning and is feeling better. PAST MEDICAL HISTORY: As mentioned, he has history of severe cardiomyopathy. He had a stress test done recently at [facility], which did not show reversible ischemia. MEDICATIONS: Reviewed in the [facility]. SOCIAL HISTORY: Previously, the patient was a heavy smoker. No history of alcohol abuse. He lives in a board and care. ALLERGIES: No known drug allergies. REVIEW OF SYSTEMS: As above. PHYSICAL EXAMINATION: GENERAL: The patient is a 63-year-old male, in no acute distress. VITAL SIGNS: Blood pressure is 151/100, pulse 74, temperature 97.5, respiratory rate is 20. HEENT: [place] conjunctivae. Anicteric sclerae. NECK: Supple. LUNGS: Coarse breath sounds. HEART: S1 and S2 without murmurs or rubs. ABDOMEN: Soft, nontender. EXTREMITIES: Bilateral pedal edema. LABORATORY FINDINGS: CBC shows WBC of 6.6, hematocrit 37.2, hemoglobin 11.7, platelets 169,000. Chemistry panel shows serum sodium 136, potassium 5.1 which is down from 6.7, chloride of 103, CO2 18, BUN 72, creatinine 6.6. Albumin is 2.7. ASSESSMENT: This is a 63-year-old male, who was admitted with shortness of breath and fluid overload. The patient has a combination of severe cardiomyopathy on top of end-stage renal disease and underlying COPD. He is feeling better now after dialysis. He still has significant edema which he did not have when he left the hospital at [facility], so I am assuming that he drinks also lots of fluids. Also, his blood pressure is on the high side. PLAN: The patient will be dialyzed again tomorrow with good ultrafiltration. I discussed the case with Dr. Mcneill. I agree with putting the patient on VINCE inhibitors. The patient will be on fluid restriction, 1 liter a day. I will follow and make further recommendations based on the hospital course and findings. Thank you very much, Dr. Baumann, for this consultation. Robert Lemons M.D. DR: Bacilio JOB#: [id number] CC:
[2018-06-23] MEDS: Acetaminophen 500mg (ES) tab ORAL PRN (20:29)
[2018-06-24] VITALS: BP 135/89
[2018-06-24] MEDS: Albuterol ud Inhalation HHN SCH ×8 (02:30→22:51)
[2018-06-24] MEDS: Acetaminophen 500mg (ES) tab ORAL PRN (03:06)
[2018-06-24 04:00] VITALS: BP 143/111
--- NOTE | 2018-06-24 04:45 | History and Physical Report ---
DATE OF ADMISSION: 06/22/2018 HISTORY OF PRESENT ILLNESS: The patient is an unfortunate 63-year-old gentleman with a history of nonischemic cardiomyopathy, CHF with ejection fraction of 15%, end-stage renal disease, on dialysis, who was recently admitted to [facility] with pneumonia, pleural effusion, CHF, and shortness of breath, treated with antibiotics, underwent a nuclear stress test, revealing a total perfusion defect of 12%, which was fixed and nonreversible, clinical response being nonischemic. The patient refused to undergo cardiac catheterization. He also refused to get a LifeVest. He was discharged, then followed by Dr. 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 Denies any chest pain. He was noted to be in CHF with pleural effusion. He denies any fevers or chills. Denies any cough. There is no headache. No sore throat. PAST MEDICAL HISTORY: Includes a history of hypertension, history of COPD, history of renal failure, on dialysis; history of nonischemic cardiomyopathy, history of ejection fraction of 15%, and history of pleural effusions. MEDICATIONS: Please see his reconciled med list. SOCIAL HISTORY: He does have a history of smoking for many years. No alcohol use. He is on dialysis. ALLERGIES: Allergic to penicillin, which causes swelling. REVIEW OF SYSTEMS: A 12-point review of systems reviewed and negative except for above. PHYSICAL EXAMINATION: GENERAL: He is well-developed and well-nourished, currently in no apparent distress. VITAL SIGNS: Blood pressure 138/99, pulse 64, pulse oximetry 99% on two liters, and temperature 97.7. HEENT: Head, normocephalic and atraumatic. Pupils are equal and reactive to light. Extraocular motions are intact. Eyes are anicteric. NECK: Supple. No JVP. No bruits. LUNGS: Crackles at the left base. HEART: Regular rate and rhythm without murmurs, rubs, or gallops. ABDOMEN: Soft. Positive bowel sounds. Nondistended. Nontender. EXTREMITIES: There is 1 to 2+ bilateral lower extremity edema, mostly on the right. NEUROLOGICAL: He is alert and nonfocal. LABORATORY AND DIAGNOSTIC DATA: White count 6.2, hemoglobin 11.7, and platelet count 159,000. Sodium 136, potassium 5.1, chloride 103, bicarbonate 18, BUN of 72, creatinine 6.6, and glucose 81. Troponins are negative. ProBNP is greater than 35,000. His INR is 1.1 and PTT is 29. Chest x-ray reveals bilateral pleural effusions, borderline interstitial congestion, however, the effusions improved compared to 06/08/2018. His initial potassium in the ER was 6.7 and he had undergone dialysis. EKG reveals sinus rhythm with intraventricular conduction delay, premature atrial complexes, nonspecific T-wave inversions in V1 and V2, no changes compared to the one from 06/04/2018. ASSESSMENT AND PLAN: The patient is an unfortunate 63-year-old gentleman with history of nonischemic cardiomyopathy with ejection fraction of 15% and history of COPD, presents with shortness of breath. He is dialysis dependent. The patient to be admitted to a monitored bed. Cardiology consultation requested with Dr. Mcneill and Nephrology consultation with Dr. Lemons. The patient will be ruled out for [place] troponin. The patient apparently has been noncompliant with his diet. He needs to adhere to a low-sodium, fluid-restricted diet. His potassium was high on admission, will need to discuss with Dr. Lemons if we can continue VINCE inhibitors on him. The patient will also be given pulmonary hygiene with inhalers and ask the scrap burner, Dr. Cantrell, to see him as well. The patient should be on DVT and ulcer prophylaxes. Luís Baumann M.D. DR: CALLY JOB#: [id number] CC:
[2018-06-24 08:00] VITALS: BP 140/100
[2018-06-24] MEDS ORDERED: Acetaminophen 500mg (ES) tab ORAL PRN (08:30)
[2018-06-24] MEDS ORDERED: Ipratropium 0.02% Inh Soln 2.5ml UD HHN PRN (08:30)
[2018-06-24] MEDS ORDERED: Heparin Sod 1000 units/ml 10ml IV SCH (08:30)
[2018-06-24] MEDS: Valproic Acid 250mg/5ml Liquid ORAL SCH ×2 (08:31→20:49)
[2018-06-24] MEDS: Calcium Acetate 667mg Tab ORAL SCH ×3 (08:32→18:00)
[2018-06-24] MEDS: Aspirin Baby 81mg ORAL SCH (08:32)
[2018-06-24] MEDS: Nephrovite tab (Rena-Vite) ORAL SCH (08:35)
[2018-06-24] MEDS: Heparin 5000 units/ml inj SUBQ SCH ×2 (08:55→20:50)
[2018-06-24] MEDS: Benazepril 10mg tab ORAL SCH (09:00)
[2018-06-24] MEDS ORDERED: Bumetanide 1mg tab ORAL SCH (09:00)
--- NOTE | 2018-06-24 09:06 | General Progress Note ---
Assessment/Plan Assessment/Plan chf cardiomyopathy renal failure pleural effusions dialysis diureses cards fup optimize failure meds dvt and ulcer prophylaxis Subjective Allergies: Coded Allergies: PENICILLINS (Verified Allergy, Unknown, 06/04/18) TOMATO (Unverified Allergy, Unknown, 06/22/18) Subjective overall better no cp Objective Last 24 Hour Vital Signs Date Time Temp Pulse Resp B/P (MAP) Pulse Ox O2 Delivery O2 Flow Rate FiO2 06/24/18 08:33 72 140/100 06/24/18 05:51 75 14 100 Room Air 3.0 32 06/24/18 05:38 78 14 100 Nasal Cannula 3.0 32 06/24/18 05:38 32 06/24/18 04:00 98.1 80 24 143/111 (122) 96 06/24/18 04:00 Nasal Cannula 2.0 06/24/18 03:43 77 06/24/18 03:13 Nasal Cannula 06/24/18 03:13 Nasal Cannula 06/24/18 00:00 Nasal Cannula 2.0 06/24/18 00:00 98.1 73 24 135/89 (104) 98 06/23/18 23:44 81 06/23/18 23:05 Nasal Cannula 06/23/18 23:05 Nasal Cannula 06/23/18 21:08 95 Nasal Cannula 2.0 28 06/23/18 21:08 Nasal Cannula 2.0 28 06/23/18 21:06 Nasal Cannula 06/23/18 21:06 Nasal Cannula 06/23/18 20:26 141 89/83 06/23/18 20:00 98.6 83 24 141/89 (106) 98 06/23/18 20:00 Nasal Cannula 2.0 06/23/18 19:25 93 06/23/18 16:00 97.7 64 20 138/99 (112) 99 06/23/18 16:00 Nasal Cannula 2.0 06/23/18 15:54 82 06/23/18 15:33 74 20 99 Nasal Cannula 3.0 32 06/23/18 15:13 79 20 98 Nasal Cannula 3.0 32 06/23/18 12:00 97.5 74 20 151/100 (117) 100 06/23/18 12:00 Nasal Cannula 2.0 06/23/18 12:00 93 06/23/18 11:18 77 22 99 Nasal Cannula 3.0 32 06/23/18 11:14 77 22 98 Nasal Cannula 3.0 32 06/23/18 10:56 Nasal Cannula 3.0 Intake and Output 06/23/18 06/24/18 19:00 07:00 Intake Total 550 ml 80 ml Output Total 3445 ml 350 ml Balance -2895 ml -270 ml Intake Oral 550 ml 80 ml Output Urine Total 445 ml 350 ml Hemodialysis UF 3000 ml # Bowel Movements 4 6 Laboratory Tests 06/23/18 13:45: Troponin I 0.024 06/24/18 02:45: Troponin I 0.043 Height (Feet): 5 Height (Inches): 10.00 Weight (Pounds): 182 General Appearance: WD/WN, no apparent distress Neck: supple Respiratory/Chest: decreased breath sounds, crackles/rales Abdomen: soft Objective 1 plus edema bilaterally Luís Baumann MD Jun 24, 2018 09:06
[2018-06-24 12:00] VITALS: BP 114/79
--- NOTE | 2018-06-24 12:54 | Nephrology Progress Note ---
Assessment/Plan Problem List: (1) ESRD on hemodialysis (2) CHF (congestive heart failure) (3) COPD exacerbation (4) Hyperkalemia Plan HD today yonathan inhibitors Bronchodilators Dc Bumex follow labs Subjective Subjective upset about fluid restriction Objective Objective Last 24 Hour Vital Signs Date Time Temp Pulse Resp B/P (MAP) Pulse Ox O2 Delivery O2 Flow Rate FiO2 06/24/18 10:10 79 16 99 Nasal Cannula 3.0 32 06/24/18 10:02 81 16 100 Nasal Cannula 3.0 32 06/24/18 10:02 32 06/24/18 09:00 140/100 06/24/18 09:00 Nasal Cannula 2.0 06/24/18 08:33 72 140/100 06/24/18 08:00 73 06/24/18 08:00 97.8 72 20 140/100 (113) 96 06/24/18 07:40 Nasal Cannula 06/24/18 07:40 96 Nasal Cannula 2.0 28 06/24/18 07:40 Nasal Cannula 06/24/18 07:40 Nasal Cannula 2.0 28 06/24/18 05:51 75 14 100 Room Air 3.0 32 06/24/18 05:38 78 14 100 Nasal Cannula 3.0 32 06/24/18 05:38 32 06/24/18 04:00 98.1 80 24 143/111 (122) 96 06/24/18 04:00 Nasal Cannula 2.0 06/24/18 03:43 77 06/24/18 03:13 Nasal Cannula 06/24/18 03:13 Nasal Cannula 06/24/18 00:00 Nasal Cannula 2.0 06/24/18 00:00 98.1 73 24 135/89 (104) 98 06/23/18 23:44 81 06/23/18 23:05 Nasal Cannula 06/23/18 23:05 Nasal Cannula 06/23/18 21:08 95 Nasal Cannula 2.0 28 06/23/18 21:08 Nasal Cannula 2.0 28 06/23/18 21:06 Nasal Cannula 06/23/18 21:06 Nasal Cannula 06/23/18 20:26 141 89/83 06/23/18 20:00 98.6 83 24 141/89 (106) 98 06/23/18 20:00 Nasal Cannula 2.0 06/23/18 19:25 93 06/23/18 16:00 97.7 64 20 138/99 (112) 99 06/23/18 16:00 Nasal Cannula 2.0 06/23/18 15:54 82 06/23/18 15:33 74 20 99 Nasal Cannula 3.0 32 06/23/18 15:13 79 20 98 Nasal Cannula 3.0 32 Intake and Output 06/23/18 06/24/18 19:00 07:00 Intake Total 550 ml 80 ml Output Total 3445 ml 350 ml Balance -2895 ml -270 ml Intake Oral 550 ml 80 ml Output Urine Total 445 ml 350 ml Hemodialysis UF 3000 ml # Bowel Movements 4 6 Laboratory Tests 06/23/18 13:45: Troponin I 0.024 06/24/18 02:45: Troponin I 0.043 Height (Feet): 5 Height (Inches): 10.00 Weight (Pounds): 182 Cardiovascular: normal rate Respiratory/Chest: lungs clear Extremities: moderate edema Robert Lemons MD Jun 24, 2018 12:54
[2018-06-24] MEDS: ALPRAZolam 0.25mg tab ORAL PRN (13:52)
--- NOTE | 2018-06-24 13:57 | Consultation ---
History of Present Illness General Chief Complaint: Chest Pain Present Illness HPI 63-year-old male, who was just recently admitted to [facility] for shortness of breath. the pt has hx of bipolar and anxiety d/o. the pt is on Xanax. the pt stated that he has constant anxiety and panic attacks. Allergies: Coded Allergies: PENICILLINS (Verified Allergy, Unknown, 06/04/18) TOMATO (Unverified Allergy, Unknown, 06/22/18) Medication History Scheduled Albuterol Sulfate* (Albuterol Sulfate Hhn*), 3 ML INH Q4H, (Reported) Aspirin* (Aspirin*), 81 MG ORAL DAILY, (Reported) Azithromycin (Azithromycin), 1,000 MG ORAL DAILY, (Reported) Benazepril Hcl (Benazepril Hcl), 10 MG ORAL DAILY, (Reported) Bumetanide* (Bumetanide*), 2 MG ORAL TID, (Reported) Calcium Acetate (Calcium Acetate), 1,334 MG PO TID, (Reported) Calcium Acetate (Calcium Acetate), 667 MG PO THREE TIMES A DAY, (Reported) Carvedilol (Coreg), 3.125 MG ORAL EVERY 12 HOURS, (Reported) Darbepoetin Naeem In Polysorbat (Aranesp), 100 MCG IV ONCE A WEEK, (Reported) Divalproex Sodium (Depakote), 500 MG PO BID, (Reported) Divalproex Sodium* (Depakote*), 750 MG PO Q12HR, (Reported) Ergocalciferol (Vitamin D2)* (Vitamin D*), 50,000 UNIT ORAL ONCE A WEEK, ( Reported) Folic Acid (Folic Acid), 1 MG PO DAILY, (Reported) Heparin Sod (Porcine) (Heparin Sodium*), 5,000 UNITS SUBQ EVERY 8 HOURS, ( Reported) Pantoprazole* (Pantoprazole*), 40 MG ORAL DAILY, (Reported) Prednisone* (Prednisone*), 40 MG ORAL DAILY, (Reported) Sevelamer Hcl (Renagel), 800 MG ORAL THREE TIMES A DAY, (Reported) Silver Sulfadiazine (Silvadene), 20 GM TP Q12H, (Reported) Scheduled PRN Acetaminophen* (Tylenol Extra Strength*), 500 MG ORAL Q6H PRN for For Pain, ( Reported) Haloperidol Lactate (Haloperidol Lactate), 2.5 MG IM Q6H PRN for AGITATION, ( Reported) Hydralazine Hcl (Hydralazine Hcl), 10 MG IVP Q6HR PRN for BLOOD PRESSURE, ( Reported) Ipratropium Sebree 0.5MG/2.5ML (Ipratropium Sebree 0.5MG/2.5ML), 0.5 MG HHN Q4H PRN for Shortness of Breath, (Reported) Petrolatum,White (Aquaphor), 99 GM TP BID PRN for SKIN, (Reported) Patient History Limited by: medical condition History Provided By: Patient Healthcare decision maker Resuscitation status Full Code Advanced Directive on File Past Medical/Surgical History Past Medical/Surgical History: (1) Hemodialysis patient (2) Psychiatric disorder (3) Acute decompensated heart failure (4) Acute bronchitis (5) Chest pain (6) Hyperkalemia (7) Pleural effusion (8) ESRD on hemodialysis (9) CHF (congestive heart failure) (10) COPD exacerbation Review of Systems Psychiatric: Reports: anxiety, depressed feelings Physical Exam General Appearance: alert, moderate distress Neurologic: oriented x 3, responsive, depressed affect Last 24 Hour Vital Signs Date Time Temp Pulse Resp B/P (MAP) Pulse Ox O2 Delivery O2 Flow Rate FiO2 06/24/18 10:10 79 16 99 Nasal Cannula 3.0 32 06/24/18 10:02 81 16 100 Nasal Cannula 3.0 32 06/24/18 10:02 32 06/24/18 09:00 140/100 06/24/18 09:00 Nasal Cannula 2.0 06/24/18 08:33 72 140/100 06/24/18 08:00 73 06/24/18 08:00 97.8 72 20 140/100 (113) 96 06/24/18 07:40 Nasal Cannula 06/24/18 07:40 96 Nasal Cannula 2.0 28 06/24/18 07:40 Nasal Cannula 06/24/18 07:40 Nasal Cannula 2.0 28 06/24/18 05:51 75 14 100 Room Air 3.0 32 06/24/18 05:38 78 14 100 Nasal Cannula 3.0 32 06/24/18 05:38 32 06/24/18 04:00 98.1 80 24 143/111 (122) 96 06/24/18 04:00 Nasal Cannula 2.0 06/24/18 03:43 77 06/24/18 03:13 Nasal Cannula 06/24/18 03:13 Nasal Cannula 06/24/18 00:00 Nasal Cannula 2.0 06/24/18 00:00 98.1 73 24 135/89 (104) 98 06/23/18 23:44 81 06/23/18 23:05 Nasal Cannula 06/23/18 23:05 Nasal Cannula 06/23/18 21:08 95 Nasal Cannula 2.0 28 06/23/18 21:08 Nasal Cannula 2.0 28 06/23/18 21:06 Nasal Cannula 06/23/18 21:06 Nasal Cannula 06/23/18 20:26 141 89/83 06/23/18 20:00 98.6 83 24 141/89 (106) 98 06/23/18 20:00 Nasal Cannula 2.0 06/23/18 19:25 93 06/23/18 16:00 97.7 64 20 138/99 (112) 99 06/23/18 16:00 Nasal Cannula 2.0 06/23/18 15:54 82 06/23/18 15:33 74 20 99 Nasal Cannula 3.0 32 06/23/18 15:13 79 20 98 Nasal Cannula 3.0 32 Intake and Output 06/23/18 06/24/18 19:00 07:00 Intake Total 550 ml 80 ml Output Total 3445 ml 350 ml Balance -2895 ml -270 ml Intake Oral 550 ml 80 ml Output Urine Total 445 ml 350 ml Hemodialysis UF 3000 ml # Bowel Movements 4 6 Laboratory Tests Test 06/24/18 02:45 Troponin I 0.043 ng/mL (0.000-0.056) Height (Feet): 5 Height (Inches): 10.00 Weight (Pounds): 182 Medications Current Medications Medications (Trade) Dose Ordered Sig/Cynthia Route PRN Reason Start Time Stop Time Status Last Admin Dose Admin Acetaminophen (Tylenol) 500 mg Q6H PRN ORAL For Pain 06/24/18 08:30 07/23/18 02:29 Albuterol Sulfate (Proventil) 2.5 mg Q4HRT HHN 06/24/18 11:00 06/28/18 08:29 Alprazolam (Xanax) 0.5 mg Q6H PRN ORAL For Anxiety 06/24/18 13:43 07/01/18 13:42 06/24/18 13:52 Aspirin (ASA) 81 mg DAILY ORAL 06/24/18 09:00 07/23/18 08:59 06/24/18 08:32 Benazepril HCl (Lotensin) 10 mg DAILY ORAL 06/24/18 09:00 07/23/18 08:59 Calcium Acetate (Phoslo) 1,334 mg TID ORAL 06/24/18 09:00 07/23/18 08:59 06/24/18 08:32 Carvedilol (Coreg) 3.125 mg EVERY 12 HOURS ORAL 06/24/18 09:00 07/23/18 08:59 Chlorhexidine Gluconate (Antonia-Hex 2%) 1 applic DAILY@2000 TOPIC 06/24/18 20:00 07/23/18 19:59 Folic Acid (Folate) 1 mg DAILY ORAL 06/24/18 09:00 07/23/18 08:59 06/24/18 09:00 Heparin Sodium (Porcine) (Heparin 5000 units/ml) 5,000 units EVERY 12 HOURS SUBQ 06/24/18 09:00 07/23/18 08:59 06/24/18 08:55 Heparin Sodium (Porcine) (Heparin Sod 1000 units/ml 10ml) 500 unit ONCE IV 06/24/18 08:30 06/24/18 20:30 Hydralazine HCl (Apresoline) 10 mg Q6HR PRN IV BLOOD PRESSURE 06/24/18 12:00 07/23/18 02:29 UNV Ipratropium Sebree (Atrovent) 500 mcg Q4H PRN HHN Shortness of Breath 06/24/18 08:30 06/28/18 08:29 Pantoprazole (Protonix) 40 mg ACBREAKFAST ORAL 06/24/18 09:00 07/24/18 08:59 06/24/18 08:42 Sodium Chloride 1,000 ml @ 500 mls/hr Q2H PRN IVLG sbp<90 during hd 06/24/18 08:30 06/24/18 20:30 Valproic Acid (Depakene) 750 mg EVERY 12 HOURS ORAL 06/24/18 09:00 07/23/18 09:29 06/24/18 08:31 Vitamin B Complex/ Vit C/Folic Acid (Nephrovite) 1 tab DAILY ORAL 06/24/18 09:00 07/23/18 14:29 06/24/18 08:35 Assessment/Plan Problem List: (1) Bipolar 1 disorder ICD Codes: F31.9 - Bipolar disorder, unspecified SNOMED: 699100986 (2) Anxiety disorder ICD Codes: F41.9 - Anxiety disorder, unspecified SNOMED: 570696698 Status: stable Assessment/Plan [facility]. Isaiah Dudley MD Jun 24, 2018 13:57
[2018-06-24 16:00] VITALS: BP 140/104
--- NOTE | 2018-06-24 17:48 | Cardiology Report ---
APPROVED REPORT EKG Measurement Heart [id number] Normal sinus rhythm Nonspecific intraventricular block Abnormal ECG
[2018-06-24 20:00] VITALS: BP 148/100
--- NOTE | 2018-06-24 20:18 | Cardiology Progress Note ---
Assessment/Plan Assessment/Plan 1. Atypical chest pain. 2. Cardiomyopathy systolic, felt to be probably nonischemic. 3. End-stage renal disease, on hemodialysis. 4. Hyperkalemia. 5. Chronic obstructive pulmonary disease. 6. Dietary indiscretion. 7. Recent pneumonia fludi / na restriction acei low dose increase if and only when ok with dr stock isordil hydralzien may need to be used has refused icd ischmei eval no reversibility recently trop neg tele sinus Subjective Cardiovascular: Denies: chest pain Respiratory: Reports: cough - min , shortness of breath - beter Gastrointestinal/Abdominal: Reports: abdominal pain Genitourinary: Reports: no symptoms Objective Last 24 Hour Vital Signs Date Time Temp Pulse Resp B/P (MAP) Pulse Ox O2 Delivery O2 Flow Rate FiO2 06/24/18 19:35 89 18 99 Nasal Cannula 2.0 28 06/24/18 19:34 28 06/24/18 19:26 89 18 95 Nasal Cannula 2.0 28 06/24/18 19:26 Nasal Cannula 2.0 28 06/24/18 19:24 95 Nasal Cannula 2.0 28 06/24/18 16:00 97.2 76 20 140/104 (116) 98 06/24/18 16:00 80 06/24/18 15:00 Nasal Cannula 06/24/18 15:00 Nasal Cannula 06/24/18 12:00 81 06/24/18 12:00 97.6 63 20 114/79 (91) 100 06/24/18 10:10 79 16 99 Nasal Cannula 3.0 32 06/24/18 10:02 81 16 100 Nasal Cannula 3.0 32 06/24/18 10:02 32 06/24/18 09:00 140/100 06/24/18 09:00 Nasal Cannula 2.0 06/24/18 08:33 72 140/100 06/24/18 08:00 73 06/24/18 08:00 97.8 72 20 140/100 (113) 96 06/24/18 07:40 Nasal Cannula 06/24/18 07:40 96 Nasal Cannula 2.0 28 06/24/18 07:40 Nasal Cannula 06/24/18 07:40 Nasal Cannula 2.0 28 06/24/18 05:51 75 14 100 Room Air 3.0 32 06/24/18 05:38 78 14 100 Nasal Cannula 3.0 32 06/24/18 05:38 32 06/24/18 04:00 98.1 80 24 143/111 (122) 96 06/24/18 04:00 Nasal Cannula 2.0 06/24/18 03:43 77 06/24/18 03:13 Nasal Cannula 06/24/18 03:13 Nasal Cannula 06/24/18 00:00 Nasal Cannula 2.0 06/24/18 00:00 98.1 73 24 135/89 (104) 98 06/23/18 23:44 81 06/23/18 23:05 Nasal Cannula 06/23/18 23:05 Nasal Cannula 06/23/18 21:08 95 Nasal Cannula 2.0 28 06/23/18 21:08 Nasal Cannula 2.0 28 06/23/18 21:06 Nasal Cannula 06/23/18 21:06 Nasal Cannula 06/23/18 20:26 141 89/83 General Appearance: no apparent distress, alert Neck: supple Cardiovascular: normal rate Respiratory/Chest: crackles/rales - left side Abdomen: normal bowel sounds, non tender Extremities: no swelling Intake and Output 06/23/18 06/24/18 18:59 06:59 Intake Total 550 ml 80 ml Output Total 3445 ml 350 ml Balance -2895 ml -270 ml Intake Oral 550 ml 80 ml Output Urine Total 445 ml 350 ml Hemodialysis UF 3000 ml # Bowel Movements 4 6 Laboratory Tests Test 06/24/18 02:45 Troponin I 0.043 ng/mL (0.000-0.056) Microbiology Date/Time Source Procedure Growth Status 06/22/18 21:20 Rectum Received Baldo Mcneill MD Jun 24, 2018 20:18
[2018-06-24] MEDS: Dyna-Hex 2% Top Sol 2oz TOPIC SCH (20:47)
--- NOTE | 2018-06-24 22:26 | Consultation ---
History of Present Illness General Date patient seen: Jun 24, 2018 Chief Complaint: Chest Pain Reason for Consultation: large inguinal hernia Present Illness HPI 63 year old male with multiple medical comorbidities currently and extensive cardiac history currently admitted for medical care and management. on admission noted to have huge inguinal hernia extending into scrotum. complains of discomfort. surgery called to evaluate. patient seen, chart reviewed, patient examined. states he has had large inguinal hernia for years. progressively worsening. has wanted to have it fixed for some time now but was told it is unsafe. no obstructive symptoms. states causing feeling of discomfort and heaviness in groin. Allergies: Coded Allergies: PENICILLINS (Verified Allergy, Unknown, 06/04/18) TOMATO (Unverified Allergy, Unknown, 06/22/18) Medication History Scheduled Albuterol Sulfate* (Albuterol Sulfate Hhn*), 3 ML INH Q4H, (Reported) Aspirin* (Aspirin*), 81 MG ORAL DAILY, (Reported) Azithromycin (Azithromycin), 1,000 MG ORAL DAILY, (Reported) Benazepril Hcl (Benazepril Hcl), 10 MG ORAL DAILY, (Reported) Bumetanide* (Bumetanide*), 2 MG ORAL TID, (Reported) Calcium Acetate (Calcium Acetate), 1,334 MG PO TID, (Reported) Calcium Acetate (Calcium Acetate), 667 MG PO THREE TIMES A DAY, (Reported) Carvedilol (Coreg), 3.125 MG ORAL EVERY 12 HOURS, (Reported) Darbepoetin Naeem In Polysorbat (Aranesp), 100 MCG IV ONCE A WEEK, (Reported) Divalproex Sodium (Depakote), 500 MG PO BID, (Reported) Divalproex Sodium* (Depakote*), 750 MG PO Q12HR, (Reported) Ergocalciferol (Vitamin D2)* (Vitamin D*), 50,000 UNIT ORAL ONCE A WEEK, ( Reported) Folic Acid (Folic Acid), 1 MG PO DAILY, (Reported) Heparin Sod (Porcine) (Heparin Sodium*), 5,000 UNITS SUBQ EVERY 8 HOURS, ( Reported) Pantoprazole* (Pantoprazole*), 40 MG ORAL DAILY, (Reported) Prednisone* (Prednisone*), 40 MG ORAL DAILY, (Reported) Sevelamer Hcl (Renagel), 800 MG ORAL THREE TIMES A DAY, (Reported) Silver Sulfadiazine (Silvadene), 20 GM TP Q12H, (Reported) Scheduled PRN Acetaminophen* (Tylenol Extra Strength*), 500 MG ORAL Q6H PRN for For Pain, ( Reported) Haloperidol Lactate (Haloperidol Lactate), 2.5 MG IM Q6H PRN for AGITATION, ( Reported) Hydralazine Hcl (Hydralazine Hcl), 10 MG IVP Q6HR PRN for BLOOD PRESSURE, ( Reported) Ipratropium Bison 0.5MG/2.5ML (Ipratropium Bison 0.5MG/2.5ML), 0.5 MG HHN Q4H PRN for Shortness of Breath, (Reported) Petrolatum,White (Aquaphor), 99 GM TP BID PRN for SKIN, (Reported) Patient History History Provided By: Patient, Medical Record, PMD Healthcare decision maker Resuscitation status Full Code Advanced Directive on File Past Medical/Surgical History Past Medical/Surgical History: (1) Right inguinal hernia (2) Hyperkalemia (3) Pleural effusion (4) ESRD on hemodialysis (5) CHF (congestive heart failure) (6) COPD exacerbation (7) Psychiatric disorder (8) Acute bronchitis (9) Chest pain (10) Hemodialysis patient (11) Acute decompensated heart failure (12) Anxiety disorder (13) Bipolar 1 disorder Review of Systems All Other Systems: negative except mentioned in HPI Physical Exam General Appearance: no apparent distress, alert Lines, tubes and drains: other HEENT: mucous membranes moist Neck: normal inspection Respiratory/Chest: normal breath sounds, no respiratory distress Cardiovascular/Chest: normal rate Abdomen: soft, no organomegaly, no mass, other - large right inguinal hernia extending into scrotum Extremities: normal inspection Skin Exam: warm/dry Neurologic: alert, responsive Last 24 Hour Vital Signs Date Time Temp Pulse Resp B/P (MAP) Pulse Ox O2 Delivery O2 Flow Rate FiO2 06/24/18 20:47 80 148/100 06/24/18 20:00 97.7 80 18 148/100 (116) 96 06/24/18 19:35 89 18 99 Nasal Cannula 2.0 28 06/24/18 19:34 28 06/24/18 19:26 89 18 95 Nasal Cannula 2.0 28 06/24/18 19:26 Nasal Cannula 2.0 28 06/24/18 19:24 95 Nasal Cannula 2.0 28 06/24/18 16:00 97.2 76 20 140/104 (116) 98 06/24/18 16:00 80 06/24/18 15:00 Nasal Cannula 06/24/18 15:00 Nasal Cannula 06/24/18 12:00 81 06/24/18 12:00 97.6 63 20 114/79 (91) 100 06/24/18 10:10 79 16 99 Nasal Cannula 3.0 32 06/24/18 10:02 81 16 100 Nasal Cannula 3.0 32 06/24/18 10:02 32 06/24/18 09:00 140/100 06/24/18 09:00 Nasal Cannula 2.0 06/24/18 08:33 72 140/100 06/24/18 08:00 73 06/24/18 08:00 97.8 72 20 140/100 (113) 96 06/24/18 07:40 Nasal Cannula 06/24/18 07:40 96 Nasal Cannula 2.0 28 06/24/18 07:40 Nasal Cannula 06/24/18 07:40 Nasal Cannula 2.0 28 06/24/18 05:51 75 14 100 Room Air 3.0 32 06/24/18 05:38 78 14 100 Nasal Cannula 3.0 32 06/24/18 05:38 32 06/24/18 04:00 98.1 80 24 143/111 (122) 96 06/24/18 04:00 Nasal Cannula 2.0 06/24/18 03:43 77 06/24/18 03:13 Nasal Cannula 06/24/18 03:13 Nasal Cannula 06/24/18 00:00 Nasal Cannula 2.0 06/24/18 00:00 98.1 73 24 135/89 (104) 98 06/23/18 23:44 81 06/23/18 23:05 Nasal Cannula 06/23/18 23:05 Nasal Cannula Intake and Output 06/23/18 06/24/18 18:59 06:59 Intake Total 550 ml 80 ml Output Total 3445 ml 350 ml Balance -2895 ml -270 ml Intake Oral 550 ml 80 ml Output Urine Total 445 ml 350 ml Hemodialysis UF 3000 ml # Bowel Movements 4 6 Laboratory Tests Test 06/24/18 02:45 Troponin I 0.043 ng/mL (0.000-0.056) Height (Feet): 5 Height (Inches): 10.00 Weight (Pounds): 182 Medications Current Medications Medications (Trade) Dose Ordered Sig/Cynthia Route PRN Reason Start Time Stop Time Status Last Admin Dose Admin Acetaminophen (Tylenol) 500 mg Q6H PRN ORAL For Pain 06/24/18 08:30 07/23/18 02:29 06/24/18 20:48 Albuterol Sulfate (Proventil) 2.5 mg Q4HRT HHN 06/24/18 11:00 06/28/18 08:29 06/24/18 19:24 Alprazolam (Xanax) 0.5 mg Q6H PRN ORAL For Anxiety 06/24/18 13:43 07/01/18 13:42 06/24/18 13:52 Aspirin (ASA) 81 mg DAILY ORAL 06/24/18 09:00 07/23/18 08:59 06/24/18 08:32 Benazepril HCl (Lotensin) 10 mg DAILY ORAL 06/24/18 09:00 07/23/18 08:59 Calcium Acetate (Phoslo) 1,334 mg TID ORAL 06/24/18 09:00 07/23/18 08:59 06/24/18 18:00 Carvedilol (Coreg) 3.125 mg EVERY 12 HOURS ORAL 06/24/18 09:00 07/23/18 08:59 06/24/18 20:47 Chlorhexidine Gluconate (Antonia-Hex 2%) 1 applic DAILY@2000 TOPIC 06/24/18 20:00 07/23/18 19:59 06/24/18 20:47 Folic Acid (Folate) 1 mg DAILY ORAL 06/24/18 09:00 07/23/18 08:59 06/24/18 09:00 Heparin Sodium (Porcine) (Heparin 5000 units/ml) 5,000 units EVERY 12 HOURS SUBQ 06/24/18 09:00 07/23/18 08:59 06/24/18 20:50 Hydralazine HCl (Apresoline) 10 mg Q6H PRN IV BLOOD PRESSURE 06/24/18 15:45 07/24/18 15:44 Ipratropium Bison (Atrovent) 500 mcg Q4H PRN HHN Shortness of Breath 06/24/18 08:30 06/28/18 08:29 Pantoprazole (Protonix) 40 mg ACBREAKFAST ORAL 06/24/18 09:00 07/24/18 08:59 06/24/18 08:42 Valproic Acid (Depakene) 750 mg EVERY 12 HOURS ORAL 06/24/18 09:00 07/23/18 09:29 06/24/18 20:49 Vitamin B Complex/ Vit C/Folic Acid (Nephrovite) 1 tab DAILY ORAL 06/24/18 09:00 07/23/18 14:29 06/24/18 08:35 Assessment/Plan Problem List: (1) Right inguinal hernia ICD Codes: K40.90 - Unilateral inguinal hernia, without obstruction or gangrene , not specified as recurrent SNOMED: 254571895 (2) Incarcerated right inguinal hernia Assessment & Plan: large right inguinal hernia with content into scrotum. contents mainly bowel and unable to fully reduce hence fairly incarcerated into sac but no signs or symptoms of strangulation or obstructive symptoms. non tender on exam. fairly extensive though. no umbilical hernia. no clear left sided hernia has had for years. given cardiac history and current condition would not recommend surgery unless becomes strangulated or life threatening. he has no obstructive symptoms and has had this for years. emergency surgery would be with very high morbidity and mortality. elective surgery would be as well but if interested I am happy to see him in the office and discuss this with patient and multidisciplinary team. okay for diet will monitor clinically while in hospital thank you for allowing me to participate in patients care ICD Codes: K40.30 - Unilateral inguinal hernia, with obstruction, without gangrene, not specified as recurrent SNOMED: [id number] Harmeet Benson Jun 24, 2018 22:26
--- NOTE | 2018-06-24 23:28 | Pulmonology Progress Note ---
Assessment/Plan Assessment/Plan Pulmonary Consultation Note HPI 63-year-old male with a history of COPD, Cardiomyopathy, CHF, hypertension, ESRD on Friday hemodialysis, presents with chest pain while sitting at his [facility] facility, he reports is midsternal, with decision shortness of breath, reports the pain was a gnawing type pain, nonradiating, his given aspirin and nitroglycerin prior to arrival, he does report feeling much improvement in his pain after these interventions. Eyes hemoptysis cough, syncope, any other symptoms, and reports his last dialysis session with Friday he is due for his next one tomorrow. Less SOB, no chest pain s/p HD Allergies: Coded Allergies: PENICILLINS (Verified Allergy, Unknown, 06/04/18) TOMATO (Unverified Allergy, Unknown, 06/22/18) Past Medical History: COPD, Cardiomyopathy, CHF, hypertension, ESRD All Other Systems: negative except mentioned in HPI Physical Exam Vital Signs Noted Date Time Temp Pulse Resp B/P (MAP) Pulse Ox O2 Delivery O2 Flow Rate FiO2 06/22/18 19:28 69 18 Room Air 06/22/18 19:28 97.5 109/75 95 General Appearance: no apparent distress, alert, non-toxic Head: normocephalic Eyes: bilateral eye normal inspection, bilateral eye PERRL, bilateral eye EOMI ENT: normal ENT inspection, hearing grossly normal, normal pharynx, no angioedema, normal voice, moist mucus membranes Neck: normal inspection, full range of motion, supple, supple/symm/no masses Respiratory: chest non-tender, lungs clear, normal breath sounds, chest symmetrical, palpation of chest normal Cardiovascular #1: normal peripheral pulses, regular rate, rhythm, other - R chest vascath site c/d/i, no erythema/warmth/breakdown Cardiovascular #2: 2+ radial (R), 2+ radial (L) Gastrointestinal: normal inspection, non tender, soft, no mass, no guarding, no rebound Rectal: deferred Genitourinary: normal inspection, no CVA tenderness Musculoskeletal: back normal, gait/station normal, normal range of motion, non- tender, no calf tenderness Neurologic: alert, responsive, classification control clerk III-XII nml as tested, motor strength/tone normal, sensory intact, speech normal Psychiatric: judgement/insight normal, memory normal, mood/affect normal Skin: normal color, no rash, warm/dry, normal turgor Lymphatic: no adenopathy Impression: ESRD on hemodialysis Volume overload on CXR Pleural effusion 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 Hyperkalemia Plan Dialyse per Renal HHN O2 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 Monitor labs EKG Time: 19:21 EP Interpretation: no stemi Rate: normal Rhythm: NSR ST Segments: no acute changes Chest X-Ray no consolidation, no pneumothorax, other - L sided effusion Impression: Other - L sided effusion, pulm vasc congestion Subjective ROS Limited/Unobtainable: No Allergies: Coded Allergies: PENICILLINS (Verified Allergy, Unknown, 06/04/18) TOMATO (Unverified Allergy, Unknown, 06/22/18) Objective Last 24 Hour Vital Signs Date Time Temp Pulse Resp B/P (MAP) Pulse Ox O2 Delivery O2 Flow Rate FiO2 06/24/18 22:51 Nasal Cannula 2.0 28 06/24/18 22:51 Nasal Cannula 2.0 28 06/24/18 21:00 Nasal Cannula 2.0 06/24/18 20:47 80 148/100 06/24/18 20:00 80 06/24/18 20:00 97.7 80 18 148/100 (116) 96 06/24/18 19:35 89 18 99 Nasal Cannula 2.0 28 06/24/18 19:34 28 06/24/18 19:26 89 18 95 Nasal Cannula 2.0 28 06/24/18 19:26 Nasal Cannula 2.0 28 06/24/18 19:24 95 Nasal Cannula 2.0 28 06/24/18 16:00 97.2 76 20 140/104 (116) 98 06/24/18 16:00 80 06/24/18 15:00 Nasal Cannula 06/24/18 15:00 Nasal Cannula 06/24/18 12:00 81 06/24/18 12:00 97.6 63 20 114/79 (91) 100 06/24/18 10:10 79 16 99 Nasal Cannula 3.0 32 06/24/18 10:02 81 16 100 Nasal Cannula 3.0 32 06/24/18 10:02 32 06/24/18 09:00 140/100 06/24/18 09:00 Nasal Cannula 2.0 06/24/18 08:33 72 140/100 06/24/18 08:00 73 12/19/18 08:00 97.8 72 20 140/100 (113) 96 06/24/18 07:40 Nasal Cannula 06/24/18 07:40 96 Nasal Cannula 2.0 28 06/24/18 07:40 Nasal Cannula 06/24/18 07:40 Nasal Cannula 2.0 28 06/24/18 05:51 75 14 100 Room Air 3.0 32 06/24/18 05:38 78 14 100 Nasal Cannula 3.0 32 06/24/18 05:38 32 06/24/18 04:00 98.1 80 24 143/111 (122) 96 06/24/18 04:00 Nasal Cannula 2.0 06/24/18 03:43 77 06/24/18 03:13 Nasal Cannula 06/24/18 03:13 Nasal Cannula 06/24/18 00:00 Nasal Cannula 2.0 06/24/18 00:00 98.1 73 24 135/89 (104) 98 06/23/18 23:44 81 Intake and Output 06/23/18 06/24/18 18:59 06:59 Intake Total 550 ml 80 ml Output Total 3445 ml 350 ml Balance -2895 ml -270 ml Intake Oral 550 ml 80 ml Output Urine Total 445 ml 350 ml Hemodialysis UF 3000 ml # Bowel Movements 4 6 Microbiology Date/Time Source Procedure Growth Status 06/22/18 21:20 Rectum Received Laboratory Tests 06/24/18 02:45: Troponin I 0.043 Current Medications Medications (Trade) Dose Ordered Sig/Cynthia Route PRN Reason Start Time Stop Time Status Last Admin Dose Admin Acetaminophen (Tylenol) 500 mg Q6H PRN ORAL For Pain 06/24/18 08:30 07/23/18 02:29 06/24/18 20:48 Albuterol Sulfate (Proventil) 2.5 mg Q4HRT HHN 06/24/18 11:00 06/28/18 08:29 06/24/18 19:24 Alprazolam (Xanax) 0.5 mg Q6H PRN ORAL For Anxiety 06/24/18 13:43 07/01/18 13:42 06/24/18 13:52 Aspirin (ASA) 81 mg DAILY ORAL 06/24/18 09:00 07/23/18 08:59 06/24/18 08:32 Benazepril HCl (Lotensin) 10 mg DAILY ORAL 06/24/18 09:00 07/23/18 08:59 Calcium Acetate (Phoslo) 1,334 mg TID ORAL 06/24/18 09:00 07/23/18 08:59 06/24/18 18:00 Carvedilol (Coreg) 3.125 mg EVERY 12 HOURS ORAL 06/24/18 09:00 07/23/18 08:59 06/24/18 20:47 Chlorhexidine Gluconate (Antonia-Hex 2%) 1 applic DAILY@2000 TOPIC 06/24/18 20:00 07/23/18 19:59 06/24/18 20:47 Folic Acid (Folate) 1 mg DAILY ORAL 06/24/18 09:00 07/23/18 08:59 06/24/18 09:00 Heparin Sodium (Porcine) (Heparin 5000 units/ml) 5,000 units EVERY 12 HOURS SUBQ 06/24/18 09:00 07/23/18 08:59 06/24/18 20:50 Hydralazine HCl (Apresoline) 10 mg Q6H PRN IV BLOOD PRESSURE 06/24/18 15:45 07/24/18 15:44 Ipratropium [place] (Atrovent) 500 mcg Q4H PRN HHN Shortness of Breath 06/24/18 08:30 06/28/18 08:29 Pantoprazole (Protonix) 40 mg ACBREAKFAST ORAL 06/24/18 09:00 07/24/18 08:59 06/24/18 08:42 Valproic Acid (Depakene) 750 mg EVERY 12 HOURS ORAL 06/24/18 09:00 07/23/18 09:29 06/24/18 20:49 Vitamin B Complex/ Vit C/Folic Acid (Nephrovite) 1 tab DAILY ORAL 06/24/18 09:00 07/23/18 14:29 06/24/18 08:35 Gagan Yousif MD Jun 24, 2018 23:28
[2018-06-25] VITALS: BP 131/94
[2018-06-25] MEDS: Albuterol ud Inhalation HHN SCH ×6 (02:24→23:00)
[2018-06-25 04:00] VITALS: BP 139/94
[2018-06-25] MEDS: ALPRAZolam 0.25mg tab ORAL PRN ×2 (06:23→18:38)
[2018-06-25 06:41] LABS: BASOPHILS % (AUTO) 1.8 % (0.0-2.0); EOSINOPHILS % (AUTO) 4.6 % (0.0-3.0); HEMATOCRIT 39.4 % (42.0-52.0); HEMOGLOBIN 12.6 G/DL (14.2-18.0); MEAN CORPUSCULAR VOLUME 103 FL (80-99); MONOCYTES % (AUTO) 8.5 % (1.0-10.0); NEUTROPHILS % (AUTO) 62.2 % (45.0-75.0); PLATELET COUNT 172 K/UL (150-450); RED BLOOD COUNT 3.85 M/UL (4.70-6.10); RED CELL DISTRIBUTION WIDTH 17.4 % (11.6-14.8); WHITE BLOOD COUNT 4.9 K/UL (4.8-10.8)
[2018-06-25 07:18] LABS: ANION GAP 10 mmol/L (5-15); BLOOD UREA NITROGEN 54 mg/dL (7-18); CALCIUM 8.5 MG/DL (8.5-10.1); CARBON DIOXIDE 26 MMOL/L (21-32); CHLORIDE 103 MMOL/L (98-107); CREATININE 5.4 MG/DL (0.55-1.30); POTASSIUM 4.6 MMOL/L (3.5-5.1); SODIUM 139 MMOL/L (136-145)
[2018-06-25 08:00] VITALS: BP 128/79
[2018-06-25] MEDS: Nephrovite tab (Rena-Vite) ORAL SCH (08:24)
[2018-06-25] MEDS: Aspirin Baby 81mg ORAL SCH (08:24)
[2018-06-25] MEDS: Valproic Acid 250mg/5ml Liquid ORAL SCH ×2 (08:24→21:33)
[2018-06-25] MEDS: Calcium Acetate 667mg Tab ORAL SCH ×3 (08:24→18:29)
[2018-06-25] MEDS: Benazepril 10mg tab ORAL SCH (08:33)
[2018-06-25] MEDS: Heparin 5000 units/ml inj SUBQ SCH ×2 (08:45→21:29)
--- NOTE | 2018-06-25 11:33 | Nephrology Progress Note ---
Assessment/Plan Problem List: (1) ESRD on hemodialysis (2) CHF (congestive heart failure) (3) COPD exacerbation (4) Hyperkalemia (5) Inguinal hernia Plan HD tomorrow yonathan inhibitors ok to increase dose Bronchodilators follow labs Subjective Subjective feels ok Objective Objective Last 24 Hour Vital Signs Date Time Temp Pulse Resp B/P (MAP) Pulse Ox O2 Delivery O2 Flow Rate FiO2 06/25/18 11:23 78 20 98 Nasal Cannula 3.0 32 06/25/18 11:17 76 20 97 Nasal Cannula 2.0 28 06/25/18 09:00 Nasal Cannula 2.0 Nasal Cannula 2.0 06/25/18 08:33 96 128/79 06/25/18 08:33 128/79 06/25/18 08:00 89 06/25/18 08:00 97.3 70 21 128/79 (95) 96 06/25/18 07:02 71 20 98 Nasal Cannula 2.0 28 06/25/18 06:56 Nasal Cannula 2.0 28 06/25/18 06:56 72 22 96 Nasal Cannula 2.0 28 06/25/18 06:56 96 Nasal Cannula 2.0 28 06/25/18 04:00 97.6 78 19 139/94 (109) 98 06/25/18 04:00 82 06/25/18 02:41 67 18 99 Nasal Cannula 2.0 28 06/25/18 02:40 28 06/25/18 02:24 90 18 94 Nasal Cannula 2.0 28 06/25/18 00:00 72 06/25/18 00:00 97.0 77 18 131/94 (106) 99 06/24/18 22:51 Nasal Cannula 2.0 28 06/24/18 22:51 Nasal Cannula 2.0 28 06/24/18 21:00 Nasal Cannula 2.0 06/24/18 20:47 80 148/100 06/24/18 20:00 80 06/24/18 20:00 97.7 80 18 148/100 (116) 96 06/24/18 19:35 89 18 99 Nasal Cannula 2.0 28 06/24/18 19:34 28 06/24/18 19:26 89 18 95 Nasal Cannula 2.0 28 06/24/18 19:26 Nasal Cannula 2.0 28 06/24/18 19:24 95 Nasal Cannula 2.0 28 06/24/18 16:00 97.2 76 20 140/104 (116) 98 06/24/18 16:00 80 06/24/18 15:00 Nasal Cannula 06/24/18 15:00 Nasal Cannula 06/24/18 12:00 81 06/24/18 12:00 97.6 63 20 114/79 (91) 100 Intake and Output 06/24/18 06/25/18 19:00 07:00 Intake Total 300 ml 50 ml Output Total 700 ml 600 ml Balance -400 ml -550 ml Intake Oral 300 ml 50 ml Output Urine Total 700 ml 600 ml # Voids 4 2 # Bowel Movements 1 Laboratory Tests 06/25/18 06:15: White Blood Count 4.9, Red Blood Count 3.85L, Hemoglobin 12.6L, Hematocrit 39.4L , Mean Corpuscular Volume 103H, Mean Corpuscular Hemoglobin 32.7H, Mean Corpuscular Hemoglobin Concent 31.9L, Red Cell Distribution Width 17.4H, Platelet Count 172, Mean Platelet Volume 7.6, Neutrophils (%) (Auto) 62.2, Lymphocytes (%) (Auto) 23.0, Monocytes (%) (Auto) 8.5, Eosinophils (%) (Auto) 4.6H, Basophils (%) (Auto) 1.8, Sodium Level 139, Potassium Level 4.6, Chloride Level 103, Carbon Dioxide Level 26, Anion Gap 10, Blood Urea Nitrogen 54H, Creatinine 5.4H, Estimat Glomerular Filtration Rate 10.8, Glucose Level 84, Calcium Level 8.5, Pro-B-Type Natriuretic Peptide > 78132V Height (Feet): 5 Height (Inches): 10.00 Weight (Pounds): 158 Cardiovascular: normal rate Respiratory/Chest: lungs clear Extremities: trace edema Robert Lemons MD Jun 25, 2018 11:33
[2018-06-25 12:00] VITALS: BP 131/76
[2018-06-25] MEDS ORDERED: Heparin Sod 1000 units/ml 10ml IV PRN (12:06)
--- NOTE | 2018-06-25 12:43 | General Progress Note ---
Assessment/Plan Problem List: (1) Bipolar 1 disorder ICD Codes: F31.9 - Bipolar disorder, unspecified SNOMED: 240428570 (2) Anxiety disorder ICD Codes: F41.9 - Anxiety disorder, unspecified SNOMED: 295318731 Status: stable Assessment/Plan xanax prn depakote va level. Subjective Neurologic/Psychiatric: Reports: anxiety Allergies: Coded Allergies: PENICILLINS (Verified Allergy, Unknown, 06/04/18) TOMATO (Unverified Allergy, Unknown, 06/22/18) Objective Last 24 Hour Vital Signs Date Time Temp Pulse Resp B/P (MAP) Pulse Ox O2 Delivery O2 Flow Rate FiO2 06/25/18 12:00 97.3 68 21 131/76 (94) 99 06/25/18 12:00 66 06/25/18 11:23 78 20 98 Nasal Cannula 3.0 32 06/25/18 11:17 76 20 97 Nasal Cannula 2.0 28 06/25/18 09:00 Nasal Cannula 2.0 Nasal Cannula 2.0 06/25/18 08:33 96 128/79 06/25/18 08:33 128/79 06/25/18 08:00 89 06/25/18 08:00 97.3 70 21 128/79 (95) 96 06/25/18 07:02 71 20 98 Nasal Cannula 2.0 28 06/25/18 06:56 Nasal Cannula 2.0 28 06/25/18 06:56 72 22 96 Nasal Cannula 2.0 28 06/25/18 06:56 96 Nasal Cannula 2.0 28 06/25/18 04:00 97.6 78 19 139/94 (109) 98 06/25/18 04:00 82 06/25/18 02:41 67 18 99 Nasal Cannula 2.0 28 06/25/18 02:40 28 06/25/18 02:24 90 18 94 Nasal Cannula 2.0 28 06/25/18 00:00 72 06/25/18 00:00 97.0 77 18 131/94 (106) 99 06/24/18 22:51 Nasal Cannula 2.0 28 06/24/18 22:51 Nasal Cannula 2.0 28 06/24/18 21:00 Nasal Cannula 2.0 06/24/18 20:47 80 148/100 06/24/18 20:00 80 06/24/18 20:00 97.7 80 18 148/100 (116) 96 06/24/18 19:35 89 18 99 Nasal Cannula 2.0 28 06/24/18 19:34 28 06/24/18 19:26 89 18 95 Nasal Cannula 2.0 28 18 19:26 Nasal Cannula 2.0 28 06/24/18 19:24 95 Nasal Cannula 2.0 28 06/24/18 16:00 97.2 76 20 140/104 (116) 98 06/24/18 16:00 80 06/24/18 15:00 Nasal Cannula 06/24/18 15:00 Nasal Cannula Intake and Output 06/24/18 06/25/18 19:00 07:00 Intake Total 300 ml 50 ml Output Total 700 ml 600 ml Balance -400 ml -550 ml Intake Oral 300 ml 50 ml Output Urine Total 700 ml 600 ml # Voids 4 2 # Bowel Movements 1 Laboratory Tests 06/25/18 06:15: White Blood Count 4.9, Red Blood Count 3.85L, Hemoglobin 12.6L, Hematocrit 39.4L , Mean Corpuscular Volume 103H, Mean Corpuscular Hemoglobin 32.7H, Mean Corpuscular Hemoglobin Concent 31.9L, Red Cell Distribution Width 17.4H, Platelet Count 172, Mean Platelet Volume 7.6, Neutrophils (%) (Auto) 62.2, Lymphocytes (%) (Auto) 23.0, Monocytes (%) (Auto) 8.5, Eosinophils (%) (Auto) 4.6H, Basophils (%) (Auto) 1.8, Sodium Level 139, Potassium Level 4.6, Chloride Level 103, Carbon Dioxide Level 26, Anion Gap 10, Blood Urea Nitrogen 54H, Creatinine 5.4H, Estimat Glomerular Filtration Rate 10.8, Glucose Level 84, Calcium Level 8.5, Pro-B-Type Natriuretic Peptide > 16235X Height (Feet): 5 Height (Inches): 10.00 Weight (Pounds): 158 General Appearance: WD/WN, alert, agitated Neurologic: oriented x 3, responsive, depressed affect Isaiah Dudley MD Jun 25, 2018 12:43
[2018-06-25 16:00] VITALS: BP 135/90
--- NOTE | 2018-06-25 16:36 | General Surgery Progress Note ---
General Surgery-Progress Note Subjective Additional Comments no acute events. stable. bnp high Objective Last 24 Hour Vital Signs Date Time Temp Pulse Resp B/P (MAP) Pulse Ox O2 Delivery O2 Flow Rate FiO2 06/25/18 15:15 82 20 98 Nasal Cannula 3.0 32 06/25/18 14:57 84 18 97 Nasal Cannula 3.0 32 06/25/18 12:00 97.3 68 21 131/76 (94) 99 06/25/18 12:00 66 06/25/18 11:23 78 20 98 Nasal Cannula 3.0 32 06/25/18 11:17 76 20 97 Nasal Cannula 2.0 28 06/25/18 09:00 Nasal Cannula 2.0 Nasal Cannula 2.0 06/25/18 08:33 96 128/79 06/25/18 08:33 128/79 06/25/18 08:00 89 06/25/18 08:00 97.3 70 21 128/79 (95) 96 06/25/18 07:02 71 20 98 Nasal Cannula 2.0 28 06/25/18 06:56 Nasal Cannula 2.0 28 06/25/18 06:56 72 22 96 Nasal Cannula 2.0 28 06/25/18 06:56 96 Nasal Cannula 2.0 28 06/25/18 04:00 97.6 78 19 139/94 (109) 98 06/25/18 04:00 82 06/25/18 02:41 67 18 99 Nasal Cannula 2.0 28 06/25/18 02:40 28 06/25/18 02:24 90 18 94 Nasal Cannula 2.0 28 06/25/18 00:00 72 06/25/18 00:00 97.0 77 18 131/94 (106) 99 06/24/18 22:51 Nasal Cannula 2.0 28 06/24/18 22:51 Nasal Cannula 2.0 28 06/24/18 21:00 Nasal Cannula 2.0 06/24/18 20:47 80 148/100 06/24/18 20:00 80 06/24/18 20:00 97.7 80 18 148/100 (116) 96 06/24/18 19:35 89 18 99 Nasal Cannula 2.0 28 06/24/18 19:34 28 06/24/18 19:26 89 18 95 Nasal Cannula 2.0 28 06/24/18 19:26 Nasal Cannula 2.0 28 06/24/18 19:24 95 Nasal Cannula 2.0 28 I&O Intake and Output 06/24/18 06/25/18 19:00 07:00 Intake Total 300 ml 50 ml Output Total 700 ml 600 ml Balance -400 ml -550 ml Intake Oral 300 ml 50 ml Output Urine Total 700 ml 600 ml # Voids 4 2 # Bowel Movements 1 Drains: none Cardiovascular: RSR Respiratory: clear Abdomen: soft, flat, non-tender, present bowel sounds, other - large hernia Extremities: no tenderness, no cyanosis, other Laboratory Tests Test 06/25/18 06:15 White Blood Count 4.9 K/UL (4.8-10.8) Red Blood Count 3.85 M/UL (4.70-6.10) L Hemoglobin 12.6 G/DL (14.2-18.0) L Hematocrit 39.4 % (42.0-52.0) L Mean Corpuscular Volume 103 FL (80-99) H Mean Corpuscular Hemoglobin 32.7 PG (27.0-31.0) H Mean Corpuscular Hemoglobin Concent 31.9 G/DL (32.0-36.0) L Red Cell Distribution Width 17.4 % (11.6-14.8) H Platelet Count 172 K/UL (150-450) Mean Platelet Volume 7.6 FL (6.5-10.1) Neutrophils (%) (Auto) 62.2 % (45.0-75.0) Lymphocytes (%) (Auto) 23.0 % (20.0-45.0) Monocytes (%) (Auto) 8.5 % (1.0-10.0) Eosinophils (%) (Auto) 4.6 % (0.0-3.0) H Basophils (%) (Auto) 1.8 % (0.0-2.0) Sodium Level 139 MMOL/L (136-145) Potassium Level 4.6 MMOL/L (3.5-5.1) Chloride Level 103 MMOL/L (98-107) Carbon Dioxide Level 26 MMOL/L (21-32) Anion Gap 10 mmol/L (5-15) Blood Urea Nitrogen 54 mg/dL (7-18) H Creatinine 5.4 MG/DL (0.55-1.30) H Estimat Glomerular Filtration Rate 10.8 mL/min (>60) Glucose Level 84 MG/DL (74-106) Calcium Level 8.5 MG/DL (8.5-10.1) Pro-B-Type Natriuretic Peptide > 86989 pg/mL (0-125) H Plan Problems: (1) Right inguinal hernia (2) Incarcerated right inguinal hernia Assessment & Plan: large right inguinal hernia with content into scrotum. contents mainly bowel and unable to fully reduce hence fairly incarcerated into sac but no signs or symptoms of strangulation or obstructive symptoms. non tender on exam. fairly extensive though. no umbilical hernia. no clear left sided hernia has had for years. given cardiac history and current condition would not recommend surgery unless becomes strangulated or life threatening. he has no obstructive symptoms and has had this for years. emergency surgery would be with very high morbidity and mortality. elective surgery would be as well but if interested I am happy to see him in the office and discuss this with patient and multidisciplinary team. okay for diet will monitor clinically while in hospital thank you for allowing me to participate in patients care Harmeet Benson Jun 25, 2018 16:36
--- NOTE | 2018-06-25 19:27 | Cardiology Progress Note ---
Assessment/Plan Assessment/Plan 1. Atypical chest pain. 2. Cardiomyopathy systolic, felt to be probably nonischemic. 3. End-stage renal disease, on hemodialysis. 4. Hyperkalemia. 5. Chronic obstructive pulmonary disease. 6. Dietary indiscretion. 7. Recent pneumonia fludi / na restriction acei low dose increase if and only when ok with dr stock isordil hydralzien may need to be used if bp remain elelvated post dialysis has refused icd ischmei eval no reversibility recently trop neg tele sinus Subjective Cardiovascular: Denies: chest pain, lightheadedness Respiratory: Denies: shortness of breath Gastrointestinal/Abdominal: Denies: abdominal pain Genitourinary: Reports: burning, other Objective Last 24 Hour Vital Signs Date Time Temp Pulse Resp B/P (MAP) Pulse Ox O2 Delivery O2 Flow Rate FiO2 06/25/18 16:00 64 06/25/18 16:00 97.2 68 20 135/90 (105) 99 06/25/18 15:15 82 20 98 Nasal Cannula 3.0 32 06/25/18 14:57 84 18 97 Nasal Cannula 3.0 32 06/25/18 12:00 97.3 68 21 131/76 (94) 99 06/25/18 12:00 66 06/25/18 11:23 78 20 98 Nasal Cannula 3.0 32 06/25/18 11:17 76 20 97 Nasal Cannula 2.0 28 06/25/18 09:00 Nasal Cannula 2.0 Nasal Cannula 2.0 06/25/18 08:33 96 128/79 06/25/18 08:33 128/79 06/25/18 08:00 89 06/25/18 08:00 97.3 70 21 128/79 (95) 96 06/25/18 07:02 71 20 98 Nasal Cannula 2.0 28 06/25/18 06:56 Nasal Cannula 2.0 28 06/25/18 06:56 72 22 96 Nasal Cannula 2.0 28 06/25/18 06:56 96 Nasal Cannula 2.0 28 06/25/18 04:00 97.6 78 19 139/94 (109) 98 06/25/18 04:00 82 06/25/18 02:41 67 18 99 Nasal Cannula 2.0 28 06/25/18 02:40 28 06/25/18 02:24 90 18 94 Nasal Cannula 2.0 28 06/25/18 00:00 72 06/25/18 00:00 97.0 77 18 131/94 (106) 99 06/24/18 22:51 Nasal Cannula 2.0 28 06/24/18 22:51 Nasal Cannula 2.0 28 06/24/18 21:00 Nasal Cannula 2.0 06/24/18 20:47 80 148/100 06/24/18 20:00 80 06/24/18 20:00 97.7 80 18 148/100 (116) 96 06/24/18 19:35 89 18 99 Nasal Cannula 2.0 28 06/24/18 19:34 28 General Appearance: alert Neck: supple Cardiovascular: regular rhythm, regularly irregular Respiratory/Chest: lungs clear Abdomen: normal bowel sounds, non tender, soft Extremities: no swelling Intake and Output 06/24/18 06/25/18 19:00 07:00 Intake Total 300 ml 50 ml Output Total 700 ml 600 ml Balance -400 ml -550 ml Intake Oral 300 ml 50 ml Output Urine Total 700 ml 600 ml # Voids 4 2 # Bowel Movements 1 Laboratory Tests Test 06/25/18 06:15 White Blood Count 4.9 K/UL (4.8-10.8) Red Blood Count 3.85 M/UL (4.70-6.10) L Hemoglobin 12.6 G/DL (14.2-18.0) L Hematocrit 39.4 % (42.0-52.0) L Mean Corpuscular Volume 103 FL (80-99) H Mean Corpuscular Hemoglobin 32.7 PG (27.0-31.0) H Mean Corpuscular Hemoglobin Concent 31.9 G/DL (32.0-36.0) L Red Cell Distribution Width 17.4 % (11.6-14.8) H Platelet Count 172 K/UL (150-450) Mean Platelet Volume 7.6 FL (6.5-10.1) Neutrophils (%) (Auto) 62.2 % (45.0-75.0) Lymphocytes (%) (Auto) 23.0 % (20.0-45.0) Monocytes (%) (Auto) 8.5 % (1.0-10.0) Eosinophils (%) (Auto) 4.6 % (0.0-3.0) H Basophils (%) (Auto) 1.8 % (0.0-2.0) Sodium Level 139 MMOL/L (136-145) Potassium Level 4.6 MMOL/L (3.5-5.1) Chloride Level 103 MMOL/L (98-107) Carbon Dioxide Level 26 MMOL/L (21-32) Anion Gap 10 mmol/L (5-15) Blood Urea Nitrogen 54 mg/dL (7-18) H Creatinine 5.4 MG/DL (0.55-1.30) H Estimat Glomerular Filtration Rate 10.8 mL/min (>60) Glucose Level 84 MG/DL (74-106) Calcium Level 8.5 MG/DL (8.5-10.1) Pro-B-Type Natriuretic Peptide > 33572 pg/mL (0-125) H Microbiology Date/Time Source Procedure Growth Status 06/22/18 21:20 Nasal Aspirate MRSA Culture - Final NO METHICILLIN RESISTANT STAPH AUREUS... Complete 06/23/18 20:18 Rectum VRE Culture - Final Enterococcus Faecalis - Vre Complete 06/22/18 21:20 Rectum - Final NO CARBAPENEM-RESISTANT ENTEROBACTERI... Complete Baldo Mcneill MD Jun 25, 2018 19:27
[2018-06-25 20:00] VITALS: BP 127/89
--- NOTE | 2018-06-25 20:20 | Pulmonology Progress Note ---
Assessment/Plan Assessment/Plan Pulmonary Consultation Note HPI 63-year-old male with a history of COPD, Cardiomyopathy, CHF, hypertension, ESRD on Friday hemodialysis, presents with chest pain while sitting at his shelter facility, he reports is midsternal, with decision shortness of breath, reports the pain was a gnawing type pain, nonradiating, his given aspirin and nitroglycerin prior to arrival, he does report feeling much improvement in his pain after these interventions. Eyes hemoptysis cough, syncope, any other symptoms, and reports his last dialysis session with Friday he is due for his next one tomorrow. Less SOB, no chest pain s/p HD Allergies: Coded Allergies: PENICILLINS (Verified Allergy, Unknown, 06/04/18) TOMATO (Unverified Allergy, Unknown, 06/22/18) Past Medical History: COPD, Cardiomyopathy, CHF, hypertension, ESRD All Other Systems: negative except mentioned in HPI Physical Exam Vital Signs Noted Date Time Temp Pulse Resp B/P (MAP) Pulse Ox O2 Delivery O2 Flow Rate FiO2 06/22/18 19:28 69 18 Room Air 06/22/18 19:28 97.5 109/75 95 General Appearance: no apparent distress, alert, non-toxic Head: normocephalic Eyes: bilateral eye normal inspection, bilateral eye PERRL, bilateral eye EOMI ENT: normal ENT inspection, hearing grossly normal, normal pharynx, no angioedema, normal voice, moist mucus membranes Neck: normal inspection, full range of motion, supple, supple/symm/no masses Respiratory: chest non-tender, lungs clear, normal breath sounds, chest symmetrical, palpation of chest normal Cardiovascular #1: normal peripheral pulses, regular rate, rhythm, other - R chest vascath site c/d/i, no erythema/warmth/breakdown Cardiovascular #2: 2+ radial (R), 2+ radial (L) Gastrointestinal: normal inspection, non tender, soft, no mass, no guarding, no rebound Rectal: deferred Genitourinary: normal inspection, no CVA tenderness Musculoskeletal: back normal, gait/station normal, normal range of motion, non- tender, no calf tenderness Neurologic: alert, 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, 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, motor strength/tone normal, sensory intact, speech normal Psychiatric: judgement/insight normal, memory normal, mood/affect normal Skin: normal color, no rash, warm/dry, normal turgor Lymphatic: no adenopathy Impression: ESRD on hemodialysis Volume overload on CXR Pleural effusion 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 Hyperkalemia Plan Dialyse per Renal HHN O2 PRN PPX 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 Monitor labs EKG Time: 19:21 EP Interpretation: no stemi Rate: normal Rhythm: NSR ST Segments: no acute changes Chest X-Ray no consolidation, no pneumothorax, other - L sided effusion Impression: Other - L sided effusion, pulm vasc congestion Subjective ROS Limited/Unobtainable: No Allergies: Coded Allergies: PENICILLINS (Verified Allergy, Unknown, 06/04/18) TOMATO (Unverified Allergy, Unknown, 06/22/18) Objective Last 24 Hour Vital Signs Date Time Temp Pulse Resp B/P (MAP) Pulse Ox O2 Delivery O2 Flow Rate FiO2 06/25/18 19:49 84 20 98 Nasal Cannula 2.0 32 06/25/18 19:37 72 18 98 Nasal Cannula 2.0 32 06/25/18 19:37 Nasal Cannula 2.0 28 06/25/18 19:35 98 Nasal Cannula 2.0 28 06/25/18 16:00 64 06/25/18 16:00 97.2 68 20 135/90 (105) 99 06/25/18 15:15 82 20 98 Nasal Cannula 3.0 32 06/25/18 14:57 84 18 97 Nasal Cannula 3.0 32 06/25/18 12:00 97.3 68 21 131/76 (94) 99 06/25/18 12:00 66 06/25/18 11:23 78 20 98 Nasal Cannula 3.0 32 06/25/18 11:17 76 20 97 Nasal Cannula 2.0 28 06/25/18 09:00 Nasal Cannula 2.0 Nasal Cannula 2.0 06/25/18 08:33 96 128/79 06/25/18 08:33 128/79 06/25/18 08:00 89 06/25/18 08:00 97.3 70 21 128/79 (95) 96 06/25/18 07:02 71 20 98 Nasal Cannula 2.0 28 06/25/18 06:56 Nasal Cannula 2.0 28 06/25/18 06:56 72 22 96 Nasal Cannula 2.0 28 12/20/18 06:56 96 Nasal Cannula 2.0 28 06/25/18 04:00 97.6 78 19 139/94 (109) 98 06/25/18 04:00 82 06/25/18 02:41 67 18 99 Nasal Cannula 2.0 28 06/25/18 02:40 28 06/25/18 02:24 90 18 94 Nasal Cannula 2.0 28 06/25/18 00:00 72 06/25/18 00:00 97.0 77 18 131/94 (106) 99 06/24/18 22:51 Nasal Cannula 2.0 28 06/24/18 22:51 Nasal Cannula 2.0 28 06/24/18 21:00 Nasal Cannula 2.0 06/24/18 20:47 80 148/100 Intake and Output 06/24/18 06/25/18 19:00 07:00 Intake Total 300 ml 50 ml Output Total 700 ml 600 ml Balance -400 ml -550 ml Intake Oral 300 ml 50 ml Output Urine Total 700 ml 600 ml # Voids 4 2 # Bowel Movements 1 Microbiology Date/Time Source Procedure Growth Status 06/22/18 21:20 Nasal Aspirate MRSA Culture - Final NO METHICILLIN RESISTANT STAPH AUREUS... Complete 06/23/18 20:18 Rectum VRE Culture - Final Enterococcus Faecalis - Vre Complete 06/22/18 21:20 Rectum - Final NO CARBAPENEM-RESISTANT ENTEROBACTERI... Complete Laboratory Tests 06/25/18 06:15: White Blood Count 4.9, Red Blood Count 3.85L, Hemoglobin 12.6L, Hematocrit 39.4L , Mean Corpuscular Volume 103H, Mean Corpuscular Hemoglobin 32.7H, Mean Corpuscular Hemoglobin Concent 31.9L, Red Cell Distribution Width 17.4H, Platelet Count 172, Mean Platelet Volume 7.6, Neutrophils (%) (Auto) 62.2, Lymphocytes (%) (Auto) 23.0, Monocytes (%) (Auto) 8.5, Eosinophils (%) (Auto) 4.6H, Basophils (%) (Auto) 1.8, Sodium Level 139, Potassium Level 4.6, Chloride Level 103, Carbon Dioxide Level 26, Anion Gap 10, Blood Urea Nitrogen 54H, Creatinine 5.4H, Estimat Glomerular Filtration Rate 10.8, Glucose Level 84, Calcium Level 8.5, Pro-B-Type Natriuretic Peptide > 51211X Current Medications Medications (Trade) Dose Ordered Sig/Cynthia Route PRN Reason Start Time Stop Time Status Last Admin Dose Admin Acetaminophen (Tylenol) 500 mg Q6H PRN ORAL For Pain 06/24/18 08:30 07/23/18 02:29 06/24/18 20:48 Albuterol Sulfate (Proventil) 2.5 mg Q4HRT HHN 06/24/18 11:00 06/28/18 08:29 06/25/18 19:34 Alprazolam (Xanax) 0.5 mg Q6H PRN ORAL For Anxiety 06/24/18 13:43 07/01/18 13:42 06/25/18 18:38 Aspirin (ASA) 81 mg DAILY ORAL 06/24/18 09:00 07/23/18 08:59 06/25/18 08:24 Benazepril HCl (Lotensin) 10 mg DAILY ORAL 06/24/18 09:00 07/23/18 08:59 06/25/18 08:33 Calcium Acetate (Phoslo) 1,334 mg TID ORAL 06/24/18 09:00 07/23/18 08:59 06/25/18 18:29 Carvedilol (Coreg) 3.125 mg EVERY 12 HOURS ORAL 06/24/18 09:00 07/23/18 08:59 06/25/18 08:33 Chlorhexidine Gluconate (Antonia-Hex 2%) 1 applic DAILY@2000 TOPIC 06/24/18 20:00 07/23/18 19:59 06/24/18 20:47 Folic Acid (Folate) 1 mg DAILY ORAL 06/24/18 09:00 07/23/18 08:59 06/25/18 08:25 Heparin Sodium (Porcine) (Heparin 5000 units/ml) 5,000 units EVERY 12 HOURS SUBQ 06/24/18 09:00 07/23/18 08:59 06/25/18 08:45 Heparin Sodium (Porcine) (Heparin Sod 1000 units/ml 10ml) 500 unit ONCE PRN IV DIALYSIS 06/25/18 12:06 06/26/18 23:59 Hydralazine HCl (Apresoline) 10 mg Q6H PRN IV BLOOD PRESSURE 06/24/18 15:45 07/24/18 15:44 Ipratropium [place] (Atrovent) 500 mcg Q4H PRN HHN Shortness of Breath 06/24/18 08:30 06/28/18 08:29 Pantoprazole (Protonix) 40 mg ACBREAKFAST ORAL 06/24/18 09:00 07/24/18 08:59 06/25/18 06:23 Sodium Chloride 1,000 ml @ 500 mls/hr Q2H PRN IVLG sbp<90 during hd 06/25/18 12:06 06/26/18 23:59 Valproic Acid (Depakene) 750 mg EVERY 12 HOURS ORAL 06/24/18 09:00 07/23/18 09:29 06/25/18 08:24 Vitamin B Complex/ Vit C/Folic Acid (Nephrovite) 1 tab DAILY ORAL 06/24/18 09:00 07/23/18 14:29 06/25/18 08:24 Gagan Yousif MD Jun 25, 2018 20:20
[2018-06-25] MEDS: Dyna-Hex 2% Top Sol 2oz TOPIC SCH (21:33)
--- NOTE | 2018-06-25 22:17 | General Progress Note ---
Assessment/Plan Assessment/Plan chf cardiomyopathy renal failure pleural effusions dialysis diureses cards fup optimize failure meds yonathan inhibitor fluid restrition dvt and ulcer prophylaxis Subjective Allergies: Coded Allergies: PENICILLINS (Verified Allergy, Unknown, 06/04/18) TOMATO (Unverified Allergy, Unknown, 06/22/18) Subjective overall better no chest painsome dyspnea Objective Last 24 Hour Vital Signs Date Time Temp Pulse Resp B/P (MAP) Pulse Ox O2 Delivery O2 Flow Rate FiO2 06/25/18 21:29 79 127/89 06/25/18 19:49 84 20 98 Nasal Cannula 2.0 32 06/25/18 19:37 72 18 98 Nasal Cannula 2.0 32 06/25/18 19:37 Nasal Cannula 2.0 28 06/25/18 19:35 98 Nasal Cannula 2.0 28 06/25/18 16:00 64 06/25/18 16:00 97.2 68 20 135/90 (105) 99 06/25/18 15:15 82 20 98 Nasal Cannula 3.0 32 06/25/18 14:57 84 18 97 Nasal Cannula 3.0 32 06/25/18 12:00 97.3 68 21 131/76 (94) 99 06/25/18 12:00 66 06/25/18 11:23 78 20 98 Nasal Cannula 3.0 32 06/25/18 11:17 76 20 97 Nasal Cannula 2.0 28 06/25/18 09:00 Nasal Cannula 2.0 Nasal Cannula 2.0 06/25/18 08:33 96 128/79 06/25/18 08:33 128/79 06/25/18 08:00 89 06/25/18 08:00 97.3 70 21 128/79 (95) 96 06/25/18 07:02 71 20 98 Nasal Cannula 2.0 28 06/25/18 06:56 Nasal Cannula 2.0 28 06/25/18 06:56 72 22 96 Nasal Cannula 2.0 28 06/25/18 06:56 96 Nasal Cannula 2.0 28 06/25/18 04:00 97.6 78 19 139/94 (109) 98 06/25/18 04:00 82 06/25/18 02:41 67 18 99 Nasal Cannula 2.0 28 06/25/18 02:40 28 06/25/18 02:24 90 18 94 Nasal Cannula 2.0 28 06/25/18 00:00 72 06/25/18 00:00 97.0 77 18 131/94 (106) 99 06/24/18 22:51 Nasal Cannula 2.0 28 06/24/18 22:51 Nasal Cannula 2.0 28 Intake and Output 06/24/18 06/25/18 19:00 07:00 Intake Total 300 ml 50 ml Output Total 700 ml 600 ml Balance -400 ml -550 ml Intake Oral 300 ml 50 ml Output Urine Total 700 ml 600 ml # Voids 4 2 # Bowel Movements 1 Laboratory Tests 06/25/18 06:15: White Blood Count 4.9, Red Blood Count 3.85L, Hemoglobin 12.6L, Hematocrit 39.4L , Mean Corpuscular Volume 103H, Mean Corpuscular Hemoglobin 32.7H, Mean Corpuscular Hemoglobin Concent 31.9L, Red Cell Distribution Width 17.4H, Platelet Count 172, Mean Platelet Volume 7.6, Neutrophils (%) (Auto) 62.2, Lymphocytes (%) (Auto) 23.0, Monocytes (%) (Auto) 8.5, Eosinophils (%) (Auto) 4.6H, Basophils (%) (Auto) 1.8, Sodium Level 139, Potassium Level 4.6, Chloride Level 103, Carbon Dioxide Level 26, Anion Gap 10, Blood Urea Nitrogen 54H, Creatinine 5.4H, Estimat Glomerular Filtration Rate 10.8, Glucose Level 84, Calcium Level 8.5, Pro-B-Type Natriuretic Peptide > [id number] Height (Feet): 5 Height (Inches): 10.00 Weight (Pounds): 158 General Appearance: WD/WN, no apparent distress Neck: supple Cardiovascular: normal rate Respiratory/Chest: lungs clear Abdomen: soft Objective 1 plus edema bilaterally Luís Baumann MD Jun 25, 2018 22:17
[2018-06-26] VITALS: BP 127/87
[2018-06-26] MEDS: Albuterol ud Inhalation HHN SCH ×6 (03:54→23:00)
[2018-06-26 04:00] VITALS: BP 133/93
[2018-06-26 06:32] LABS: BASOPHILS % (AUTO) 1.8 % (0.0-2.0); HEMATOCRIT 40.1 % (42.0-52.0); HEMOGLOBIN 12.7 G/DL (14.2-18.0); LYMPHOCYTES % (AUTO) 23.7 % (20.0-45.0); MEAN CORPUSCULAR VOLUME 103 FL (80-99); MONOCYTES % (AUTO) 9.9 % (1.0-10.0); NEUTROPHILS % (AUTO) 58.5 % (45.0-75.0); PLATELET COUNT 161 K/UL (150-450); RED BLOOD COUNT 3.88 M/UL (4.70-6.10); RED CELL DISTRIBUTION WIDTH 17.8 % (11.6-14.8); WHITE BLOOD COUNT 4.8 K/UL (4.8-10.8)
[2018-06-26 07:04] LABS: ANION GAP 11 mmol/L (5-15); BLOOD UREA NITROGEN 72 mg/dL (7-18); CALCIUM 8.7 MG/DL (8.5-10.1); CARBON DIOXIDE 25 MMOL/L (21-32); CHLORIDE 104 MMOL/L (98-107); CREATININE 7.4 MG/DL (0.55-1.30); POTASSIUM 5.1 MMOL/L (3.5-5.1); SODIUM 140 MMOL/L (136-145)
[2018-06-26 08:00] VITALS: BP 130/82
[2018-06-26] MEDS: Benazepril 10mg tab ORAL SCH (08:51)
[2018-06-26] MEDS: Nephrovite tab (Rena-Vite) ORAL SCH (10:19)
[2018-06-26] MEDS: Calcium Acetate 667mg Tab ORAL SCH ×3 (10:19→18:06)
[2018-06-26] MEDS: Valproic Acid 250mg/5ml Liquid ORAL SCH ×2 (10:20→20:30)
[2018-06-26] MEDS: Aspirin Baby 81mg ORAL SCH (10:20)
[2018-06-26] MEDS: Heparin 5000 units/ml inj SUBQ SCH ×2 (10:21→20:31)
[2018-06-26] MEDS: ALPRAZolam 0.25mg tab ORAL PRN ×2 (10:27→20:38)
[2018-06-26 12:00] VITALS: BP 130/82
--- NOTE | 2018-06-26 13:36 | Nephrology Progress Note ---
Assessment/Plan Problem List: (1) ESRD on hemodialysis (2) CHF (congestive heart failure) (3) COPD exacerbation (4) Hyperkalemia (5) Inguinal hernia Plan HD today yonathan inhibitors ok to increase dose Bronchodilators Fluid restriction HD again tomorrow Subjective Subjective feels better Objective Objective Last 24 Hour Vital Signs Date Time Temp Pulse Resp B/P (MAP) Pulse Ox O2 Delivery O2 Flow Rate FiO2 06/26/18 11:28 70 18 99 Nasal Cannula 3.0 32 06/26/18 11:20 63 18 99 Nasal Cannula 3.0 32 06/26/18 09:00 Nasal Cannula 2.0 Nasal Cannula 2.0 06/26/18 08:51 115/69 06/26/18 08:49 57 115/69 06/26/18 08:00 97.0 82 20 130/82 (98) 97 06/26/18 07:38 80 22 97 Nasal Cannula 3.0 32 06/26/18 07:29 Nasal Cannula 3.0 32 06/26/18 07:29 96 Nasal Cannula 3.0 32 06/26/18 07:29 79 20 96 Nasal Cannula 3.0 32 06/26/18 04:00 73 06/26/18 04:00 97.4 80 20 133/93 (106) 97 06/26/18 03:59 81 22 95 Nasal Cannula 3.0 32 06/26/18 03:50 82 24 88 Nasal Cannula 2.0 06/26/18 00:00 71 06/26/18 00:00 97.5 72 19 127/87 (100) 97 06/25/18 23:45 Nasal Cannula 2.0 28 06/25/18 23:45 Nasal Cannula 2.0 28 06/25/18 21:29 79 127/89 06/25/18 21:00 Nasal Cannula 2.0 Nasal Cannula 2.0 06/25/18 20:00 67 06/25/18 20:00 97.4 79 19 127/89 (102) 95 06/25/18 19:49 84 20 98 Nasal Cannula 2.0 32 06/25/18 19:37 72 18 98 Nasal Cannula 2.0 32 06/25/18 19:37 Nasal Cannula 2.0 28 06/25/18 19:35 98 Nasal Cannula 2.0 28 06/25/18 16:00 64 12/20/18 16:00 97.2 68 20 135/90 (105) 99 06/25/18 15:15 82 20 98 Nasal Cannula 3.0 32 06/25/18 14:57 84 18 97 Nasal Cannula 3.0 32 Intake and Output 06/25/18 06/26/18 19:00 07:00 Output Total 300 ml 300 ml Balance -300 ml -300 ml Output Urine Total 300 ml 300 ml # Bowel Movements 1 Laboratory Tests 06/26/18 06:00: White Blood Count 4.8, Red Blood Count 3.88L, Hemoglobin 12.7L, Hematocrit 40.1L , Mean Corpuscular Volume 103H, Mean Corpuscular Hemoglobin 32.6H, Mean Corpuscular Hemoglobin Concent 31.6L, Red Cell Distribution Width 17.8H, Platelet Count 161, Mean Platelet Volume 7.4, Neutrophils (%) (Auto) 58.5, Lymphocytes (%) (Auto) 23.7, Monocytes (%) (Auto) 9.9, Eosinophils (%) (Auto) 6.0H, Basophils (%) (Auto) 1.8, Sodium Level 140, Potassium Level 5.1, Chloride Level 104, Carbon Dioxide Level 25, Anion Gap 11, Blood Urea Nitrogen 72H, Creatinine 7.4H, Estimat Glomerular Filtration Rate 7.5, Glucose Level 79, Calcium Level 8.7 Height (Feet): 5 Height (Inches): 10.00 Weight (Pounds): 158 Cardiovascular: normal rate Respiratory/Chest: lungs clear Extremities: trace edema Robert Lemons MD Jun 26, 2018 13:35
[2018-06-26] MEDS ORDERED: Heparin Sod 1000 units/ml 10ml IV PRN (13:39)
[2018-06-26] MEDS ORDERED: Heparin 5000 units/ml inj INJ PRN (13:40)
--- NOTE | 2018-06-26 14:02 | Pulmonology Progress Note ---
Assessment/Plan Assessment/Plan Pulmonary Consultation Note HPI 63-year-old male with a history of COPD, Cardiomyopathy, CHF, hypertension, ESRD on Friday hemodialysis, presents with chest pain while sitting at his care home facility, he reports is midsternal, with decision shortness of breath, reports the pain was a gnawing type pain, nonradiating, his given aspirin and nitroglycerin prior to arrival, he does report feeling much improvement in his pain after these interventions. Eyes hemoptysis cough, syncope, any other symptoms, and reports his last dialysis session with Friday he is due for his next one tomorrow. Less SOB, no chest pain s/p HD Allergies: Coded Allergies: PENICILLINS (Verified Allergy, Unknown, 06/04/18) TOMATO (Unverified Allergy, Unknown, 06/22/18) Past Medical History: COPD, Cardiomyopathy, CHF, hypertension, ESRD All Other Systems: negative except mentioned in HPI Physical Exam Vital Signs Noted Date Time Temp Pulse Resp B/P (MAP) Pulse Ox O2 Delivery O2 Flow Rate FiO2 06/22/18 19:28 69 18 Room Air 06/22/18 19:28 97.5 109/75 95 General Appearance: no apparent distress, alert, non-toxic Head: normocephalic Eyes: bilateral eye normal inspection, bilateral eye PERRL, bilateral eye EOMI ENT: normal ENT inspection, hearing grossly normal, normal pharynx, no angioedema, normal voice, moist mucus membranes Neck: normal inspection, full range of motion, supple, supple/symm/no masses Respiratory: chest non-tender, lungs clear, normal breath sounds, chest symmetrical, palpation of chest normal Cardiovascular #1: normal peripheral pulses, regular rate, rhythm, other - R chest vascath site c/d/i, no erythema/warmth/breakdown Cardiovascular #2: 2+ radial (R), 2+ radial (L) Gastrointestinal: normal inspection, non tender, soft, no mass, no guarding, no rebound Rectal: deferred Genitourinary: normal inspection, no CVA tenderness Musculoskeletal: back normal, gait/station normal, normal range of motion, non- tender, no calf tenderness Neurologic: alert, 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, 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, motor strength/tone normal, sensory intact, speech normal Psychiatric: judgement/insight normal, memory normal, mood/affect normal Skin: normal color, no rash, warm/dry, normal turgor Lymphatic: no adenopathy Impression: ESRD on hemodialysis Volume overload on CXR 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 effusion 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 Hyperkalemia Plan Dialyse per Renal HHN O2 PRN 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 Monitor labs EKG Time: 19:21 EP Interpretation: no stemi Rate: normal Rhythm: NSR ST Segments: no acute changes Chest X-Ray no consolidation, no pneumothorax, other - L sided effusion Impression: Other - L sided effusion, pulm vasc congestion Subjective ROS Limited/Unobtainable: No Allergies: Coded Allergies: PENICILLINS (Verified Allergy, Unknown, 06/04/18) TOMATO (Unverified Allergy, Unknown, 06/22/18) Objective Last 24 Hour Vital Signs Date Time Temp Pulse Resp B/P (MAP) Pulse Ox O2 Delivery O2 Flow Rate FiO2 06/26/18 11:28 70 18 99 Nasal Cannula 3.0 32 06/26/18 11:20 63 18 99 Nasal Cannula 3.0 32 06/26/18 09:00 Nasal Cannula 2.0 Nasal Cannula 2.0 06/26/18 08:51 115/69 06/26/18 08:49 57 115/69 06/26/18 08:00 97.0 82 20 130/82 (98) 97 06/26/18 07:38 80 22 97 Nasal Cannula 3.0 32 06/26/18 07:29 Nasal Cannula 3.0 32 06/26/18 07:29 96 Nasal Cannula 3.0 32 06/26/18 07:29 79 20 96 Nasal Cannula 3.0 32 06/26/18 04:00 73 06/26/18 04:00 97.4 80 20 133/93 (106) 97 06/26/18 03:59 81 22 95 Nasal Cannula 3.0 32 06/26/18 03:50 82 24 88 Nasal Cannula 2.0 06/26/18 00:00 71 06/26/18 00:00 97.5 72 19 127/87 (100) 97 06/25/18 23:45 Nasal Cannula 2.0 28 06/25/18 23:45 Nasal Cannula 2.0 28 06/25/18 21:29 79 127/89 06/25/18 21:00 Nasal Cannula 2.0 Nasal Cannula 2.0 12/20/18 20:00 67 06/25/18 20:00 97.4 79 19 127/89 (102) 95 06/25/18 19:49 84 20 98 Nasal Cannula 2.0 32 06/25/18 19:37 72 18 98 Nasal Cannula 2.0 32 06/25/18 19:37 Nasal Cannula 2.0 28 06/25/18 19:35 98 Nasal Cannula 2.0 28 06/25/18 16:00 64 06/25/18 16:00 97.2 68 20 135/90 (105) 99 06/25/18 15:15 82 20 98 Nasal Cannula 3.0 32 06/25/18 14:57 84 18 97 Nasal Cannula 3.0 32 Intake and Output 06/25/18 06/26/18 19:00 07:00 Output Total 300 ml 300 ml Balance -300 ml -300 ml Output Urine Total 300 ml 300 ml # Bowel Movements 1 Microbiology Date/Time Source Procedure Growth Status 06/23/18 20:18 Rectum VRE Culture - Final Enterococcus Faecalis - Vre Complete Laboratory Tests 06/26/18 06:00: White Blood Count 4.8, Red Blood Count 3.88L, Hemoglobin 12.7L, Hematocrit 40.1L , Mean Corpuscular Volume 103H, Mean Corpuscular Hemoglobin 32.6H, Mean Corpuscular Hemoglobin Concent 31.6L, Red Cell Distribution Width 17.8H, Platelet Count 161, Mean Platelet Volume 7.4, Neutrophils (%) (Auto) 58.5, Lymphocytes (%) (Auto) 23.7, Monocytes (%) (Auto) 9.9, Eosinophils (%) (Auto) 6.0H, Basophils (%) (Auto) 1.8, Sodium Level 140, Potassium Level 5.1, Chloride Level 104, Carbon Dioxide Level 25, Anion Gap 11, Blood Urea Nitrogen 72H, Creatinine 7.4H, Estimat Glomerular Filtration Rate 7.5, Glucose Level 79, Calcium Level 8.7 Current Medications Medications (Trade) Dose Ordered Sig/Cynthia Route PRN Reason Start Time Stop Time Status Last Admin Dose Admin Acetaminophen (Tylenol) 500 mg Q6H PRN ORAL For Pain 06/24/18 08:30 07/23/18 02:29 06/24/18 20:48 Albuterol Sulfate (Proventil) 2.5 mg Q4HRT HHN 06/24/18 11:00 06/28/18 08:29 06/26/18 11:18 Alprazolam (Xanax) 0.5 mg Q6H PRN ORAL For Anxiety 06/24/18 13:43 07/01/18 13:42 06/26/18 10:27 Aspirin (ASA) 81 mg DAILY ORAL 06/24/18 09:00 07/23/18 08:59 06/26/18 10:20 Benazepril HCl (Lotensin) 10 mg DAILY ORAL 06/24/18 09:00 07/23/18 08:59 06/25/18 08:33 Calcium Acetate (Phoslo) 1,334 mg TID ORAL 06/24/18 09:00 07/23/18 08:59 06/26/18 10:19 Carvedilol (Coreg) 3.125 mg EVERY 12 HOURS ORAL 06/24/18 09:00 07/23/18 08:59 06/25/18 21:29 Chlorhexidine Gluconate (Antonia-Hex 2%) 1 applic DAILY@2000 TOPIC 06/24/18 20:00 07/23/18 19:59 06/25/18 21:33 Folic Acid (Folate) 1 mg DAILY ORAL 06/24/18 09:00 07/23/18 08:59 06/26/18 10:19 Heparin Sodium (Porcine) (Heparin 5000 units/ml) 5,000 units EVERY 12 HOURS SUBQ 06/24/18 09:00 07/23/18 08:59 06/26/18 10:21 Heparin Sodium (Porcine) (Heparin 5000 units/ml) 5,000 units POSTHD PRN INJ POST HD 06/26/18 13:40 06/27/18 23:59 Heparin Sodium (Porcine) (Heparin Sod 1000 units/ml 10ml) 2,000 unit ONCE PRN IV DIALYSIS 06/26/18 13:39 06/27/18 23:59 Hydralazine HCl (Apresoline) 10 mg Q6H PRN IV BLOOD PRESSURE 06/24/18 15:45 07/24/18 15:44 Ipratropium [place] (Atrovent) 500 mcg Q4H PRN HHN Shortness of Breath 06/24/18 08:30 06/28/18 08:29 Pantoprazole (Protonix) 40 mg ACBREAKFAST ORAL 06/24/18 09:00 07/24/18 08:59 06/26/18 06:38 Sodium Chloride 1,000 ml @ 500 mls/hr Q2H PRN IVLG sbp<90 during hd 06/26/18 13:39 06/27/18 23:59 Valproic Acid (Depakene) 750 mg EVERY 12 HOURS ORAL 06/24/18 09:00 07/23/18 09:29 06/26/18 10:20 Vitamin B Complex/ Vit C/Folic Acid (Nephrovite) 1 tab DAILY ORAL 06/24/18 09:00 07/23/18 14:29 06/26/18 10:19 Gagan Yousif MD Jun 26, 2018 14:02
[2018-06-26 16:00] VITALS: BP 119/87
--- NOTE | 2018-06-26 19:08 | Cardiology Progress Note ---
Assessment/Plan Assessment/Plan 1. Atypical chest pain. 2. Cardiomyopathy systolic, felt to be probably nonischemic. 3. End-stage renal disease, on hemodialysis. 4. Hyperkalemia. 5. Chronic obstructive pulmonary disease. 6. Dietary indiscretion. 7. Recent pneumonia fludi / na restriction agian discused with pt acei low dose cannto increase as k elevated isordil will be started has refused icd ischmei eval no reversibility recently trop neg tele sinus Subjective Cardiovascular: Denies: chest pain Respiratory: Reports: shortness of breath - better Gastrointestinal/Abdominal: Denies: abdominal pain Genitourinary: Denies: burning Objective Last 24 Hour Vital Signs Date Time Temp Pulse Resp B/P (MAP) Pulse Ox O2 Delivery O2 Flow Rate FiO2 06/26/18 16:00 98.1 70 19 119/87 (98) 97 06/26/18 16:00 67 06/26/18 15:50 75 18 99 Nasal Cannula 3.0 32 06/26/18 15:42 72 18 98 Nasal Cannula 3.0 32 06/26/18 12:00 97.0 82 20 130/82 (98) 97 06/26/18 12:00 60 06/26/18 11:28 70 18 99 Nasal Cannula 3.0 32 06/26/18 11:20 63 18 99 Nasal Cannula 3.0 32 06/26/18 09:00 Nasal Cannula 2.0 Nasal Cannula 2.0 06/26/18 08:51 115/69 06/26/18 08:49 57 115/69 06/26/18 08:00 97.0 82 20 130/82 (98) 97 06/26/18 08:00 67 06/26/18 07:38 80 22 97 Nasal Cannula 3.0 32 06/26/18 07:29 Nasal Cannula 3.0 32 06/26/18 07:29 96 Nasal Cannula 3.0 32 06/26/18 07:29 79 20 96 Nasal Cannula 3.0 32 06/26/18 04:00 73 06/26/18 04:00 97.4 80 20 133/93 (106) 97 06/26/18 03:59 81 22 95 Nasal Cannula 3.0 32 06/26/18 03:50 82 24 88 Nasal Cannula 2.0 06/26/18 00:00 71 06/26/18 00:00 97.5 72 19 127/87 (100) 97 06/25/18 23:45 Nasal Cannula 2.0 28 06/25/18 23:45 Nasal Cannula 2.0 28 06/25/18 21:29 79 127/89 06/25/18 21:00 Nasal Cannula 2.0 Nasal Cannula 2.0 06/25/18 20:00 67 06/25/18 20:00 97.4 79 19 127/89 (102) 95 06/25/18 19:49 84 20 98 Nasal Cannula 2.0 32 06/25/18 19:37 72 18 98 Nasal Cannula 2.0 32 06/25/18 19:37 Nasal Cannula 2.0 28 06/25/18 19:35 98 Nasal Cannula 2.0 28 General Appearance: alert Neck: supple Cardiovascular: regular rhythm Respiratory/Chest: lungs clear Abdomen: normal bowel sounds, non tender, soft Extremities: no swelling Intake and Output 06/25/18 06/26/18 19:00 07:00 Output Total 300 ml 300 ml Balance -300 ml -300 ml Output Urine Total 300 ml 300 ml # Bowel Movements 1 Laboratory Tests Test 06/26/18 06:00 White Blood Count 4.8 K/UL (4.8-10.8) Red Blood Count 3.88 M/UL (4.70-6.10) L Hemoglobin 12.7 G/DL (14.2-18.0) L Hematocrit 40.1 % (42.0-52.0) L Mean Corpuscular Volume 103 FL (80-99) H Mean Corpuscular Hemoglobin 32.6 PG (27.0-31.0) H Mean Corpuscular Hemoglobin Concent 31.6 G/DL (32.0-36.0) L Red Cell Distribution Width 17.8 % (11.6-14.8) H Platelet Count 161 K/UL (150-450) Mean Platelet Volume 7.4 FL (6.5-10.1) Neutrophils (%) (Auto) 58.5 % (45.0-75.0) Lymphocytes (%) (Auto) 23.7 % (20.0-45.0) Monocytes (%) (Auto) 9.9 % (1.0-10.0) Eosinophils (%) (Auto) 6.0 % (0.0-3.0) H Basophils (%) (Auto) 1.8 % (0.0-2.0) Sodium Level 140 MMOL/L (136-145) Potassium Level 5.1 MMOL/L (3.5-5.1) Chloride Level 104 MMOL/L (98-107) Carbon Dioxide Level 25 MMOL/L (21-32) Anion Gap 11 mmol/L (5-15) Blood Urea Nitrogen 72 mg/dL (7-18) H Creatinine 7.4 MG/DL (0.55-1.30) H Estimat Glomerular Filtration Rate 7.5 mL/min (>60) Glucose Level 79 MG/DL (74-106) Calcium Level 8.7 MG/DL (8.5-10.1) Microbiology Date/Time Source Procedure Growth Status 06/23/18 20:18 Rectum VRE Culture - Final Enterococcus Faecalis - Vre Complete Baldo Mcneill MD Jun 26, 2018 19:08
[2018-06-26 20:00] VITALS: BP_SYST 115; BP_SYST 133; BP_DIAS 57; BP_DIAS 80
[2018-06-26] MEDS: Dyna-Hex 2% Top Sol 2oz TOPIC SCH (20:29)
--- NOTE | 2018-06-26 22:43 | General Progress Note ---
Assessment/Plan Assessment/Plan chf cardiomyopathy renal failure pleural effusions dialysis diureses cards fup optimize failure meds yonathan inhibitor fluid restrition dvt and ulcer prophylaxis dc planning dw Dr Mcneill and Dr Lemons if stable dc after dilaysis tomorrow Subjective Allergies: Coded Allergies: PENICILLINS (Verified Allergy, Unknown, 06/04/18) TOMATO (Unverified Allergy, Unknown, 06/22/18) Subjective overall better no chest pain, dyspnea improved Objective Last 24 Hour Vital Signs Date Time Temp Pulse Resp B/P (MAP) Pulse Ox O2 Delivery O2 Flow Rate FiO2 06/26/18 21:00 Nasal Cannula 2.0 Nasal Cannula 2.0 06/26/18 20:30 105 115/57 06/26/18 20:00 98.2 105 18 115/57 (76) 95 06/26/18 20:00 70 06/26/18 19:45 68 18 97 Nasal Cannula 3.0 32 06/26/18 19:36 95 Nasal Cannula 3.0 32 06/26/18 19:36 Nasal Cannula 3.0 32 06/26/18 19:35 62 18 95 Nasal Cannula 3.0 32 06/26/18 16:00 98.1 70 19 119/87 (98) 97 06/26/18 16:00 67 06/26/18 15:50 75 18 99 Nasal Cannula 3.0 32 06/26/18 15:42 72 18 98 Nasal Cannula 3.0 32 06/26/18 12:00 97.0 82 20 130/82 (98) 97 06/26/18 12:00 60 06/26/18 11:28 70 18 99 Nasal Cannula 3.0 32 06/26/18 11:20 63 18 99 Nasal Cannula 3.0 32 06/26/18 09:00 Nasal Cannula 2.0 Nasal Cannula 2.0 06/26/18 08:51 115/69 06/26/18 08:49 57 115/69 06/26/18 08:00 97.0 82 20 130/82 (98) 97 06/26/18 08:00 67 06/26/18 07:38 80 22 97 Nasal Cannula 3.0 32 06/26/18 07:29 Nasal Cannula 3.0 32 06/26/18 07:29 96 Nasal Cannula 3.0 32 06/26/18 07:29 79 20 96 Nasal Cannula 3.0 32 06/26/18 04:00 73 06/26/18 04:00 97.4 80 20 133/93 (106) 97 06/26/18 03:59 81 22 95 Nasal Cannula 3.0 32 06/26/18 03:50 82 24 88 Nasal Cannula 2.0 06/26/18 00:00 71 06/26/18 00:00 97.5 72 19 127/87 (100) 97 06/25/18 23:45 Nasal Cannula 2.0 28 06/25/18 23:45 Nasal Cannula 2.0 28 Intake and Output 06/25/18 06/26/18 19:00 07:00 Output Total 300 ml 300 ml Balance -300 ml -300 ml Output Urine Total 300 ml 300 ml # Bowel Movements 1 Laboratory Tests 06/26/18 06:00: White Blood Count 4.8, Red Blood Count 3.88L, Hemoglobin 12.7L, Hematocrit 40.1L , Mean Corpuscular Volume 103H, Mean Corpuscular Hemoglobin 32.6H, Mean Corpuscular Hemoglobin Concent 31.6L, Red Cell Distribution Width 17.8H, Platelet Count 161, Mean Platelet Volume 7.4, Neutrophils (%) (Auto) 58.5, Lymphocytes (%) (Auto) 23.7, Monocytes (%) (Auto) 9.9, Eosinophils (%) (Auto) 6.0H, Basophils (%) (Auto) 1.8, Sodium Level 140, Potassium Level 5.1, Chloride Level 104, Carbon Dioxide Level 25, Anion Gap 11, Blood Urea Nitrogen 72H, Creatinine 7.4H, Estimat Glomerular Filtration Rate 7.5, Glucose Level 79, Calcium Level 8.7 Height (Feet): 5 Height (Inches): 10.00 Weight (Pounds): 158 General Appearance: WD/WN, no apparent distress Neck: supple Cardiovascular: normal rate Respiratory/Chest: lungs clear Abdomen: soft Objective 1 plus edema bilaterally Luís Baumann MD Jun 26, 2018 22:43
[2018-06-27] VITALS: BP 124/85
--- NOTE | 2018-06-27 01:19 | General Progress Note ---
Assessment/Plan Problem List: (1) Bipolar 1 disorder ICD Codes: F31.9 - Bipolar disorder, unspecified SNOMED: 283537688 (2) Anxiety disorder ICD Codes: F41.9 - Anxiety disorder, unspecified SNOMED: 895528529 [facility] Subjective Neurologic/Psychiatric: Reports: anxiety, depressed Allergies: Coded Allergies: PENICILLINS (Verified Allergy, Unknown, 06/04/18) TOMATO (Unverified Allergy, Unknown, 06/22/18) Objective Last 24 Hour Vital Signs Date Time Temp Pulse Resp B/P (MAP) Pulse Ox O2 Delivery O2 Flow Rate FiO2 06/26/18 23:36 Nasal Cannula 06/26/18 23:35 Nasal Cannula 06/26/18 21:00 Nasal Cannula 2.0 Nasal Cannula 2.0 06/26/18 20:30 105 115/57 06/26/18 20:00 98.2 105 18 115/57 (76) 95 06/26/18 20:00 70 06/26/18 19:45 68 18 97 Nasal Cannula 3.0 32 06/26/18 19:36 95 Nasal Cannula 3.0 32 06/26/18 19:36 Nasal Cannula 3.0 32 06/26/18 19:35 62 18 95 Nasal Cannula 3.0 32 06/26/18 16:00 98.1 70 19 119/87 (98) 97 06/26/18 16:00 67 06/26/18 15:50 75 18 99 Nasal Cannula 3.0 32 06/26/18 15:42 72 18 98 Nasal Cannula 3.0 32 06/26/18 12:00 97.0 82 20 130/82 (98) 97 06/26/18 12:00 60 06/26/18 11:28 70 18 99 Nasal Cannula 3.0 32 06/26/18 11:20 63 18 99 Nasal Cannula 3.0 32 06/26/18 09:00 Nasal Cannula 2.0 Nasal Cannula 2.0 06/26/18 08:51 115/69 06/26/18 08:49 57 115/69 06/26/18 08:00 97.0 82 20 130/82 (98) 97 06/26/18 08:00 67 06/26/18 07:38 80 22 97 Nasal Cannula 3.0 32 06/26/18 07:29 Nasal Cannula 3.0 32 06/26/18 07:29 96 Nasal Cannula 3.0 32 06/26/18 07:29 79 20 96 Nasal Cannula 3.0 32 06/26/18 04:00 73 06/26/18 04:00 97.4 80 20 133/93 (106) 97 06/26/18 03:59 81 22 95 Nasal Cannula 3.0 32 06/26/18 03:50 82 24 88 Nasal Cannula 2.0 Intake and Output 06/26/18 06/27/18 19:00 07:00 Intake Total 120 ml Output Total 3375 ml Balance -3255 ml Intake Oral 120 ml Output Urine Total 375 ml Hemodialysis UF 3000 ml Laboratory Tests 06/26/18 06:00: White Blood Count 4.8, Red Blood Count 3.88L, Hemoglobin 12.7L, Hematocrit 40.1L , Mean Corpuscular Volume 103H, Mean Corpuscular Hemoglobin 32.6H, Mean Corpuscular Hemoglobin Concent 31.6L, Red Cell Distribution Width 17.8H, Platelet Count 161, Mean Platelet Volume 7.4, Neutrophils (%) (Auto) 58.5, Lymphocytes (%) (Auto) 23.7, Monocytes (%) (Auto) 9.9, Eosinophils (%) (Auto) 6.0H, Basophils (%) (Auto) 1.8, Sodium Level 140, Potassium Level 5.1, Chloride Level 104, Carbon Dioxide Level 25, Anion Gap 11, Blood Urea Nitrogen 72H, Creatinine 7.4H, Estimat Glomerular Filtration Rate 7.5, Glucose Level 79, Calcium Level 8.7 Height (Feet): 5 Height (Inches): 10.00 Weight (Pounds): 158 General Appearance: alert Neurologic: oriented x 3, responsive, depressed affect Isaiah Dudley MD Jun 27, 2018 01:19
[2018-06-27] MEDS: Albuterol ud Inhalation HHN SCH ×5 (02:26→19:20)
[2018-06-27 04:00] VITALS: BP 125/83
[2018-06-27 08:00] VITALS: BP 112/74
[2018-06-27] MEDS: Calcium Acetate 667mg Tab ORAL SCH ×3 (08:59→18:15)
[2018-06-27] MEDS: Aspirin Baby 81mg ORAL SCH ×2 (08:59→09:32)
[2018-06-27] MEDS: Valproic Acid 250mg/5ml Liquid ORAL SCH ×2 (08:59→09:31)
[2018-06-27] MEDS: Heparin 5000 units/ml inj SUBQ SCH (09:00)
[2018-06-27] MEDS: Nephrovite tab (Rena-Vite) ORAL SCH ×2 (09:00→09:32)
[2018-06-27] MEDS: ALPRAZolam 0.25mg tab ORAL PRN (09:31)
[2018-06-27] MEDS: Benazepril 10mg tab ORAL SCH (09:32)
--- NOTE | 2018-06-27 11:37 | Cardiology Progress Note ---
Assessment/Plan Assessment/Plan 1. Atypical chest pain. 2. Cardiomyopathy systolic, felt to be probably nonischemic. 3. End-stage renal disease, on hemodialysis. 4. Hyperkalemia. 5. Chronic obstructive pulmonary disease. 6. Dietary indiscretion. 7. Recent pneumonia fludi / na restriction again discussed with pt acei low dose cannot increase as k elevated Isordil will be started has refused icd ischemia eval no reversibility recently trop neg tele sinus refuses dial;ysis to day Subjective Cardiovascular: Denies: chest pain, lightheadedness Respiratory: Denies: shortness of breath Gastrointestinal/Abdominal: Denies: abdominal pain Genitourinary: Denies: burning Objective Last 24 Hour Vital Signs Date Time Temp Pulse Resp B/P (MAP) Pulse Ox O2 Delivery O2 Flow Rate FiO2 06/27/18 10:40 Nasal Cannula 06/27/18 10:40 Nasal Cannula 06/27/18 09:32 118/74 06/27/18 09:32 118/74 06/27/18 09:30 67 118/74 06/27/18 08:00 96.8 67 20 112/74 (87) 99 06/27/18 08:00 69 06/27/18 08:00 Nasal Cannula 2.0 Nasal Cannula 2.0 06/27/18 07:39 74 18 99 Nasal Cannula 3.0 32 06/27/18 07:33 71 18 97 Nasal Cannula 3.0 32 06/27/18 07:33 Nasal Cannula 3.0 32 06/27/18 07:33 97 Nasal Cannula 3.0 32 06/27/18 04:00 73 06/27/18 04:00 98.0 64 18 125/83 (97) 99 06/27/18 02:26 Nasal Cannula 06/27/18 02:25 Nasal Cannula 06/27/18 00:00 60 06/27/18 00:00 97.8 60 18 124/85 (98) 97 06/26/18 23:36 Nasal Cannula 06/26/18 23:35 Nasal Cannula 06/26/18 21:00 Nasal Cannula 2.0 Nasal Cannula 2.0 06/26/18 20:30 105 115/57 06/26/18 20:00 97.3 68 18 133/80 (97) 98 06/26/18 20:00 70 06/26/18 19:45 68 18 97 Nasal Cannula 3.0 32 06/26/18 19:36 95 Nasal Cannula 3.0 32 06/26/18 19:36 Nasal Cannula 3.0 32 06/26/18 19:35 62 18 95 Nasal Cannula 3.0 32 06/26/18 16:00 98.1 70 19 119/87 (98) 97 06/26/18 16:00 67 06/26/18 15:50 75 18 99 Nasal Cannula 3.0 32 06/26/18 15:42 72 18 98 Nasal Cannula 3.0 32 06/26/18 12:00 97.0 82 20 130/82 (98) 97 06/26/18 12:00 60 General Appearance: no apparent distress, alert Neck: supple Cardiovascular: normal rate Respiratory/Chest: crackles/rales - right Abdomen: normal bowel sounds, non tender, soft Extremities: no swelling Intake and Output 06/26/18 06/27/18 19:00 07:00 Intake Total 120 ml Output Total 3375 ml Balance -3255 ml Intake Oral 120 ml Output Urine Total 375 ml Hemodialysis UF 3000 ml # Voids 3 Baldo Mcneill MD Jun 27, 2018 11:37
[2018-06-27 12:00] VITALS: BP 122/87
--- NOTE | 2018-06-27 14:39 | Pulmonology Progress Note ---
Assessment/Plan Problems: (1) COPD exacerbation (2) CHF (congestive heart failure) (3) ESRD on hemodialysis (4) Psychiatric disorder (5) Hemodialysis patient (6) Acute decompensated heart failure (7) Anxiety disorder (8) Bipolar 1 disorder (9) Right inguinal hernia Assessment/Plan Optimize pulmonary hygiene/mobilize as tolerated Titrate down FiO2 to keep SaO2 > 90% RTC and PRN HHN's HD per renal with UF as tolerated F/U cards recs, declines ICD, declines life vest Encourage compliance Off Abx, off steroids DVT Px: hep SQ Dispo planning Subjective Allergies: Coded Allergies: PENICILLINS (Verified Allergy, Unknown, 06/04/18) TOMATO (Unverified Allergy, Unknown, 06/22/18) Subjective AFVSS on 2l Refused HD Breathing stable No cough, no SOB, no CP, no F/C Objective Last 24 Hour Vital Signs Date Time Temp Pulse Resp B/P (MAP) Pulse Ox O2 Delivery O2 Flow Rate FiO2 06/27/18 10:40 Nasal Cannula 06/27/18 10:40 Nasal Cannula 06/27/18 09:32 118/74 06/27/18 09:32 118/74 06/27/18 09:30 67 118/74 06/27/18 08:00 96.8 67 20 112/74 (87) 99 06/27/18 08:00 69 06/27/18 08:00 Nasal Cannula 2.0 Nasal Cannula 2.0 06/27/18 07:39 74 18 99 Nasal Cannula 3.0 32 06/27/18 07:33 71 18 97 Nasal Cannula 3.0 32 06/27/18 07:33 Nasal Cannula 3.0 32 06/27/18 07:33 97 Nasal Cannula 3.0 32 06/27/18 04:00 73 06/27/18 04:00 98.0 64 18 125/83 (97) 99 06/27/18 02:26 Nasal Cannula 06/27/18 02:25 Nasal Cannula 06/27/18 00:00 60 06/27/18 00:00 97.8 60 18 124/85 (98) 97 06/26/18 23:36 Nasal Cannula 06/26/18 23:35 Nasal Cannula 06/26/18 21:00 Nasal Cannula 2.0 Nasal Cannula 2.0 06/26/18 20:30 105 115/57 06/26/18 20:00 97.3 68 18 133/80 (97) 98 06/26/18 20:00 70 06/26/18 19:45 68 18 97 Nasal Cannula 3.0 32 06/26/18 19:36 95 Nasal Cannula 3.0 32 18 19:36 Nasal Cannula 3.0 32 06/26/18 19:35 62 18 95 Nasal Cannula 3.0 32 06/26/18 16:00 98.1 70 19 119/87 (98) 97 06/26/18 16:00 67 06/26/18 15:50 75 18 99 Nasal Cannula 3.0 32 06/26/18 15:42 72 18 98 Nasal Cannula 3.0 32 Intake and Output 06/26/18 06/27/18 19:00 07:00 Intake Total 120 ml Output Total 3375 ml Balance -3255 ml Intake Oral 120 ml Output Urine Total 375 ml Hemodialysis UF 3000 ml # Voids 3 General Appearance: WD/WN, no acute distress HEENT: normocephalic, atraumatic, anicteric, mucous membranes moist Respiratory/Chest: chest wall non-tender, lungs clear - but distant, normal breath sounds, no respiratory distress, no accessory muscle use Cardiovascular: normal peripheral pulses, normal rate, regular rhythm Abdomen: normal bowel sounds, soft, non tender, no organomegaly, non distended , no mass Genitourinary: other - scrotal edema Extremities: no cyanosis, no clubbing Current Medications Medications (Trade) Dose Ordered Sig/Cynthia Route PRN Reason Start Time Stop Time Status Last Admin Dose Admin Acetaminophen (Tylenol) 500 mg Q6H PRN ORAL For Pain 06/24/18 08:30 07/23/18 02:29 06/24/18 20:48 Albuterol Sulfate (Proventil) 2.5 mg Q4HRT HHN 06/24/18 11:00 06/28/18 08:29 06/27/18 07:32 Alprazolam (Xanax) 0.5 mg Q6H PRN ORAL For Anxiety 06/24/18 13:43 07/01/18 13:42 06/27/18 09:31 Aspirin (ASA) 81 mg DAILY ORAL 06/24/18 09:00 07/23/18 08:59 06/27/18 09:32 Benazepril HCl (Lotensin) 10 mg DAILY ORAL 06/24/18 09:00 07/23/18 08:59 06/27/18 09:32 Calcium Acetate (Phoslo) 1,334 mg TID ORAL 06/24/18 09:00 07/23/18 08:59 06/27/18 09:31 Carvedilol (Coreg) 3.125 mg EVERY 12 HOURS ORAL 06/24/18 09:00 07/23/18 08:59 06/27/18 09:30 Chlorhexidine Gluconate (Antonia-Hex 2%) 1 applic DAILY@2000 TOPIC 06/24/18 20:00 07/23/18 19:59 06/26/18 20:29 Folic Acid (Folate) 1 mg DAILY ORAL 06/24/18 09:00 07/23/18 08:59 06/27/18 09:32 Heparin Sodium (Porcine) (Heparin 5000 units/ml) 5,000 units EVERY 12 HOURS SUBQ 06/24/18 09:00 07/23/18 08:59 06/26/18 20:31 Heparin Sodium (Porcine) (Heparin 5000 units/ml) 5,000 units POSTHD PRN INJ POST HD 06/26/18 13:40 06/27/18 23:59 Heparin Sodium (Porcine) (Heparin Sod 1000 units/ml 10ml) 2,000 unit ONCE PRN IV DIALYSIS 06/26/18 13:39 06/27/18 23:59 Hydralazine HCl (Apresoline) 10 mg Q6H PRN IV BLOOD PRESSURE 06/24/18 15:45 07/24/18 15:44 Ipratropium [place] (Atrovent) 500 mcg Q4H PRN HHN Shortness of Breath 06/24/18 08:30 06/28/18 08:29 Isosorbide Dinitrate (Isordil) 10 mg BID ORAL 06/27/18 09:00 07/27/18 08:59 06/27/18 09:32 Pantoprazole (Protonix) 40 mg ACBREAKFAST ORAL 06/24/18 09:00 07/24/18 08:59 06/27/18 06:47 Sodium Chloride 1,000 ml @ 500 mls/hr Q2H PRN IVLG sbp<90 during hd 06/26/18 13:39 06/27/18 23:59 Valproic Acid (Depakene) 750 mg EVERY 12 HOURS ORAL 06/24/18 09:00 07/23/18 09:29 06/27/18 09:31 Vitamin B Complex/ Vit C/Folic Acid (Nephrovite) 1 tab DAILY ORAL 06/24/18 09:00 07/23/18 14:29 06/27/18 09:32 Conrado Cantrell MD Jun 27, 2018 14:39
[2018-06-27 16:00] VITALS: BP 124/83
--- NOTE | 2018-06-27 16:10 | Nephrology Progress Note ---
Assessment/Plan Problem List: (1) ESRD on hemodialysis (2) CHF (congestive heart failure) (3) COPD exacerbation (4) Hyperkalemia (5) Inguinal hernia Plan Ok to Dc pt was told he may get SOB because his next HD is on Friday Subjective Subjective refused HD Objective Objective Last 24 Hour Vital Signs Date Time Temp Pulse Resp B/P (MAP) Pulse Ox O2 Delivery O2 Flow Rate FiO2 06/27/18 15:05 Nasal Cannula 06/27/18 15:05 Nasal Cannula 06/27/18 12:00 97.8 72 20 122/87 (99) 98 06/27/18 10:40 Nasal Cannula 06/27/18 10:40 Nasal Cannula 06/27/18 09:32 118/74 06/27/18 09:32 118/74 06/27/18 09:30 67 118/74 06/27/18 08:00 96.8 67 20 112/74 (87) 99 06/27/18 08:00 69 06/27/18 08:00 Nasal Cannula 2.0 Nasal Cannula 2.0 06/27/18 07:39 74 18 99 Nasal Cannula 3.0 32 06/27/18 07:33 71 18 97 Nasal Cannula 3.0 32 06/27/18 07:33 Nasal Cannula 3.0 32 06/27/18 07:33 97 Nasal Cannula 3.0 32 06/27/18 04:00 73 06/27/18 04:00 98.0 64 18 125/83 (97) 99 06/27/18 02:26 Nasal Cannula 06/27/18 02:25 Nasal Cannula 06/27/18 00:00 60 06/27/18 00:00 97.8 60 18 124/85 (98) 97 06/26/18 23:36 Nasal Cannula 06/26/18 23:35 Nasal Cannula 06/26/18 21:00 Nasal Cannula 2.0 Nasal Cannula 2.0 06/26/18 20:30 105 115/57 06/26/18 20:00 97.3 68 18 133/80 (97) 98 06/26/18 20:00 70 06/26/18 19:45 68 18 97 Nasal Cannula 3.0 32 06/26/18 19:36 95 Nasal Cannula 3.0 32 06/26/18 19:36 Nasal Cannula 3.0 32 12/21/18 19:35 62 18 95 Nasal Cannula 3.0 32 Intake and Output 06/26/18 06/27/18 19:00 07:00 Intake Total 120 ml Output Total 3375 ml Balance -3255 ml Intake Oral 120 ml Output Urine Total 375 ml Hemodialysis UF 3000 ml # Voids 3 Height (Feet): 5 Height (Inches): 10.00 Weight (Pounds): 139 Cardiovascular: normal rate Respiratory/Chest: lungs clear Extremities: other - no edema Robert Lemons MD Jun 27, 2018 16:10
[2018-06-27 18:15] VITALS: BP 122/87
--- NOTE | 2018-06-27 21:46 | General Progress Note ---
Assessment/Plan Problem List: (1) Bipolar 1 disorder ICD Codes: F31.9 - Bipolar disorder, unspecified SNOMED: 283845635 (2) Anxiety disorder ICD Codes: F41.9 - Anxiety disorder, unspecified SNOMED: 457812799 [facility] Subjective Neurologic/Psychiatric: Reports: anxiety, depressed, emotional problems Allergies: Coded Allergies: PENICILLINS (Verified Allergy, Unknown, 06/04/18) TOMATO (Unverified Allergy, Unknown, 06/22/18) Objective Last 24 Hour Vital Signs Date Time Temp Pulse Resp B/P (MAP) Pulse Ox O2 Delivery O2 Flow Rate FiO2 06/27/18 19:21 77 20 99 Nasal Cannula 3.0 32 06/27/18 19:21 Nasal Cannula 3.0 32 06/27/18 19:21 95 Nasal Cannula 3.0 32 06/27/18 19:14 78 22 95 Nasal Cannula 3.0 32 06/27/18 18:15 122/87 06/27/18 16:00 98.0 70 21 124/83 (97) 99 06/27/18 15:05 Nasal Cannula 06/27/18 15:05 Nasal Cannula 06/27/18 12:00 97.8 72 20 122/87 (99) 98 06/27/18 10:40 Nasal Cannula 06/27/18 10:40 Nasal Cannula 06/27/18 09:32 118/74 06/27/18 09:32 118/74 06/27/18 09:30 67 118/74 06/27/18 08:00 96.8 67 20 112/74 (87) 99 06/27/18 08:00 69 06/27/18 08:00 Nasal Cannula 2.0 Nasal Cannula 2.0 06/27/18 07:39 74 18 99 Nasal Cannula 3.0 32 06/27/18 07:33 71 18 97 Nasal Cannula 3.0 32 06/27/18 07:33 Nasal Cannula 3.0 32 06/27/18 07:33 97 Nasal Cannula 3.0 32 06/27/18 04:00 73 06/27/18 04:00 98.0 64 18 125/83 (97) 99 06/27/18 02:26 Nasal Cannula 06/27/18 02:25 Nasal Cannula 06/27/18 00:00 60 06/27/18 00:00 97.8 60 18 124/85 (98) 97 06/26/18 23:36 Nasal Cannula 06/26/18 23:35 Nasal Cannula Intake and Output 06/26/18 06/27/18 19:00 07:00 Intake Total 120 ml Output Total 3375 ml Balance -3255 ml Intake Oral 120 ml Output Urine Total 375 ml Hemodialysis UF 3000 ml # Voids 3 Height (Feet): 5 Height (Inches): 10.00 Weight (Pounds): 139 Isaiah Dudley MD Jun 27, 2018 21:46
--- NOTE | 2018-06-29 09:11 | Discharge Summary ---
Discharge Summary Discharge Summary _ DATE OF ADMISSION: 06/22/2018 DATE OF DISCHARGE: 06/27/2018 DISCHARGED BY: DR. Baumann REASON FOR ADMISSION: 63 years old male with past medical history of hypertension, end-stage renal disease on hemodialysis, ischemic cardiomyopathy with ejection fraction of 15%, COPD, psychiatric disorder, presented with midsternal chest pain and shortness of breath Pain was reported as gnawing but nonradiating. En route patient received aspirin and nitroglycerin with much improvement in pain after intervention. Upon evaluation vital signs were stable. Laboratory workup revealed no leukocytosis, hemoglobin 11.6 hematocrit 36.2. Troponin was negative. EKG revealed sinus rhythm, no acute ischemic changes. Pro BNP above 35,000. Potassium 6.7. BUN 70, creatinine 6.2, consistent with known history of end-stage renal disease. Albumin 2.6. Chest x-ray revealed bilateral pleural effusion and borderline interstitial congestion. Hyperkalemia was treated in the emergency department with Kayexalate ,insulin and dextrose. Patient admitted with diagnoses of chest pain, hyperkalemia, pleural effusion, COPD, fluid overload, end-stage renal disease, on hemodialysis, cardiomyopathy. CONSULTANTS: waste paper hammermill operator Dr. Dr. Mcneill pulmonary grinder outside diameter Dr. Brandon Lemons surgery Dr. Benson psychiatrist [facility]: Patient admitted to telemetry bed. Cardiology and nephrology consults were requested. Serial troponin were negative. EKG revealed no acute ischemic changes . Patient was ruled out for acute MN. Pro BNP greater than 35,000 was in line with renal failure. Patient with history of cardiomyopathy , st ejection fraction 15%. Patient was counseled on compliance with low sodium diet and fluid restriction . Previously patient had myocardial perfusion imaging , that showed a fixed defect but no reversible defect. It was felt that the patient had an nonischemic cardiomyopathy. Anti-failure regimen with diuretic, beta tone and VINCE inhibitor continued. Antiplatelet therapy with Aspirin along with Imdur continued. Patient declined ICD and LifeVest in the past and currently. Per waste paper hammermill operator, patient had atypical chest pain, likely due to severe cardiomyopathy. Cutting Machine Tender Decorative followed. Hemodialysis was urgently arranged. It was felt that the shortness of breath was likely due to fluid overload due to renal disease and severe cardiomyopathy on top of underlying COPD. Patient felt better after dialysis. Dialysis was further provided as per nephrology recommendations with close monitoring of volumes and renal parameters. Electrolytes corrected as needed. Potassium was stable after correction in ED and subsequent hemodialysis sessions. Renal vitamins and calcium supplement continued. Supplemental oxygen provided as needed to keep pulse oximetry above 92%. Pulmonary toilet provided [id number] and as needed. DVT prophylaxis provided. Surgeon/President closely followed . Surgeon followed for right inguinal hernia. Patient had a large right inguinal hernia with content into the scrotum. Contents were mainly bowel. Surgeon was unable to fully reduce hernia, hence hernia was fairly incarcerated , but no signs and symptoms of strangulation or obstructive symptoms. Patient was nontender on clinical examination. No umbilical hernia , no clear left-sided hernia. Patient had this hernia for years. Given cardiac history and current condition , surgeon did not recommend surgery unless the hernia becomes strangulated or life-threatening. Emergency surgery would be with very high morbidity and mortality risks. Elective surgery will carry a high risk as well, however the patient was explained that if he was interested, he can follow-up with surgeon as outpatient to discuss this option with multidisciplinary team. Patient started on the diet and was advanced as tolerated . Patient was able to tolerate diet, no nausea ,no vomiting. Patient had bowel movement. Psychiatrist followed and diagnosed patient with bipolar type I and anxiety disorder. Patient started on the Depakote. Reality orientation and supportive therapy provided. Patient clinically stabilized and was ready for discharge to assisted living. Encourage compliance with medications, diet and hemodialysis,. FINAL DIAGNOSES: Atypical chest pain, probably due to severe cardiomyopathy Cardiomyopathy systolic , probably nonischemic End-stage renal disease, on hemodialysis Fluid overload Bilateral pleural effusion Hyperkalemia-resolved COPD, possible exacerbation Noncompliance Fairly incarcerated right inguinal hernia, no evidence of obstruction or strangulation Bipolar 1 disorder Anxiety disorder DISCHARGE MEDICATIONS: See Medication Reconciliation list. DISCHARGE INSTRUCTIONS: Patient was discharged to assisted living. Follow-up with a primary care provider next week. I have been assigned to dictate discharge summary for this account. I was not involved in the patient's management. Dione Melo NP Jun 29, 2018 09:11
== END 2018-06-27 20:00 | DRG 194 ==
LOC: EDBD 19:27 → EMR 19:58 → 2W 21:18 → EDBEDREQSVC 21:57 → EDBEDREQ 21:57 → EDBEDREQDT 06-23 00:07 → EDBEDREQ 06-23 00:07 → EDBEDREQSVC 06-23 00:07 → EDBEDREQTM 06-23 00:07 → EDBEDREQ 06-23 00:33 → 2E 06-24 07:06
PROC: 5A1D70Z Performance of Urinary Filtration, Intermittent, Less than 6 Hours Per Day (ICD-10-PCS; principal; 2018-06-23)
DX: I13.2 Hypertensive heart and chronic kidney disease with heart failure and with stage 5 chronic kidney disease, or end stage renal disease (principal); N18.6 End stage renal disease; I42.8 Other cardiomyopathies; E87.5 Hyperkalemia; J44.1 Chronic obstructive pulmonary disease with (acute) exacerbation; K40.30 Unilateral inguinal hernia, with obstruction, without gangrene, not specified as recurrent; I50.23 Acute on chronic systolic (congestive) heart failure; R07.89 Other chest pain; Z99.2 Dependence on renal dialysis; F31.9 Bipolar disorder, unspecified; F41.9 Anxiety disorder, unspecified; Z91.19 Patient's noncompliance with other medical treatment and regimen; Z87.891 Personal history of nicotine dependence; Z88.0 Allergy status to penicillin; Z91.018 Allergy to other foods; Z79.82 Long term (current) use of aspirin
CPT/HCPCS: 36415; 71045; 80048; 80053; 82962; 83880; 84484; 85025; 85610; 85730; 87081; 93005; 94640; 94664; 94760; 96374; 96375; 99291